=== PATIENT | female | born 1975 ===

== ENCOUNTER 2020-09-27 09:51 | Outpatient (REF) | payer OTHER, SELFPAY ==
--- NOTE | 2020-09-27 10:30 | XR_ITS ---
EXAMINATION: XR HAND WRIST, RIGHT CLINICAL INFORMATION: Pain in right hand COMPARISON: None TECHNIQUE: The patient's pain is indicated to be at the level of the wrist. 4 radiographs focused on the wrist and proximal hand are provided. FINDINGS: Alignment is normal. Small osteophytes are present at the distal radioulnar joint. Otherwise, bones, joints and soft tissues are unremarkable. No evidence of carpal bone fracture, subluxation or focal soft tissue swelling. No chondrocalcinosis. 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
[2020-09-27 11:04] LABS: MANUAL DIFF FLAG NO
[2020-09-27 11:13] LABS: Basophils Absolute Auto 0.1 X10*3/uL (0.0-0.2); Basophils Percent Auto 0.9 % (0-2); Eosinophils Absolute Auto 0.1 X10*3/uL (0.0-0.4); Eosinophils Percent Auto 1.1 % (0-4); Hematocrit 42.5 % (37-47); Hemoglobin 13.2 g/dl (12.0-16.0); Imm Gran Abs Auto 0.02 X10*3/uL (0.00-0.03); Imm Gran Pct Auto 0.3 % (0.0-0.4); Lymphocytes Percent Auto 26.1 % (20-40); Mean Corpuscular HGB Conc 31.1 g/dl (31.0-35.0); Mean Corpuscular Hemoglobin 27.5 pg (27.0-33.0); Mean Corpuscular Volume 88.5 fL (80-98); Mean Platelet Volume 9.9 fL (9.4-12.3); Monocytes Absolute Auto 0.5 X10*3/uL (0.1-1.2); Monocytes Percent Auto 6.7 % (2-11); Neutrophils Absolute Auto 4.9 X10*3/uL (2.0-8.3); Neutrophils Percent Auto 64.9 % (45-73); Platelet Count 403 X10*3/uL (160-400); Red Cell Distribution Width 13.1 % (11.0-16.0); White Blood Count 7.5 X10*3/uL (4.8-10.8)
[2020-09-27 12:09] LABS: TSH reflex Free T4 1.19 mIU/mL (0.32-4.0)
[2020-09-27 12:11] LABS: Alanine Aminotransferase 30 U/L (0-31); Albumin Level 4.3 g/dL (3.5-5.0); Alkaline Phosphatase 96 U/L (39-117); Anion Gap 15 (12-20); Aspartate Amino Transferase 18 U/L (5-31); Bilirubin Total 0.4 mg/dL (0.0-1.0); Blood Urea Nitrogen 14 mg/dL (9-16); Calcium 9.1 mg/dL (8.4-10.2); Carbon Dioxide 26 mmol/L (22-29); Chloride 102 mmol/L (96-108); Cholesterol 199 mg/dL; Estimated Glomerular Filt Rate > 60; Glucose Fasting 96 mg/dL (60-99); HDL Cholesterol 60 mg/dL; LDL Cholesterol Calculated 114 mg/dl; Potassium 4.4 mmol/l (3.3-5.1); Sodium 139 mmol/L (135-145); Total Protein 7.2 g/dL (6.5-8.0); Triglycerides 128 mg/dL
[2020-10-01 13:27] LABS: Vitamin D 25-OH, D2 <4 ng/mL; Vitamin D 25-OH, D3 15 ng/mL; Vitamin D 25-OH, Total 15 ng/mL (30-100)
== END 2020-09-27 09:52 | disposition home or self-care (01) ==
LOC: HO.LAB 09:51
PROVIDERS: PCP Nurse Practitioner Family; Visit Provider Nurse Practitioner Family
DX: M79.641 Pain in right hand (principal); E04.1 Nontoxic single thyroid nodule; M79.7 Fibromyalgia; F32.9 Major depressive disorder, single episode, unspecified; E55.9 Vitamin D deficiency, unspecified
CPT/HCPCS: 36415; 73110; 73130; 80053; 80061; 82306; 84443; 85025

== ENCOUNTER 2020-10-12 09:54 | Outpatient (REF) | payer OTHER, SELFPAY ==
--- NOTE | 2020-10-12 09:57 | US_ITS ---
EXAMINATION: US THYROID CLINICAL INFORMATION: Nontoxic single thyroid nodule. COMPARISON: Ultrasound soft tissue head/neck thyroid dated 01/20/2018 and 12/03/2017. TECHNIQUE: Linear transducer sesay-scale and color Doppler examination with attention to the region of the thyroid. FINDINGS: SIZE: Measurements of the thyroid lobes and nodules are given in sagittal, anteroposterior and transverse dimensions respectively. Right Thyroid Lobe: 5.2 x 1.4 x 1.1 cm, volume 4.2 mL. Previously 5.6 x 1.8 x 1.4 cm, volume 7.5 mL. Parenchyma: The gland echotexture is heterogeneous. Thyroid vascularity is normal. Left Thyroid Lobe: 4.9 x 1.4 x 1.8 cm, volume 6.4 mL. Previously 4.8 x 1.2 x 1.5 cm, volume 4.5 mL. Parenchyma: The gland echotexture is homogeneous. Thyroid vascularity is normal. Isthmus: 0.3 cm in maximum AP dimension. Previously 0.3 cm. RIGHT THYROID LOBE: No nodules. Previously seen 0.3 cm nodule not identified on the current examination. ISTHMUS: No nodules. LEFT THYROID LOBE: No nodules. NODES: No lymphadenopathy is seen in the tissue surrounding the thyroid gland. US/US thyroid IMPRESSION: 1. Homogeneous thyroid parenchyma with normal vascularity. 2. No thyromegaly or discrete thyroid nodule. 3. Previously seen right-sided 0.3 cm nodule not identified on the current examination.
== END 2020-10-12 09:55 | disposition home or self-care (01) ==
LOC: HO.HMGCX 09:54
PROVIDERS: PCP Nurse Practitioner Family; Visit Provider Nurse Practitioner Family
DX: E04.1 Nontoxic single thyroid nodule (principal)
CPT/HCPCS: 76536

== ENCOUNTER 2020-12-08 07:44 | Outpatient (REF) | payer OTHER, SELFPAY ==
--- NOTE | 2020-12-08 08:01 | ECG_ITS ---
Test Reason : CP Blood Pressure : / mmHG Vent. Rate : 055 BPM Atrial Rate : 055 BPM P-R Int : 132 ms QRS Dur : 086 ms QT Int : 442 ms P-R-T Axes : 035 025 019 degrees QTc Int : 422 ms Sinus bradycardia Otherwise normal ECG No previous ECGs available Referred By: Jana Bloom Electronically Signed By:HARVEY MOSQUERA MD
[2020-12-08 08:16] LABS: MANUAL DIFF FLAG NO
[2020-12-08 08:45] LABS: Basophils Absolute Auto 0.1 X10*3/uL (0.0-0.2); Eosinophils Absolute Auto 0.1 X10*3/uL (0.0-0.4); Eosinophils Percent Auto 1.6 % (0-4); Hematocrit 43.1 % (37-47); Hemoglobin 13.5 g/dl (12.0-16.0); Imm Gran Abs Auto 0.02 X10*3/uL (0.00-0.03); Imm Gran Pct Auto 0.3 % (0.0-0.4); Lymphocytes Absolute Auto 1.6 X10*3/uL (1.2-4.9); Lymphocytes Percent Auto 25.7 % (20-40); Mean Corpuscular HGB Conc 31.3 g/dl (31.0-35.0); Mean Corpuscular Hemoglobin 27.7 pg (27.0-33.0); Mean Corpuscular Volume 88.5 fL (80-98); Mean Platelet Volume 9.7 fL (9.4-12.3); Monocytes Absolute Auto 0.4 X10*3/uL (0.1-1.2); Monocytes Percent Auto 5.8 % (2-11); Neutrophils Percent Auto 65.6 % (45-73); Platelet Count 362 X10*3/uL (160-400); Red Blood Count 4.87 X10*6/uL (4.20-5.50); Red Cell Distribution Width 13.5 % (11.0-16.0); White Blood Count 6.1 X10*3/uL (4.8-10.8)
[2020-12-08 09:13] LABS: Alanine Aminotransferase 33 U/L (0-31); Alkaline Phosphatase 95 U/L (39-117); Anion Gap 13 (12-20); Aspartate Amino Transferase 22 U/L (5-31); Bilirubin Total 0.5 mg/dL (0.0-1.0); Blood Urea Nitrogen 12 mg/dL (9-16); Calcium 8.5 mg/dL (8.4-10.2); Carbon Dioxide 24 mmol/L (22-29); Chloride 106 mmol/L (96-108); Cholesterol 185 mg/dL; Estimated Glomerular Filt Rate > 60; Glucose Fasting 110 mg/dL (60-99); HDL Cholesterol 54 mg/dL; LDL Cholesterol Calculated 116 mg/dl; Potassium 4.4 mmol/L (3.3-5.1); Sodium 139 mmol/L (135-145); Total Protein 6.9 g/dL (6.5-8.0); Triglycerides 75 mg/dL; Troponin-I High Sensitivity < 3.5 ng/L (<3.5-17.0)
== END 2020-12-08 07:45 | disposition home or self-care (01) ==
LOC: HO.LAB 07:44
PROVIDERS: PCP Nurse Practitioner Family; Visit Provider Nurse Practitioner Family
DX: R07.9 Chest pain, unspecified (principal)
CPT/HCPCS: 36415; 80053; 80061; 84484; 85025; 93005

== ENCOUNTER 2020-12-26 09:56 | Outpatient (REF) | payer OTHER, SELFPAY ==
[2020-12-28 22:17] LABS: HPV mRNA E6/E7 rflx Not Detected (Not Detected)
== END 2020-12-26 09:57 | disposition home or self-care (01) ==
LOC: HO.LAB 09:56
PROVIDERS: Visit Provider Advanced Practice Midwife
DX: Z01.419 Encounter for gynecological examination (general) (routine) without abnormal findings (principal); N92.6 Irregular menstruation, unspecified; N92.0 Excessive and frequent menstruation with regular cycle; E28.2 Polycystic ovarian syndrome; M79.7 Fibromyalgia; E55.9 Vitamin D deficiency, unspecified; Z85.41 Personal history of malignant neoplasm of cervix uteri; Z80.3 Family history of malignant neoplasm of breast; Z80.41 Family history of malignant neoplasm of ovary
CPT/HCPCS: 87624; 88142

== ENCOUNTER → 2020-12-28 10:02 | Outpatient (BNVA) | payer OTHER, SELFPAY | PROVIDERS: PCP Nurse Practitioner Family; Visit Provider Internal Medicine | DX: R07.2 Precordial pain (principal) | CPT/HCPCS: 99202 ==

== ENCOUNTER 2021-02-26 08:42 | Outpatient (REF) | payer OTHER, SELFPAY ==
--- NOTE | ~2021-02-26 | MM_ITS ---
EXAMINATION: MM SCREENING DIGITAL BREAST TOMOSYNTHESIS, BILATERAL CLINICAL INFORMATION: Screening. Asymptomatic. The lifetime risk of breast cancer based on the Tyrer-Cuzick Model is 20.4%. Additional annual screening with breast MRI may be of benefit in women with a Score of 20% or greater. COMPARISON: Mammography: April 29, 2017 and April 23, 2016 TECHNIQUE: Digital breast tomosynthesis is performed in both the craniocaudal and mediolateral oblique views along with computer-aided detection (CAD). Synthesized 2D images are generated from the tomosynthesis. FINDINGS: The breasts are extremely dense, which lowers the sensitivity of mammography (ACR BI-RADS breast composition Category d). There are no significant masses, abnormal calcifications, or other abnormalities. MM/MM tomosynthesis screening BI IMPRESSION: There are no significant changes from prior study. ASSESSMENT: BI-RADS 1: Negative RECOMMENDATION: Routine annual mammography screening. Consideration of possible screening MRI. This patient's information was entered into a reminder system with a target due date for their next mammogram.
== END 2021-02-26 08:43 | disposition home or self-care (01) ==
LOC: HO.MAMMO 08:42
PROVIDERS: Visit Provider Internal Medicine
DX: Z12.31 Encounter for screening mammogram for malignant neoplasm of breast (principal)
CPT/HCPCS: 77063; 77067

== ENCOUNTER 2021-05-02 09:07 | Outpatient (REF) | payer OTHER, SELFPAY ==
--- NOTE | ~2021-05-02 | XR_ITS ---
EXAMINATION: XR KNEE, RIGHT CLINICAL INFORMATION: Spleen of the unspecified site of the right knee. COMPARISON: None TECHNIQUE: Four views of the right knee. FINDINGS: Osseous mineralization is normal. There is no evidence of fracture or dislocation. Joint spaces are well preserved. No evidence of subarticular sclerosis or cystic changes. Patellar enthesopathic changes are noted at the insertion of from quadriceps tendon. No evidence of suprapatellar joint effusion. No dystrophic soft tissue calcifications. XR/XR knee RT 4V IMPRESSION: Mild changes of patellar enthesopathy at the insertion of quadriceps tendon. No acute osseous abnormality in the right knee.
== END 2021-05-02 09:08 | disposition home or self-care (01) ==
LOC: HO.XRAY 09:07
PROVIDERS: PCP Internal Medicine; Visit Provider Internal Medicine
DX: S83.91XA Sprain of unspecified site of right knee, initial encounter (principal); X58.XXXA Exposure to other specified factors, initial encounter; Y93.9 Activity, unspecified; Y92.9 Unspecified place or not applicable; Y99.9 Unspecified external cause status
CPT/HCPCS: 73564

== ENCOUNTER 2021-06-14 08:33 | Outpatient (REF) | payer OTHER, SELFPAY ==
--- NOTE | ~2021-06-14 | XR_ITS ---
EXAMINATION: XR SHOULDER, LEFT CLINICAL INFORMATION: Pain in left shoulder COMPARISON: None TECHNIQUE: AP external rotation, Grashey, scapular Y, and axillary views of the left shoulder. FINDINGS: The bones and soft tissues are normal. No fracture. Glenohumeral and acromioclavicular alignment is anatomic with normal joint space. No abnormal soft tissue calcifications. XR/XR shoulder LT min 2V IMPRESSION: Normal left shoulder.
[2021-06-14 10:32] LABS: Hematocrit 42.7 % (37-47); Hemoglobin 13.4 g/dl (12.0-16.0); Mean Corpuscular HGB Conc 31.4 g/dl (31.0-35.0); Mean Corpuscular Hemoglobin 28.2 pg (27.0-33.0); Mean Corpuscular Volume 89.9 fL (80-98); Mean Platelet Volume 10.2 fL (9.4-12.3); Platelet Count 611 X10*3/uL (160-400); Red Blood Count 4.75 X10*6/uL (4.20-5.50); Red Cell Distribution Width 13.3 % (11.0-16.0); White Blood Count 9.5 X10*3/uL (4.8-10.8)
[2021-06-14 10:34] LABS: Estimated Average Glucose 100 mg/dL; Hemoglobin A1c % 5.1 %
[2021-06-14 10:43] LABS: Alanine Aminotransferase 22 U/L (0-31); Albumin Level 4.1 g/dL (3.5-5.0); Alkaline Phosphatase 102 U/L (39-117); Anion Gap 13 (12-20); Aspartate Amino Transferase 16 U/L (5-31); Bilirubin Total 0.5 mg/dL (0.0-1.0); Blood Urea Nitrogen 9 mg/dL (9-16); C Reactive Protein 0.61 mg/dL (< or = 0.50); Calcium 9.9 mg/dL (8.4-10.2); Carbon Dioxide 28 mmol/L (22-29); Chloride 102 mmol/L (96-108); Estimated Glomerular Filt Rate > 60; Glucose Fasting 96 mg/dL (60-99); Iron 139 mcg/dL (30-160); Percent Iron Saturation 39 % (15-50); Potassium 4.6 mmol/L (3.3-5.1); Sodium 138 mmol/L (135-145); Total Iron Binding Capacity 352 mcg/dL (228-428); Total Protein 7.1 g/dL (6.5-8.0); Unsaturated Iron Binding 213 ug/dL
[2021-06-14 10:51] LABS: Rheumatoid Factor < 15.0 IU/mL (<15.0)
[2021-06-14 11:03] LABS: TSH reflex Free T4 1.22 uIU/mL (0.32-4.0); Vitamin D 25-OH Total 27.7 ng/mL (>30)
[2021-06-14 11:08] LABS: Folate 16.1 ng/mL (> or = 4.0); Vitamin B12 684 pg/mL (200-900)
[2021-06-14 12:12] LABS: Erythrocyte Sedimentation Rate 8 MM/HR (0-20)
[2021-06-16 11:51] LABS: Anti Nuclear Antibody Screen NEGATIVE (NEGATIVE)
[2021-06-18 17:46] LABS: Cyclic Citrullinated Peptide <16 UNITS
== END 2021-06-14 08:34 | disposition home or self-care (01) ==
LOC: HO.XRAY 08:33
PROVIDERS: PCP Internal Medicine; Visit Provider Physician Assistant
DX: Z13.29 Encounter for screening for other suspected endocrine disorder (principal); R07.89 Other chest pain; D50.9 Iron deficiency anemia, unspecified; M79.7 Fibromyalgia; E55.9 Vitamin D deficiency, unspecified; M25.512 Pain in left shoulder
CPT/HCPCS: 36415; 73030; 80053; 82306; 82607; 82746; 83036; 83540; 84443; 85027; 85652; 86038; 86039; 86140; 86200; 86431

== ENCOUNTER → 2021-07-06 07:47 | Outpatient (REF) | payer OTHER, SELFPAY ==
--- NOTE | 2021-07-06 07:50 | CA_ITS ---
Acquisition Time: 2021-07-06 07:53:03 Total Exercise Time: 00:06:15 Test Indications: Chest Pain Medications: SEE CHART Protocol: CONCEPCION Max HR: 137 BPM 78% of Pred: 175 BPM Max BP: 134/080 mmHG Max Work Load: 7.3 METS Exercise stress test with exercise 6 min 15 sec of Concepcion protocol, achieving 79% MPHR and request to stop due to difficulty keeping up with speed of treadmill in stage 3 and moderate sob, with 5/10 mid chest burning at baseline which did not change during exercise or recovery, without arrythmia, with normotensive response to exercise, with nondiagnostic EKG for ischemia due to suboptimal heart rate. In recovery her breathing improved to normal. Test reviewed with Dr Engle. Message sent to PCP regarding the above results. Recommend exercise nuclear stress test if further eval for ischemia is warranted. Referred By: Lebron Dooley Overread By: RICHARD FLOWER
== END ==
LOC: HO.CARD 07:47
PROVIDERS: PCP Internal Medicine; Visit Provider Physician Assistant
DX: R07.89 Other chest pain (principal)
CPT/HCPCS: 93017

== ENCOUNTER → 2021-07-12 10:56 | Outpatient (BNVA) | payer OTHER, SELFPAY | PROVIDERS: PCP Internal Medicine; Visit Provider Physician Assistant | DX: M75.52 Bursitis of left shoulder (principal); M79.7 Fibromyalgia; E04.1 Nontoxic single thyroid nodule; E55.9 Vitamin D deficiency, unspecified; F41.8 Other specified anxiety disorders | CPT/HCPCS: 99202 ==

== ENCOUNTER 2021-07-13 08:48 | Outpatient (RCR) | payer OTHER, SELFPAY ==
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
== END 2021-07-18 11:33 | disposition home or self-care (01) ==
LOC: HO.PTCHIC 08:48
PROVIDERS: PCP Internal Medicine; Visit Provider Physician Assistant
DX: M51.9 Unspecified thoracic, thoracolumbar and lumbosacral intervertebral disc disorder (principal); M25.512 Pain in left shoulder
CPT/HCPCS: 97110; 97162

== ENCOUNTER 2021-07-16 14:05 | Outpatient (REF) | payer OTHER, SELFPAY ==
[2021-07-17 02:35] LABS: CT PCR NOT DETECTED (Not Detect.); NG PCR NOT DETECTED (Not Detect.)
[2021-07-17 09:25] LABS: BV Int Neg Control Negative (Negative); BV Int Pos Control Positive (Positive)
== END 2021-07-16 14:06 | disposition home or self-care (01) ==
LOC: HO.LAB 14:05
PROVIDERS: PCP Internal Medicine; Visit Provider Advanced Practice Midwife
DX: R10.2 Pelvic and perineal pain (principal); N93.9 Abnormal uterine and vaginal bleeding, unspecified; Z32.02 Encounter for pregnancy test, result negative
CPT/HCPCS: 81003; 81025; 87480; 87491; 87510; 87591; 87660; 99212

== ENCOUNTER → 2021-08-30 14:31 | Outpatient (BNVA) | payer OTHER, SELFPAY | PROVIDERS: PCP Internal Medicine; Visit Provider Orthopaedic Surgery | DX: M25.562 Pain in left knee (principal); M25.561 Pain in right knee; M79.7 Fibromyalgia | CPT/HCPCS: 99202 ==

== ENCOUNTER 2021-10-31 10:28 | Outpatient (REF) | payer OTHER, SELFPAY ==
--- NOTE | ~2021-10-31 | US_ITS ---
EXAMINATION: US THYROID CLINICAL INFORMATION: Nontoxic single thyroid nodule. COMPARISON: Ultrasound soft tissue head/neck thyroid dated 10/12/2020. Ultrasound soft tissue head and neck 01/20/2018. TECHNIQUE: Linear transducer grayscale and color Doppler examination with attention to the region of the thyroid. FINDINGS: SIZE: Measurements of the thyroid lobes and nodules are given in sagittal, anteroposterior and transverse dimensions respectively. Right Thyroid Lobe: 5.1 x 1.4 x 1.5 cm, volume 5.6 mL. Previously 5.2 x 1.4 x 1.1 cm, volume 4.2 mL. Parenchyma: The gland echotexture is homogeneous. Thyroid vascularity is normal. Left Thyroid Lobe: 5.1 x 1.0 x 1.7 cm, volume 4.5 mL. Previously 4.9 x 1.4 x 1.8 cm, volume 6.4 mL. Parenchyma: The gland echotexture is homogeneous. Thyroid vascularity is normal. Isthmus: 0.3 cm in maximum AP dimension. Previously 0.3 cm. No focal thyroid nodule is seen. NODES: No lymphadenopathy is seen in the tissue surrounding the thyroid gland. US/US thyroid IMPRESSION: Normal thyroid ultrasound.
== END 2021-10-31 10:29 | disposition home or self-care (01) ==
LOC: HO.HMGCX 10:28
PROVIDERS: Visit Provider Internal Medicine
DX: E04.1 Nontoxic single thyroid nodule (principal)
CPT/HCPCS: 76536

== ENCOUNTER 2021-11-10 08:28 | Outpatient (REF) | payer OTHER, SELFPAY ==
--- NOTE | ~2021-11-10 | XR_ITS ---
EXAMINATION: CHEST. BILATERAL FOOT. CLINICAL INFORMATION: Cough. COMPARISON: None TECHNIQUE: Chest 2 views. 3. Views each foot. FINDINGS: Chest 2 views: The lungs are well-expanded and clear acute process. Heart size and pulmonary vascularity is normal. No gross bony abnormality seen. Left foot: Visualized intertarsal, metatarsophalangeal and interphalangeal joints are normal. No bony erosive changes or loose body seen. No acute fracture or dislocation. The ankle mortise and subtalar joint is normal. T here is moderate dorsal tarsal metatarsal spurring. There is a moderate size retrocalcaneal and small calcaneal heel enthesophytes. Right foot: The intertarsal, tarsometatarsal, metatarsophalangeal and interphalangeal joint spaces are maintained normal. No beta bony erosive changes. There are no loose bodies or soft tissue swelling. There is a small calcaneal and a moderate-sized retrocalcaneal enthesophyte. Ankle mortise and subtalar joints are normal. XR/XR chest 2V IMPRESSION: Unremarkable chest exam. Bilateral calcaneal and calcaneal enthesophytes. No visible acute fracture, dislocation or subluxation seen. There is a dorsal tarsometatarsal spurring right foot.
--- NOTE | ~2021-11-10 | XR_ITS ---
EXAMINATION: CHEST. BILATERAL FOOT. CLINICAL INFORMATION: Cough. COMPARISON: None TECHNIQUE: Chest 2 views. 3. Views each foot. FINDINGS: Chest 2 views: The lungs are well-expanded and clear acute process. Heart size and pulmonary vascularity is normal. No gross bony abnormality seen. Left foot: Visualized intertarsal, metatarsophalangeal and interphalangeal joints are normal. No bony erosive changes or loose body seen. No acute fracture or dislocation. The ankle mortise and subtalar joint is normal. T here is moderate dorsal tarsal metatarsal spurring. There is a moderate size retrocalcaneal and small calcaneal heel enthesophytes. Right foot: The intertarsal, tarsometatarsal, metatarsophalangeal and interphalangeal joint spaces are maintained normal. No beta bony erosive changes. There are no loose bodies or soft tissue swelling. There is a small calcaneal and a moderate-sized retrocalcaneal enthesophyte. Ankle mortise and subtalar joints are normal. XR/XR foot LT min 3V IMPRESSION: Unremarkable chest exam. Bilateral calcaneal and calcaneal enthesophytes. No visible acute fracture, dislocation or subluxation seen. There is a dorsal tarsometatarsal spurring right foot.
--- NOTE | ~2021-11-10 | XR_ITS ---
EXAMINATION: CHEST. BILATERAL FOOT. CLINICAL INFORMATION: Cough. COMPARISON: None TECHNIQUE: Chest 2 views. 3. Views each foot. FINDINGS: Chest 2 views: The lungs are well-expanded and clear acute process. Heart size and pulmonary vascularity is normal. No gross bony abnormality seen. Left foot: Visualized intertarsal, metatarsophalangeal and interphalangeal joints are normal. No bony erosive changes or loose body seen. No acute fracture or dislocation. The ankle mortise and subtalar joint is normal. T here is moderate dorsal tarsal metatarsal spurring. There is a moderate size retrocalcaneal and small calcaneal heel enthesophytes. Right foot: The intertarsal, tarsometatarsal, metatarsophalangeal and interphalangeal joint spaces are maintained normal. No beta bony erosive changes. There are no loose bodies or soft tissue swelling. There is a small calcaneal and a moderate-sized retrocalcaneal enthesophyte. Ankle mortise and subtalar joints are normal. XR/XR foot RT min 3V IMPRESSION: Unremarkable chest exam. Bilateral calcaneal and calcaneal enthesophytes. No visible acute fracture, dislocation or subluxation seen. There is a dorsal tarsometatarsal spurring right foot.
[2021-11-10 09:17] LABS: MANUAL DIFF FLAG NO
[2021-11-10 09:31] LABS: Basophils Absolute Auto 0.1 X10*3/uL (0.0-0.2); Basophils Percent Auto 0.7 % (0-2); Eosinophils Absolute Auto 0.2 X10*3/uL (0.0-0.4); Eosinophils Percent Auto 1.7 % (0-4); Hematocrit 43.7 % (37.0-47.0); Hemoglobin 13.9 g/dl (12.0-16.0); Imm Gran Abs Auto 0.03 X10*3/uL (0.00-0.03); Imm Gran Pct Auto 0.3 % (0.0-0.4); Lymphocytes Absolute Auto 2.1 X10*3/uL (1.2-4.9); Lymphocytes Percent Auto 23.5 % (20-40); Mean Corpuscular HGB Conc 31.8 g/dl (31.0-35.0); Mean Corpuscular Hemoglobin 28.4 pg (27.0-33.0); Mean Corpuscular Volume 89.2 fL (80.0-98.0); Mean Platelet Volume 9.4 fL (9.4-12.3); Monocytes Absolute Auto 0.5 X10*3/uL (0.1-1.2); Monocytes Percent Auto 5.4 % (2-11); Neutrophils Percent Auto 68.4 % (45-73); Platelet Count 404 X10*3/uL (160-400); Red Cell Distribution Width 13.2 % (11.0-16.0); White Blood Count 8.8 X10*3/uL (4.8-10.8)
[2021-11-15 11:51] LABS: Vitamin D 25-OH, D2 <4 ng/mL; Vitamin D 25-OH, D3 26 ng/mL; Vitamin D 25-OH, Total 26 ng/mL (30-100)
== END 2021-11-10 08:29 | disposition home or self-care (01) ==
LOC: HO.XRAY 08:28
PROVIDERS: PCP Internal Medicine; Visit Provider Internal Medicine
DX: M79.671 Pain in right foot (principal); M79.672 Pain in left foot; R05.9 Cough, unspecified; E55.9 Vitamin D deficiency, unspecified; R79.89 Other specified abnormal findings of blood chemistry
CPT/HCPCS: 36415; 71046; 73630; 82306; 85025

== ENCOUNTER 2021-11-26 13:43 | Outpatient (REF) | payer OTHER, SELFPAY ==
[2021-11-28 13:46] LABS: Transglutaminase Ab IgG <1.0 U/mL; Transglutaminase IgA <1.0 U/mL
== END 2021-11-26 13:44 | disposition home or self-care (01) ==
LOC: HO.LAB 13:43
PROVIDERS: PCP Internal Medicine; Referring Provider Internal Medicine; Visit Provider Nurse Practitioner Family
DX: R10.11 Right upper quadrant pain (principal); R13.10 Dysphagia, unspecified; K59.04 Chronic idiopathic constipation; K21.9 Gastro-esophageal reflux disease without esophagitis; R14.0 Abdominal distension (gaseous)
CPT/HCPCS: 36415; 86364; 99202

== ENCOUNTER 2021-12-17 08:01 | Outpatient (REF) | payer OTHER, SELFPAY ==
--- NOTE | ~2021-12-17 | XR_ITS ---
EXAMINATION: BILATERAL HAND X-RAY AND RIGHT KNEE X-RAY CLINICAL INFORMATION: Pain COMPARISON: Previous right hand x-ray September 2020 TECHNIQUE: 3 views of each hand and 3 views of the right knee FINDINGS: Bilateral hand: Bone alignment is normal. No fracture or dislocation is seen. Joint spaces are normal. Soft tissues are normal. Right knee: Bone alignment is normal. No fracture or dislocation is seen. Joint spaces are normal. There is a small osteophyte at the quadriceps tendon insertion to the patella. There is no joint effusion. XR/XR knee RT 3V IMPRESSION: Bilateral hands: Unremarkable exam Right knee: Small osteophyte at the quadriceps tendon insertion to the patella.
--- NOTE | ~2021-12-17 | XR_ITS ---
EXAMINATION: BILATERAL HAND X-RAY AND RIGHT KNEE X-RAY CLINICAL INFORMATION: Pain COMPARISON: Previous right hand x-ray September 2020 TECHNIQUE: 3 views of each hand and 3 views of the right knee FINDINGS: Bilateral hand: Bone alignment is normal. No fracture or dislocation is seen. Joint spaces are normal. Soft tissues are normal. Right knee: Bone alignment is normal. No fracture or dislocation is seen. Joint spaces are normal. There is a small osteophyte at the quadriceps tendon insertion to the patella. There is no joint effusion. XR/XR hand RT min 3V IMPRESSION: Bilateral hands: Unremarkable exam Right knee: Small osteophyte at the quadriceps tendon insertion to the patella.
--- NOTE | ~2021-12-17 | XR_ITS ---
EXAMINATION: BILATERAL HAND X-RAY AND RIGHT KNEE X-RAY CLINICAL INFORMATION: Pain COMPARISON: Previous right hand x-ray September 2020 TECHNIQUE: 3 views of each hand and 3 views of the right knee FINDINGS: Bilateral hand: Bone alignment is normal. No fracture or dislocation is seen. Joint spaces are normal. Soft tissues are normal. Right knee: Bone alignment is normal. No fracture or dislocation is seen. Joint spaces are normal. There is a small osteophyte at the quadriceps tendon insertion to the patella. There is no joint effusion. XR/XR hand LT min 3V IMPRESSION: Bilateral hands: Unremarkable exam Right knee: Small osteophyte at the quadriceps tendon insertion to the patella.
[2021-12-17 10:02] LABS: Blood Urea Nitrogen 10 mg/dL (9-16)
== END 2021-12-17 08:02 | disposition home or self-care (01) ==
LOC: HO.XRAY 08:01
PROVIDERS: Absent Provider Nurse Practitioner Family; PCP Internal Medicine; Referring Provider Physician Assistant; Visit Provider Internal Medicine
DX: M25.561 Pain in right knee (principal); M79.642 Pain in left hand; M79.641 Pain in right hand; R07.2 Precordial pain; R07.9 Chest pain, unspecified
CPT/HCPCS: 36415; 73130; 73562; 82550; 84520

== ENCOUNTER → 2021-12-27 08:04 | Outpatient (BNVA) | payer OTHER, SELFPAY | PROVIDERS: PCP Internal Medicine; Visit Provider Advanced Practice Midwife | DX: Z13.89 Encounter for screening for other disorder (principal) ==

== ENCOUNTER → 2021-12-31 14:24 | Outpatient (BNVA) | payer OTHER, SELFPAY | PROVIDERS: PCP Internal Medicine; Referring Provider Internal Medicine; Visit Provider Nurse Practitioner Family | DX: Z12.11 Encounter for screening for malignant neoplasm of colon (principal); K21.9 Gastro-esophageal reflux disease without esophagitis; K59.01 Slow transit constipation | CPT/HCPCS: 99212 ==

== ENCOUNTER → 2022-01-24 13:34 | Outpatient (BNVA) | payer OTHER, SELFPAY | PROVIDERS: PCP Internal Medicine; Visit Provider Surgery Vascular Surgery | DX: I83.12 Varicose veins of left lower extremity with inflammation (principal) | CPT/HCPCS: 99202 ==

== ENCOUNTER 2022-01-25 03:46 | Inpatient (IN) | payer OTHER, SELFPAY ==
[2022-01-25] VITALS (11 sets, daily range): BP systolic 116–151; BP diastolic 65–88; PULSE 59–92; RESP 12–66; TEMP 36.6–37.3; O2SAT 95–100; BMI 30.2
--- NOTE | ~2022-01-25 | CT_ITS ---
EXAMINATION: CT ABDOMEN AND PELVIS WITHOUT CONTRAST CLINICAL INFORMATION: Pain, question CBD stone COMPARISON: None TECHNIQUE: Multidetector volumetric imaging was performed from the superior aspect of the liver through the pubic symphysis. Sagittal and coronal reformatted images were obtained on the technologist's workstation. This CT examination was performed using dose optimization techniques as appropriate, variously including the following: *Automated exposure control *Adjustment of mA and/or kV according to patient size (this includes techniques or standardized protocols for targeted exams where dose is matched to indication/reason for exam; i.e. extremities or head) *Use of iterative reconstruction technique DLP: 744 mGy-cm FINDINGS: LUNG BASES: The visualized lung bases are unremarkable. LIVER, GALLBLADDER, AND BILIARY TREE: There is hypoattenuation of the liver suspicious for steatosis. No intrahepatic biliary ductal dilatation. No densely calcified gallstones are seen. Gallbladder is physiologically distended without surrounding inflammation. There is suggestion of wall thickening of the gallbladder fundus which can be seen with adenomyomatosis. Common bile duct appears grossly unremarkable, with no choledocholithiasis is seen. PANCREAS: Unremarkable. SPLEEN: Unremarkable. ADRENAL GLANDS: Unremarkable. KIDNEYS AND URETERS: No hydronephrosis or obstructing calculus bilaterally. There are several scattered bilateral calculi measuring up to a few millimeters in size. BLADDER: Unremarkable. GASTROINTESTINAL TRACT: No evidence of bowel obstruction. Mild sigmoid colon diverticulosis without diverticulitis. No significant bowel wall thickening is seen. The appendix is unremarkable. No free fluid or free air is seen. ABDOMINAL WALL: No significant hernia is appreciated. LYMPH NODES: Normal. VASCULAR: Unremarkable. PELVIC VISCERA: An anterior uterine fibroid is suspected, not well assessed on this noncontrast exam. OSSEOUS STRUCTURES: Scattered endplate osteophytes are present in the spine. CT/CT abdomen pelvis wo IV con IMPRESSION: 1. No appreciable choledocholithiasis, though assessment for this is suboptimal on CT. If clinically warranted, this would be better assessed with MRI/MRCP. 2. Suggestion of wall thickening of the gallbladder fundus, which can be seen with adenomyomatosis. 3. Scattered bilateral renal calculi without hydronephrosis. 4. Hepatic steatosis.
--- NOTE | ~2022-01-25 | FL_ITS ---
EXAMINATION: XR FLUOROSCOPY WITH IMAGES CLINICAL INFORMATION: Cholelithiasis. ERCP performed the patient with elevated liver function tests. COMPARISON: MRCP from 01/25/2022 TECHNIQUE: Fluoroscopy performed by Dr. Hoffmann. Fluoroscopy time: 7.8 minutes DAP: 48.6 Gycm2 Images: 1 FL/FL guidance in OR FINDINGS AND IMPRESSION: This report is provided to document use of fluoroscopic imaging equipment during performance of ERCP. Please refer to the gastroenterology report.
--- NOTE | ~2022-01-25 | MR_ITS ---
EXAMINATION: MR ABDOMEN WITHOUT CONTRAST CLINICAL INFORMATION: Gallstones and elevated liver function tests. Rule out common bile duct stone. COMPARISON: Previous CT of the abdomen and pelvis from earlier the same day TECHNIQUE: MR abdomen is performed without gadolinium contrast. MRCP sequences were also performed. FINDINGS: LUNG BASES: The visualized lung bases are unremarkable. LIVER, GALLBLADDER, AND BILIARY TREE: The liver is normal in size and shape. The liver loses signal on out of phase sequences suggestive of fatty infiltration no focal liver lesion. The gallbladder is filled with gallstones. Gallbladder wall is normal-appearing. The gallbladder is normal in size. There is no pericholecystic fluid. There is a small 2 to 3 mm filling defect in the distal common bile duct suggestive of a common bile duct stone. There is mild left-sided intrahepatic biliary duct dilatation. The extrahepatic bile ducts are upper normal in size measuring up to 8 mm. The distal common bile duct distal to the stone appears smaller measuring 2 to 3 mm. PANCREAS: Pancreas is normal-appearing. The main pancreatic duct is normal. SPLEEN: Unremarkable. ADRENAL GLANDS: Unremarkable. KIDNEYS AND URETERS: The kidneys are normal in size and shape. There is a small cysts in the lower pole of the left kidney. No hydronephrosis. No perinephric stranding. GASTROINTESTINAL TRACT: No bowel obstruction. No ascites or fluid collection. ABDOMINAL WALL: There is a small umbilical hernia containing fat. LYMPH NODES: No lymphadenopathy. VASCULAR: Unremarkable. OSSEOUS STRUCTURES: Marrow signal normal. MR/MR MRCP IMPRESSION: The gallbladder is filled with small gallstones. Mild left-sided intrahepatic biliary duct dilatation. Upper normal-size extrahepatic bile ducts. Small 3 mm filling defect in the distal common bile duct suggestive of a stone.
--- NOTE | 2022-01-25 04:15 | ED_ITS ---
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 [facility] patient comes here as pain is not going away and still has the pain mostly localized in epigastric area with nausea no vomiting no cough no shortness of breath no diarrhea no fever no urinary complaints Related Data Home Medications Medication Instructions Recorded Confirmed ibuprofen 400 mg tablet 800 mg PO Q8H tab 01/03/22 01/03/22 Previous Rx's Medication Instructions Recorded esomeprazole magnesium 40 mg 40 mg PO DAILY #30 cap 11/26/21 capsule,delayed release (Nexium) famotidine 40 mg tablet 40 mg PO BEDTIME #30 tab 11/26/21 sennosides 8.6 mg tablet (Natural 17.2 mg PO BEDTIME #60 tab 11/26/21 Senna Laxative) cholecalciferol (vitamin D3) 50 50 mcg PO DAILY 90 Days #90 cap 12/21/21 mcg (2,000 unit) capsule diclofenac sodium 1 % topical gel 2 g TOPICAL QID PRN #100 g 01/03/22 (Arthritis Pain (diclofenac)) bisacodyl 5 mg tablet,delayed 10 mg PO ONCE 1 Days #2 tab 01/07/22 release (Dulcolax (bisacodyl)) polyethylene glycol 3350 17 238 g PO ONCE #238 g 01/07/22 gram/dose oral powder (Miralax) Allergies Allergy/AdvReac Type Severity Reaction Status Date / Time No Known Allergies Allergy Verified 01/24/22 13:52 Review of Systems Review of Systems Yes all other systems are reviewed and are negative PMFSH Past Medical History Medical History Anxiety and depression Cervical cancer Chest pain Chronic GERD Cough Depression Elevated platelet count FH: breast cancer in first degree relative Fibromyalgia CATHY (generalized anxiety disorder) GERD (gastroesophageal reflux disease) Hand pain, right Left foot pain Moderate recurrent major depression Obesity (BMI 30.0-34.9) PCOS (polycystic ovarian syndrome) Right foot pain Thyroid nodule Vitamin D deficiency Surgical History H/O cone biopsy of cervix H/O tubal ligation Previous back surgery Family History Family History Mother Diabetes Lung cancer Father Pancreatitis Sister History of breast cancer Ovarian cancer Sister Breast cancer, Onset Age: 50 Sister Breast cancer, Onset Age: 50 Sister Thyroid cancer Social History Social History Housing: House Alcohol intake: never Patient Tobacco Use Status: Never used Tobacco e-Cigarette/Vaping Use: Never Used Second Hand Smoke Exposure: No Advance Directives: No Patient : No service: No Current occupational status: employed Current occupation: [employer] Current occupational exposures/hazards: No Cognitive needs: No Hearing needs: No Vision needs: No Physical Exam ED Vital Signs: Vital Signs - 24 hr 01/25/22 03:57 Temperature 98.6 F Pulse Rate 72 Respiratory Rate 18 Blood Pressure 121/73 Pulse Oximetry 95 BMI result Body Mass Index 30.2 Appearance: Alert. Oriented X3. Tearful ,l crying in moderate distress Eyes: No pallor , icterus?? ENT: Pharynx normal. Oral Mucosa moist Neck: Normal inspection. Neck supple. CVS: Normal heart rate and rhythm. Pulses normal. Respiratory: No respiratory distress. Equal air entry bilateral, no wheezing/rales/rhonchi Abdomen: Soft , epigastric tenderness ++,. Mitchell sign negative, Bowel sounds are present, no mass palpable, no CVA tenderness Skin: Skin warm and dry. Normal skin color. Normal skin turgor. Extremities: No lower extremity edema. No calf tenderness Neuro: Oriented X 3. MDM - Abdominal Pain MDM Narrative Medical decision making narrative: 645am:: Patient with gallstones old records reviewed from [facility] on 12/25/2021 her total bilirubin was 0.4 ALT 25 AST 19 on 01/24/2022 patient labs were drawn but not seen by MD at that time her AST was 382 ALT 505 bilirubin 1.9 patient left the ER without seeing any physician. Today patient lab showed 3.9 AST 457 bilirubin of 3.9 AST 457 ALT 739 and alkaline phosphatase 203 CT scan of the abdomen showed distended gallbladder without surrounding in flammation clear-cut stones were not seen no choledocholithiasis seen. Will admit patient for MRCP for further evaluation and GI/surgery consultation. Case discussed with hospitalist Medical Records Attestation: I reviewed the patient's medical records. Medical records narrative: esult type: US RUQ Result date: January 24, 2022 21:02 EDT Result status: Auth (Verified) Result title: US RUQ Performed by: Suzan Casanova MD on January 24, 2022 21:15 EDT Verified by: Sai Joshua MD on January 24, 2022 21:20 EDT Encounter info: [id number], [facility], Disch ES, 01/24/2022 - 01/25/2022 * Final Report * Reason For Exam Abdominal Pain;Other: RESULT: US RUQ US RUQ Hx of Present Illness: epigastric pain since yest; Reason: Other:; Abdominal Pain; Clinical Question(s): Cholecystitis COMPARISON: Correlated with CT abdomen dated today. Prior ultrasound dated 12/25/2021 FINDINGS: Liver: Diffusely echogenic parenchyma. No suspicious lesion. Smooth hepatic contour. Gallbladder: Redemonstration of cholelithiasis without acute inflammation. Normal wall thickness. No pericholecystic fluid. Negative Mitchell sign. Biliary Tree: No intrahepatic or extrahepatic bile duct dilation is identified. Common duct measures: 0.6 cm. Pancreas: Obscured by overlying bowel gas. Right kidney: 10.8 cm in length. Normal parenchymal echotexture and thickness. No hydronephrosis, stone or mass. IMPRESSION: Echogenic liver likely representing hepatic steatosis. Cholelithiasis without evidence of acute cholecystitis. I have personally reviewed the images and I agree with this report. WSN: [id number] Ordering Physician: Bharat Ann Signature Line Dictated By: Suzan Casanova MD Dictated Date/Time: 01/24/22 9:15 pm Reviewed By: Sai Joshua MD Signed By: Sai Joshua MD Signed Date/Time: 01/24/22 9:20 pm Transcribed By: MARKUS Transcribed Date/Time: 01/24/22 9:12 pm esult type: CT Abd/Pelvis W/ IV Contrast Only Result date: December 26, 2021 5:44 EDT Result status: Auth (Verified) Result title: CT Abd/Pelvis W/ IV Contrast Only Performed by: Connor[Radiology] Jeanne KOCH on December 26, 2021 7:37 EDT Verified by: Waqar Franklin MD on December 26, 2021 7:42 EDT Encounter info: [id number], [facility], Disch Obv, 12/26/2021 - 12/26/2021 * Final Report * Reason For Exam RUQ/flank pain;Other: RESULT: CT Abd/Pelvis W/ IV Contrast Only CT Abd/Pelvis W/ IV Contrast Only INDICATION: Right upper quadrant pain. TECHNIQUE: Spiral CT through the abdomen and pelvis with IV contrast formatted in 3 planes. 100 cc of Omnipaque 300 was administered intravenously. This study was performed without oral contrast. Weight-based protocol using automatic tube modulation was used to optimize exposure parameters. CTDIvol Body: 19.60 mGy, DLP Body: 1061 mGy*cm. COMPARISON: 04/29/2020. FINDINGS: Director Risk View Findings, Lines and Tubes: None. Visualized Chest: Lung bases are clear. No pleural effusion. The heart is normal in size. No pericardial effusion. Diaphragm: Normal. Liver: Diffuse low-attenuation throughout the liver parenchyma consistent with hepatic steatosis. No evidence of mass. Gallbladder: The gallbladder is underdistended. Minimal pericholecystic fluid. No surrounding inflammatory changes. The gallbladder wall thickness is at the upper limits of normal. No radiopaque stones. Bile ducts: No biliary ductal dilation. Spleen: Normal. Pancreas: Normal. Adrenal glands: Normal. Kidneys and ureters: Nonobstructive 0.3 cm stone in the right kidney and 0.2 cm stone in the left kidney. No hydronephrosis, no suspicious mass. Simple appearing renal cysts and hypodensities that are too small to characterize are noted, requiring no dedicated follow up. Bladder: Normal. Stomach, small bowel, and large bowel: Small type I hiatal hernia. Minimal nonspecific hyperenhancement of the D2 segment of the duodenum without stranding stranding. Moderate stool burden in the large bowel. Appendix: Normal. Peritoneum, omentum, and mesentery: Diffuse hazy opacity of the fat along the superior mesenteric artery is unchanged since prior study. No pneumoperitoneum, no ascites. No omental or mesenteric lesions. Lymph nodes: No enlarged lymph nodes. Blood vessels: Normal. No aneurysm. No evidence of venous thrombosis. Abdominal and pelvic wall: Small fat-containing umbilical hernia. Reproductive organs: Multiple fibroids, one of which has a subserosal component. Bones: No acute abnormality. IMPRESSION: 1. Minimal pericholecystic fluid present, otherwise the gallbladder is unremarkable in appearance and is nondistended. 2. Mild hyperenhancement of the D2 segment of the duodenum without surrounding stranding is equivocal for mild duodenitis. 3. Nonobstructive bilateral nephrolithiasis, the largest stone measuring 0.3 cm and the right kidney. I have personally reviewed the images and I agree with this report. WSN: [id number] Ordering Physician: Fidelina Kamara Signature Line Dictated By: Connor[Radiology] Jeanne KOCH Dictated Date/Time: 12/26/21 7:37 am Reviewed By: Waqar Franklin MD Signed By: Waqar Franklin MD Signed Date/Time: 12/26/21 7:42 am Transcribed By: MARKUS Transcribed Date/Time: 12/26/21 6:[address] Abd/Pelvis W/ IV Contrast Only This document has an image Lab Data Attestation: I reviewed the patient's lab results. Result diagrams: 01/25/22 04:49 01/25/22 04:49 Labs: Lab Results 01/25/22 01/25/22 Range/Units 04:49 04:49 WBC 8.5 (4.8-10.8) X10*3/uL RBC 4.89 (4.20-5.50) X10*6/uL Hgb 13.5 (12.0-16.0) g/dl Hct 42.5 (37.0-47.0) % MCV 86.9 (80.0-98.0) fL MCH 27.6 (27.0-33.0) pg MCHC 31.8 (31.0-35.0) g/dl RDW 13.8 (11.0-16.0) % Plt Count 409 H (160-400) X10*3/uL MPV 9.2 L (9.4-12.3) fL Immature Gran % (Auto) 0.4 (0.0-0.4) % Neut % (Auto) 74.2 H (45-73) % Lymph % (Auto) 16.4 L (20-40) % [place] % (Auto) 7.3 (2-11) % Eos % (Auto) 0.9 (0-4) % Baso % (Auto) 0.8 (0-2) % Lymph # (Auto) 1.4 (1.2-4.9) X10*3/uL [place] # (Auto) 0.6 (0.1-1.2) X10*3/uL Eos # (Auto) 0.1 (0.0-0.4) X10*3/uL Baso # (Auto) 0.1 (0.0-0.2) X10*3/uL Abs Immat Gran (auto) 0.03 (0.00-0.03) X10*3/uL Absolute Neuts (auto) 6.3 (2.0-8.3) x10*3/uL Absolute Nucleated RBC 0.000 (0.0-0.012) X10*3/uL Nucleated RBC % (auto) 0.0 (0.0-0.2) /100WBC Sodium 138 (135-145) mmol/L Potassium 4.2 (3.3-5.1) mmol/L Chloride 103 (96-108) mmol/L Carbon Dioxide 24 (22-29) mmol/L Anion Gap 15 (12-20) BUN 10 (9-16) mg/dL Creatinine 0.80 (0.5-1.4) mg/dL Estim Creat Clear Calc 87.6 Estimated GFR > 60 Random Glucose 126 H (60-115) mg/dL Calcium 9.7 (8.4-10.2) mg/dL Total Bilirubin 3.9 H (0.0-1.0) mg/dL AST 457 H (5-31) U/L ALT 739 H (0-31) U/L Alkaline Phosphatase 203 H D (39-117) U/L Total Protein 7.0 (6.5-8.0) g/dL Albumin 4.2 (3.5-5.0) g/dL Lipase 21 (8-78) U/L Discharge Plan Discharge Clinical Impression: Biliary colic, Elevated liver function tests Patient Disposition: Admitted As Inpatient
[2022-01-25] MEDS: Magnesium Hydrox/Alum Hydrox 30 ML ORAL.SUSP PO (04:40)
[2022-01-25] MEDS: Lidocaine HCl Viscous 2 % 15 ML SOLUTION MUCOUS MEM (04:40)
[2022-01-25] MEDS: PHENobarb/Hyoscy/Atropine/Scop 10 ML ELIXIR PO (04:40)
[2022-01-25 04:53] LABS: MANUAL DIFF FLAG NO
[2022-01-25 04:54] LABS: Basophils Absolute Auto 0.1 X10*3/uL (0.0-0.2); Basophils Percent Auto 0.8 % (0-2); Eosinophils Absolute Auto 0.1 X10*3/uL (0.0-0.4); Eosinophils Percent Auto 0.9 % (0-4); Hematocrit 42.5 % (37.0-47.0); Hemoglobin 13.5 g/dl (12.0-16.0); Imm Gran Abs Auto 0.03 X10*3/uL (0.00-0.03); Imm Gran Pct Auto 0.4 % (0.0-0.4); Lymphocytes Absolute Auto 1.4 X10*3/uL (1.2-4.9); Lymphocytes Percent Auto 16.4 % (20-40); Mean Corpuscular HGB Conc 31.8 g/dl (31.0-35.0); Mean Corpuscular Hemoglobin 27.6 pg (27.0-33.0); Mean Corpuscular Volume 86.9 fL (80.0-98.0); Mean Platelet Volume 9.2 fL (9.4-12.3); Monocytes Absolute Auto 0.6 X10*3/uL (0.1-1.2); Monocytes Percent Auto 7.3 % (2-11); Neutrophils Absolute Auto 6.3 x10*3/uL (2.0-8.3); Neutrophils Percent Auto 74.2 % (45-73); Platelet Count 409 X10*3/uL (160-400); Red Blood Count 4.89 X10*6/uL (4.20-5.50); Red Cell Distribution Width 13.8 % (11.0-16.0); White Blood Count 8.5 X10*3/uL (4.8-10.8)
[2022-01-25 05:16] LABS: Alanine Aminotransferase 739 U/L (0-31); Albumin Level 4.2 g/dL (3.5-5.0); Alkaline Phosphatase 203 U/L (39-117); Anion Gap 15 (12-20); Aspartate Amino Transferase 457 U/L (5-31); Bilirubin Total 3.9 mg/dL (0.0-1.0); Blood Urea Nitrogen 10 mg/dL (9-16); Calcium 9.7 mg/dL (8.4-10.2); Carbon Dioxide 24 mmol/L (22-29); Chloride 103 mmol/L (96-108); Creatinine Clr Calc Pharmacy 87.6; Estimated Glomerular Filt Rate > 60; Glucose Random 126 mg/dL (60-115); Lipase 21 U/L (8-78); Potassium 4.2 mmol/L (3.3-5.1); Sodium 138 mmol/L (135-145)
[2022-01-25] MEDS: Morphine Sulfate 4 MG/ML CARTRIDGE IVPUSH (05:39)
[2022-01-25] MEDS: 0.9 % Sodium Chloride 1,000 ML 999 ML IV (05:40)
[2022-01-25] MEDS: ondansetron HCL 4 MG/2 ML VIAL IVPUSH ×2 (05:40→11:03)
[2022-01-25 06:54] LABS: COVID-19 Test Negative (Negative)
--- NOTE | 2022-01-25 07:54 | P.CNGI_ITS ---
History of Present Illness Data of Consult Service Date: 01/25/22 Requesting physician: Karen Couch Primary Care Provider: Mary Dupree MD HPI Reason for consult: abdominal pain, elevated LFTs 46 YF with GERD, anxiety and depression presented to [facility] [facility] ED today with abdominal pain: HPI narrative: Patient with chronic right upper quadrant and epigastric pain for more than 1 year, GERD, gallstones, anxiety, depression, fibromyalgia was seen at [facility] yesterday ultrasound was done which was negative for cholecystitis. 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 Today patient lab showed 3.9 AST 457 bilirubin of 3.9 AST 457 ALT 739 and alkaline phosphatase 203 [address] scan of the abdomen showed distended gallbladder without surrounding inflammation clear-cut stones were not seen no choledocholithiasis seen.? Patient was admitted for MRCP for further evaluation and GI/surgery con sultation.? LABS IN [facility] : Reviewed IMAGING STUDIES: 01/25/[address] SCAN SHOWED: 1.? No appreciable choledocholithiasis, though assessment for this is suboptimal on CT. If clinically warranted, this would be better assessed with MRI/MRCP. 2.? Suggestion of wall thickening of the gallbladder fundus, which can be seen with adenomyomatosis. 3.? Scattered bilateral renal calculi without hydronephrosis. 4.? Hepatic steatosis.? PAST GI HISTORY BY REVIEW OF MEDICAL RECORDS: 12/2021 pt was seen by Naomy De León NP in the GI clinic: Patient reports that she has been hospitalized last week for suspicion of cholelithiasis.? Patient was seen at [facility] transferred to [facility] for suspicion of early cholecystitis.? CT scan showed no stones, no wall thickness.? Patient was discharged home.? Patient since last time I saw her has been taking her Nexium and famotidine.? Reports that she has been doing well except for when she does not take the medication she continues to have severe epigastric pain without acid reflux.? Patient was given by providers at [facility] ibuprofen and has been taking it.? Patient reports that she has no relief from that.? I asked patient to stop the ibuprofen at this time due to her severe epigastric discomfort.? Patient states that she was taking Senokot for constipation and was given her diarrhea.? Patient reports since then she has been moving her bowels and stopped taking Sen okot. ? Patient has never had colonoscopy in the past.? Patient will go and get her H pylori testing done so we can treat her if we need to.? Denies? any personal or family history of gastrointestinal disease, colon polyps, or cancer.? Denies history of difficulty with sedation or anesthesia in the past.? Negative for history of sleep apnea.? Denies any history of cardiac, renal, pulmonary, or hepatic disease.?? No history of infectious? diseases like hepatitis A, B, C, HIV or tuberculosis.? Patient is not on any anticoagulation therapy. Review of Systems Review of Systems: Yes all other systems are reviewed and are negative PMFSH Past Medical History Medical History Anxiety and depression Cervical cancer Chest pain Chronic GERD Cough Depression Elevated platelet count FH: breast cancer in first degree relative Fibromyalgia CATHY (generalized anxiety disorder) GERD (gastroesophageal reflux disease) Hand pain, right Left foot pain Moderate recurrent major depression Obesity (BMI 30.0-34.9) PCOS (polycystic ovarian syndrome) Right foot pain Thyroid nodule Vitamin D deficiency Family History Family History Mother Diabetes Lung cancer Father Pancreatitis Sister History of breast cancer Ovarian cancer Sister Breast cancer, Onset Age: 50 Sister Breast cancer, Onset Age: 50 Sister Thyroid cancer Surgical History Surgical History H/O cone biopsy of cervix H/O tubal ligation Previous back surgery Social History Social History Housing: House Alcohol intake: never Patient Tobacco Use Status: Never used Tobacco e-Cigarette/Vaping Use: Never Used Second Hand Smoke Exposure: No service: No Current occupational status: employed Current occupation: [employer] Current occupational exposures/hazards: No Cognitive needs: No Hearing needs: No Vision needs: No Meds Allergies Allergy/AdvReac Type Severity Reaction Status Date / Time No Known Allergies Allergy Verified 01/24/22 13:52 Active Medications: Current Medications Pharmacy Consult (Consult Rx Perform Med Rec) 1 each MISCELLANE ONCE PRN PRN Reason: Consult order Home Medications Medication Instructions Recorded Confirmed Last Taken Type esomeprazole magnesium 40 mg 40 mg PO DAILY@0630 01/25/22 01/25/22 01/24/22 History capsule,delayed release (Nexium) Physical Exam Vital Signs: Vital Signs: Last Vital Signs Temp 98.6 F 01/25/22 07:02 Pulse 63 01/25/22 07:02 Resp 14 01/25/22 07:02 BP 130/69 01/25/22 07:02 Pulse Ox 98 01/25/22 07:02 BMI result Body Mass Index 30.2 Const: General: no acute distress, anxious and ill appearing Nutritional Appearance: obese Orientation/consciousness: patient oriented x3 Limitations: no limitations HEENT: Head: Yes normal to inspection Ears: hearing grossly normal isis aterally Eyes: Sclerae: sclerae normal Pupils: Equal, round and reactive pupils present Neck: Neck: Yes normal visual inspection Chest: Chest palpation & inspection: normal inspection of the chest Resp: Effort & Inspection: normal respiratory effort Auscultation: clear to auscultation bilaterally Cardio: Palpation: normal PMI Rate: regular rate Rhythm: regular rhythm Heart sounds: S1 normal heart sound present, S2 normal heart sound present and no murmurs GI: Palpation (GI): Soft to palpation, Tenderness to palpation present (GI) (mild diffuse upper abdominal tenderness) and No hepatosplenomegaly present Auscultation: normal bowel sounds Rectal Exam - Female: deferred Skin: General skin exam: no rashes or lesions noted Neuro: General: patient oriented x3, gait normal and moves all extremities Cranial nerves: Yes Equal, round and reactive pupils present Psych: Appearance: grossly normal Mental Status: mental status grossly normal Results Labs CBC & Chem 7: 01/25/22 04:49 01/25/22 04:49 Labs: Short CBC 05/06/22 Range/Units 04:49 WBC 8.5 (4.8-10.8) X10*3/uL Hgb 13.5 (12.0-16.0) g/dl Hct 42.5 (37.0-47.0) % Plt Count 409 H (160-400) X10*3/uL BMP 01/25/22 04:49 Sodium 138 Potassium 4.2 Chloride 103 Carbon Dioxide 24 BUN 10 Creatinine 0.80 Calcium 9.7 Liver Function 01/25/22 Range/Units 04:49 Total Bilirubin 3.9 H (0.0-1.0) mg/dL AST 457 H (5-31) U/L ALT 739 H (0-31) U/L Alkaline Phosphatase 203 H D (39-117) U/L Albumin 4.2 (3.5-5.0) g/dL Assessment and Plan (1) Biliary colic: Status: Acute (2) Elevated liver function tests: Status: Acute (3) GERD (gastroesophageal reflux disease): Qualifiers: Esophagitis presence: esophagitis presence not specified Qualified Code(s): K21.9 - Gastro-esophageal reflux disease without esophagitis Plan 46 YF with GERD, anxiety and depression presented to [facility] ED today with abdominal pain for the past 2 days. Pt has a history of recurrent RUQ pain radiating to the back for the past several weeks. Labs showed elevated LFTs RECOMMENDATIONS: 1. Agree with proceeding with an MRCP. If MRCP shows CBD stone, pt will need an ERCP. 2. Repeat LFTs 3. Surgery consult for Lap Alejandra ADDENDUM: MRCP SHOWED: The gallbladder is filled with small gallstones. Mild left-sided intrahepatic biliary duct dilatation. Upper normal-size extrahepatic bile ducts. Small 3 mm filling defect in the distal common bile duct suggestive of a stone. Pt scheduled for an ERCP with Dr Hoffmann. Procedures Date of Service Date of Service: 01/25/22
--- NOTE | 2022-01-25 08:56 | PHA.MEDREC ---
Pharmacy Consult ? Medication Reconciliation Pharmacy has completed the medication reconciliation. Spoke with patient in the ED.
[2022-01-25] MEDS: Morphine Sulfate 4 MG/ML CARTRIDGE 2 MG IVPUSH ×2 (11:03→19:53)
[2022-01-25 11:22] LABS: Appearance Urine CLEAR; Color Urine YELLOW; Glucose Urine UA NEG (NEG); Leukocyte Esterase Urine NEG (NEG); Nitrite Urine NEG (NEG); PH 6.5 (5.0-8.0); Specific Gravity - Urine 1.025 (1.005-1.025); Urine Blood NEG (NEG); Urine Ketones 5 MG/DL (NEG); Urine Protein NEG (NEG-TRACE)
--- NOTE | 2022-01-25 11:39 | PM.IMHP ---
History of Present Illness Date of Service: 01/25/22 Attending physician on admission: Jude Hunt Chief Complaint: abdominal pain This is a 46 year old female who presents to the ED with complaints of abdominal pain. She was seen for abdominal pain in December and at that time she was diagnosed to have gallstones but did not undergo cholecystectomy. She was told to follow up if she had abdominal pain after eating. Friday she began having upper to mid abdominal pain which was worse with eating and radiated around to her back. This was associated with nausea but no vomiting, diarrhea, fever, chills. She went to [facility] Emergency Department last night but due to extensive weight she left without being seen. She came to [facility] Emergency Department this morning. Her LFTs were noted to be elevated. CT scan of the abdomen showed no appreciable choledocholithiasis. However given the elevation in her LFTs the decision was made to admit her to the hospital for further management and evaluation. Review of Systems Review of Systems: Yes all other systems are reviewed and are negative Constitutional: Constitutional: Denies chills and Denies fever(s) Cardiovascular: Cardiovascular: Denies chest pain, Denies palpitations and Denies dyspnea Respiratory: Respiratory: Denies cough and Denies dyspnea Gastrointestinal: Gastrointestinal: Reports abdominal pain, Denies diarrhea, Reports nausea and Denies vomiting Endocrine: Endocrine: Denies palpitations [facility] Medical History Anxiety and depression Cervical cancer Chest pain Chronic GERD Cough Depression Elevated platelet count FH: breast cancer in first degree relative Fibromyalgia CATHY (generalized anxiety disorder) GERD (gastroesophageal reflux disease) Hand pain, right Left foot pain Moderate recurrent major depression Obesity (BMI 30.0-34.9) PCOS (polycystic ovarian syndrome) Right foot pain Thyroid nodule Vitamin D deficiency Functional capacity: independent ambulation Family History Mother Diabetes Lung cancer Father Pancreatitis Sister History of breast cancer Ovarian cancer Sister Breast cancer, Onset Age: 50 Sister Breast cancer, Onset Age: 50 Sister Thyroid cancer Surgical History H/O cone biopsy of cervix H/O tubal ligation Previous back surgery Social History Housing: House Alcohol intake: never Patient Tobacco Use Status: Never used Tobacco e-Cigarette/Vaping Use: Never Used Second Hand Smoke Exposure: No Advance Directives: No Patient : No service: No Current occupational status: employed Current occupation: [employer] Current occupational exposures/hazards: No Cognitive needs: No Hearing needs: No Vision needs: No Meds Allergies Allergy/AdvReac Type Severity Reaction Status Date / Time No Known Allergies Allergy Verified 01/24/22 13:52 Active Medications: Current Medications Acetaminophen (Acetaminophen 325 Mg Tablet) 650 mg PO Q6H PRN PRN Reason: Pain, Mild (Pain Scale 1-3) Docusate Sodium (Docusate Sodium 100 Mg Capsule) 100 mg PO DAILY PRN PRN Reason: Constipation Morphine Sulfate (Morphine Sulfate 4 Mg/Ml Cartridge) 2 mg IVPUSH Q4H PRN; Protocol PRN Reason: Pain, Severe (Pain Scale 7-10) Last Admin: 01/25/22 11:03 Dose: 2 mg Documented by: Ondansetron HCl (Ondansetron Hcl 4 Mg/2 Ml Vial) 4 mg IVPUSH Q8H PRN PRN Reason: Nausea and Vomiting Last Admin: 01/25/22 11:03 Dose: 4 mg Documented by: Pharmacy Consult (Consult Rx Perform Med Rec) 1 each MISCELLANE ONCE PRN PRN Reason: Consult order Sodium Chloride (0.9 % Sodium Chloride Flush 3 Ml Syringe) 3 ml IVFLUSH [facility] Medications Medication Instructions Recorded Confirmed Last Taken Type esomeprazole magnesium 40 mg 40 mg PO DAILY@0630 01/25/22 01/25/22 01/24/22 History capsule,delayed release (Nexium) Physical Exam Vital Signs and Narrative: Vital Signs: Last Vital Signs Temp 99.2 F 01/25/22 10:44 Pulse 71 01/25/22 10:44 Resp 12 01/25/22 10:44 BP 135/65 01/25/22 10:44 Pulse Ox 98 01/25/22 10:44 BMI result Body Mass Index 30.2 Const: General: cooperative, no acute distress, alert and awake Nutritional Appearance: overweight Orientation/consciousness: patient oriented x3 Eyes: Pupils: Equal, round and reactive pupils present EOM: EOMs intact bilaterally Resp: Effort & Inspection: normal respiratory effort and able to speak in complete sentences Auscultation: clear to auscultation bilaterally Cardio: Jugular venous distension: no JVD Rate: regular rate Heart sounds: S1 normal heart sound present and S2 normal heart sound present GI: Other: tender upper abdomen, +BS Palpation (GI): Soft to palpation Neuro: General: patient oriented x3 Cranial nerves: Yes Equal, round and reactive pupils present Extrem: General: Yes no pedal edema Results Labs CBC and Chem 7: 01/25/22 04:49 01/25/22 04:49 Labs: Laboratory Results - last 24 hr 01/25/22 01/25/22 01/25/22 04:49 04:49 06:35 MCV 86.9 MCH 27.6 MCHC 31.8 RDW 13.8 Plt Count 409 H MPV 9.2 L Immature Gran % (Auto) 0.4 Neut % (Auto) 74.2 H Lymph % (Auto) 16.4 L Jenkins % (Auto) 7.3 Eos % (Auto) 0.9 Baso % (Auto) 0.8 Lymph # (Auto) 1.4 Jenkins # (Auto) 0.6 Eos # (Auto) 0.1 Baso # (Auto) 0.1 Abs Immat Gran (auto) 0.03 Absolute Neuts (auto) 6.3 Absolute Nucleated RBC 0.000 Nucleated RBC % (auto) 0.0 Anion Gap 15 Estim Creat Clear Calc 87.6 Estimated GFR > 60 Random Glucose 126 H Calcium 9.7 Total Bilirubin 3.9 H AST 457 H ALT 739 H Alkaline Phosphatase 203 H D Total Protein 7.0 Albumin 4.2 Lipase 21 Urine Color Urine Appearance Urine pH Ur Specific [place] Urine Protein Urine Glucose (UA) Urine Ketones Urine Blood Urine Nitrite Ur Leukocyte Esterase COVID-19 (TRISH) Negative COVID-19 Clin Com See Note 01/25/22 11:05 MCV MCH MCHC RDW Plt Count MPV Immature Gran % (Auto) Neut % (Auto) Lymph % (Auto) Jenkins % (Auto) Eos % (Auto) Baso % (Auto) Lymph # (Auto) Jenkins # (Auto) Eos # (Auto) Baso # (Auto) Abs Immat Gran (auto) Absolute Neuts (auto) Absolute Nucleated RBC Nucleated RBC % (auto) Anion Gap Estim Creat Clear Calc Estimated GFR Random Glucose Calcium Total Bilirubin AST ALT Alkaline Phosphatase Total Protein Albumin Lipase Urine Color YELLOW Urine Appearance CLEAR Urine pH 6.5 Ur Specific [place] 1.025 Urine Protein NEG Urine Glucose (UA) NEG Urine Ketones 5 Urine Blood NEG Urine Nitrite NEG Ur Leukocyte Esterase NEG COVID-19 (TRISH) COVID-19 Clin Com Imaging Radiologist's Impressions: Impressions Abdomen/Pelvis CT 01/25/22 06:00 IMPRESSION: 1. No appreciable choledocholithiasis, though assessment for this is suboptimal on CT. If clinically warranted, this would be better assessed with MRI/MRCP. 2. Suggestion of wall thickening of the gallbladder fundus, which can be seen with adenomyomatosis. 3. Scattered bilateral renal calculi without hydronephrosis. 4. Hepatic steatosis. Cholangiopancreatography MRI 01/25/22 09:53 IMPRESSION: The gallbladder is filled with small gallstones. Mild left-sided intrahepatic biliary duct dilatation. Upper normal-size extrahepatic bile ducts. Small 3 mm filling defect in the distal common bile duct suggestive of a stone. Assessment and Plan (1) Biliary colic: Status: Acute (2) Elevated liver function tests: Status: Acute Plan This is a 46-year-old female with history of arthritis, fibromyalgia, cholelithiasis who presents to the emergency department with abdominal pain found to have elevated LFTs Abdominal pain LFTs elevated nonobstructive pattern MRCP pending to evaluate for choledocholithiasis GI consult NPO until MRCP completed Trend LFTs gerd continue PPI dvt ppx - mechanical devices/early ambulation attending - dr. hunt will likely need two midnight stay for workup and treatment of elevated LFTs and likely choledocholithiasis Quality Stroke Does the patient have a stroke diagnosis?: No VTE Prior VTE?: No VTE Risk Level:: Medical - moderate - high VTE Device Contraindication: N/A - Device Ordered VTE Drug Contraindication: Treatment Not Indicated
[2022-01-25 12:50] LABS: Alanine Aminotransferase 659 U/L (0-31); Albumin Level 3.6 g/dL (3.5-5.0); Alkaline Phosphatase 184 U/L (39-117); Aspartate Amino Transferase 327 U/L (5-31); Bilirubin Direct 2.9 mg/dL (0.0-0.5); Total Protein 6.4 g/dL (6.5-8.0)
--- NOTE | 2022-01-25 13:59 | MHC.SHP ---
Pre-Procedural Eval Section A Date of Service: 01/25/22 The patient is an INPATIENT: Yes Changes since office visit: No Cold of Flu in the past 2 weeks, No New Medical Problems, No Changes in Medication and No Patient answered all questions The History & Physical has been completed within 30 days and I have reviewed it.: Yes Section B Chief Complaint: Abdominal pain Allergies: Allergies Allergy/AdvReac Type Severity Reaction Status Date / Time No Known Allergies Allergy Verified 01/24/22 13:52 Plan I have reviewed the history and physical and performed a pertinent physical examination on my patient. No changes have occurred unless specified.
--- NOTE | 2022-01-25 14:48 | P.CONAN_ITS ---
HPI - Anesthesia Eval Consult details Narrative: 46 yo female patient for ERCP PMFSH Active Problems Active Problems: All Active Problems (Updated 01/25/22 @ 06:47 by Madhav Moore MD) Biliary colic (Acute) Elevated liver function tests (Acute) Varicose veins of left lower extremity with inflammation (Acute) Rib pain on right side (Acute) GERD (gastroesophageal reflux disease) (Acute) Bilateral hand pain (Acute) Cough (Acute) Right foot pain (Acute) Left foot pain (Acute) Elevated platelet count (Acute) CATHY (generalized anxiety disorder) (Acute) Moderate recurrent major depression (Acute) Bilateral knee pain (Acute) Fibromyalgia (Acute) Left rotator cuff tear (Acute) Subacromial bursitis of left shoulder joint (Acute) Pain in left shoulder (Acute) Peripheral vascular disease (Acute) Obesity (BMI 30.0-34.9) (Acute) Right knee sprain (Acute) Bunion, right (Acute) Precordial chest pain (Acute) Heavy menstrual bleeding (Acute) Irregular menses (Acute) Hx of cervical cancer (Acute) Vitamin D deficiency (Acute) Thyroid nodule (Acute) H/o irregular heartbeat Past Medical History Medical History Anxiety and depression Cervical cancer Chest pain Chronic GERD Cough Depression Elevated platelet count FH: breast cancer in first degree relative Fibromyalgia CATHY (generalized anxiety disorder) GERD (gastroesophageal reflux disease) Hand pain, right Left foot pain Moderate recurrent major depression Obesity (BMI 30.0-34.9) PCOS (polycystic ovarian syndrome) Right foot pain Thyroid nodule Vitamin D deficiency Functional capacity: independent ambulation Family History Family History Mother Diabetes Lung cancer Father Pancreatitis Sister History of breast cancer Ovarian cancer Sister Breast cancer, Onset Age: 50 Sister Breast cancer, Onset Age: 50 Sister Thyroid cancer Family history of problems with anesthesia: No Surgical History Surgical History H/O cone biopsy of cervix H/O tubal ligation Previous back surgery History of Problems with Anesthesia: Yes (Slow awakening ) Social History Social History Housing: House Alcohol intake: never Patient Tobacco Use Status: Never used Tobacco e-Cigarette/Vaping Use: Never Used Second Hand Smoke Exposure: No service: No Current occupational status: employed Current occupation: [employer] Current occupational exposures/hazards: No Cognitive needs: No Hearing needs: No Vision needs: No Meds Allergies Allergy/AdvReac Type Severity Reaction Status Date / Time No Known Allergies Allergy Verified 01/24/22 13:52 Active Medications: Current Medications Acetaminophen (Acetaminophen 325 Mg Tablet) 650 mg PO Q6H PRN PRN Reason: Pain, Mild (Pain Scale 1-3) Docusate Sodium (Docusate Sodium 100 Mg Capsule) 100 mg PO DAILY PRN PRN Reason: Constipation Levofloxacin (Levaquin) 500 mg in 100 mls @ 100 mls/hr IV PREOP ONE Stop: 01/25/22 14:56 Morphine Sulfate (Morphine Sulfate 4 Mg/Ml Cartridge) 2 mg IVPUSH Q4H PRN; Protocol PRN Reason: Pain, Severe (Pain Scale 7-10) Last Admin: 01/25/22 11:03 Dose: 2 mg Documented by: Omeprazole (Omeprazole 20 Mg Capsule.Dr) 20 mg PO DAILY@06 [facility] Ondansetron HCl (Ondansetron Hcl 4 Mg/2 Ml Vial) 4 mg IVPUSH Q8H PRN PRN Reason: Nausea and Vomiting Last Admin: 01/25/22 11:03 Dose: 4 mg Documented by: Pharmacy Consult (Consult Rx Perform Med Rec) 1 each MISCELLANE ONCE PRN PRN Reason: Consult order Sodium Chloride (0.9 % Sodium Chloride Flush 3 Ml Syringe) 3 ml IVFLUSH [facility] Home Medications Medication Instructions Recorded Confirmed Last Taken Type esomeprazole magnesium 40 mg 40 mg PO DAILY@0630 01/25/22 01/25/22 01/24/22 History capsule,delayed release (Nexium) Exam Exam Date and Time: January 25, 2022 1448 Height,Weight and Vital Signs: Height 5 ft 3 in Weight 77.564 kg Last Vital Signs Temp 98.4 F 01/25/22 13:36 Pulse 59 01/25/22 13:36 Resp 16 01/25/22 13:36 BP 116/71 01/25/22 13:36 Pulse Ox 98 01/25/22 13:36 Pertinent Lab Results Pertinent Lab Results: Laboratory Tests 01/25/22 01/25/2222 04:49 04:49 06:35 WBC 8.5 RBC 4.89 Hgb 13.5 Hct 42.5 MCV 86.9 MCH 27.6 MCHC 31.8 RDW 13.8 Plt Count 409 H MPV 9.2 L Immature Gran % (Auto) 0.4 Neut % (Auto) 74.2 H Lymph % (Auto) 16.4 L [place] % (Auto) 7.3 Eos % (Auto) 0.9 Baso % (Auto) 0.8 Lymph # (Auto) 1.4 [place] # (Auto) 0.6 Eos # (Auto) 0.1 Baso # (Auto) 0.1 Abs Immat Gran (auto) 0.03 Absolute Neuts (auto) 6.3 Absolute Nucleated RBC 0.000 Nucleated RBC % (auto) 0.0 Sodium 138 Potassium 4.2 Chloride 103 Carbon Dioxide 24 Anion Gap 15 BUN 10 Creatinine 0.80 Estim Creat Clear Calc 87.6 Estimated GFR > 60 Random Glucose 126 H Calcium 9.7 Total Bilirubin 3.9 H Direct Bilirubin AST 457 H ALT 739 H Alkaline Phosphatase 203 H D Total Protein 7.0 Albumin 4.2 Lipase 21 Urine Color Urine Appearance Urine pH Ur Specific [place] Urine Protein Urine Glucose (UA) Urine Ketones Urine Blood Urine Nitrite Ur Leukocyte Esterase COVID-19 (TRISH) Negative COVID-19 Clin Com See Note 01/25/22 01/25/22 11:05 12:15 WBC RBC Hgb Hct MCV MCH MCHC RDW Plt Count MPV Immature Gran % (Auto) Neut % (Auto) Lymph % (Auto) [place] % (Auto) Eos % (Auto) Baso % (Auto) Lymph # (Auto) [place] # (Auto) Eos # (Auto) Baso # (Auto) Abs Immat Gran (auto) Absolute Neuts (auto) Absolute Nucleated RBC Nucleated RBC % (auto) Sodium Potassium Chloride Carbon Dioxide Anion Gap BUN Creatinine Estim Creat Clear Calc Estimated GFR Random Glucose Calcium Total Bilirubin 4.0 H Direct Bilirubin 2.9 H AST 327 H ALT 659 H Alkaline Phosphatase 184 H Total Protein 6.4 L Albumin 3.6 Lipase Urine Color YELLOW Urine Appearance CLEAR Urine pH 6.5 Ur Specific [place] 1.025 Urine Protein NEG Urine Glucose (UA) NEG Urine Ketones 5 Urine Blood NEG Urine Nitrite NEG Ur Leukocyte Esterase NEG COVID-19 (TRISH) COVID-19 Clin Com Airway Mallampati Class: III (Small mouth opening) TM Dist: >3cm Neck ROM: Full Loose/Missing/Broken Teeth: No Heart: RRR Lungs: CTAB Assessment and Plan Assessment Anesthesia Assessment: Anesthesia Plan Discussed and Chart Reviewed Final Anesthetic Review Family History of Problems with Anesthesia: No History of Problems with Anesthesia: Yes (Slow awakening ) NPO: Yes ASA Class: II and Emergency Final Preanesthetic Review: No Changes in Pt Med Stat, Meds/Allgs Chart Reviewed, Consent Obtained/Reviewed and Anes Risks/Benef Reviewed Patient Risk: Intermediate Procedure Risk: Low Assessment/Block/Sedation in SS: Assess/Block/Sedation-SS Anesthetic Plan Anesthetic Plan: GA Disposition: Standard PACU
--- NOTE | 2022-01-25 16:42 | PM.OP ---
Brief Operative Note Date of Service: 01/25/22 Pre-op diagnosis: cbd stone Post-op diagnosis: same Procedure: attempted ERCP Surgeon: Agustín Hoffmann Anesthesia: GETA Was an Associate [employer] used for this Procedure?: No Estimated blood loss (mL): 0 Pathology: none sent Condition: stable Disposition: PACU
--- NOTE | 2022-01-25 16:51 | PM.EVENT ---
Event Note Date of Service: 01/25/22 Event Note: GI ERCP attempted but cbd cannulation was not successful. I am making arrangements for transfer to a tertiary care center for repeat ERCP. NPO for now iv abx
--- NOTE | 2022-01-25 17:09 | P.DS_ITS ---
DS: Providers Provider Date of Service: 01/25/22 Date of admission: 01/25/22 09:14 Date of discharge: 01/25/22 Primary care physician: Mary Dupree MD Consults: 01/25/22 07:40 Consult to Gastroenterology Routine Consulting Provider: Wilver Diaz Reason for consultation: abdominal pain, elevated LFTs Has provider been notified: No 01/25/22 14:12 Consult to General Surgery Routine Consulting Provider: [facility] General Surgeons Reason for consultation: gallstones Attending physician on discharge: Jude Becerril Discharging clinician: Karen Cocuh DS: Diagnosis Discharge Diagnosis (1) Biliary colic: Status: Acute (2) Elevated liver function tests: Status: Acute (3) Choledocholithiasis: Status: Acute DS: Summary Hospital Course Hospital Course: From H&P This is a 46 year old female who presents to the ED with complaints of abdominal pain.? She was seen for abdominal pain in December and at that time she was diagnosed to have gallstones but did not undergo cholecystectomy.? She was told to follow up if she had abdominal pain after eating.? Friday afternoon she began having upper to mid abdominal pain which was worse with eating and radiated around to her back.? This was associated with nausea but no vomiting, diarrhea, fever, chills.? She went to [facility] Emergency Department last night but due to extensive weight she left without being seen.? She came to [facility] Emergency Department this morning.? Her LFTs were noted to be elevated.? CT scan of the abdomen showed no appreciable choledocholithiasis.? However given the elevation in her LFTs the decision was made to admit her to the hospital for further management and evaluation.: Abdominal Pain LFTs elevated in obstructive pattern. MRCP was obtained which showed gallbladder filled with gallstones and intrahepatic biliary duct dilation and filling defect in the distal common bile duct suggestive of a stone. She was seen in consultation by GI who recommended to proceed with ERCP. ERCP was attempted but unfortunately was unsuccessful. GI recommended to transfer to tertiary care facility for repeat attempt, he reached out to Dr. Smith at [facility] who was open to receiving the patient in transfer. The case was discussed with the hospitalist service and she was accepted. She has remained afebrile and has no leukocytosis. She was started on Levquin as prophylaxis prior to procedure and will be continued given instrumentation during attempted ERCP. She will remain NPO in preparation for procedure. Status at Discharge Functional status at discharge: independent ambulation Time Spent with Patient Time attestation: Total time spent providing and/or coordinating discharge services: Discharge coordination time: Greater than 30 minutes Quality: Safe Use of Opioids Does Pt have an Active Cancer Diagnosis on the Problem List?: No Quality: Stroke Does the patient have a stroke diagnosis?: No Physical Exam Vital Signs: Vital Signs: Last Vital Signs Temp 98.2 F 01/25/22 16:55 Pulse 90 01/25/22 17:05 Resp 16 01/25/22 17:05 BP 145/67 H 01/25/22 17:05 Pulse Ox 98 01/25/22 17:05 BMI result Body Mass Index 30.2 Const: General: cooperative, no acute distress, alert and awake Nutritional Appearance: overweight Orientation/consciousness: patient oriented x3 Eyes: Pupils: Equal, round and reactive pupils present EOM: EOMs intact bilaterally Resp: Effort & Inspection: normal respiratory effort and able to speak in complete sentences Auscultation: clear to auscultation bilaterally Cardio: Jugular venous distension: no JVD Rate: regular rate Heart sounds: S1 normal heart sound present and S2 normal heart sound present GI: Other: tender upper abdomen, +BS Palpation (GI): Soft to palpation Neuro: General: patient oriented x3 Cranial nerves: Yes Equal, round and reactive pupils present Extrem: General: Yes no pedal edema DS: Data Data Completed and Pending Labs on day of discharge: Laboratory Results - last 24 hr 01/25/22 01/25/22 01/25/22 04:49 04:49 06:35 WBC 8.5 RBC 4.89 Hgb 13.5 Hct 42.5 MCV 86.9 MCH 27.6 MCHC 31.8 RDW 13.8 Plt Count 409 H MPV 9.2 L Immature Gran % (Auto) 0.4 Neut % (Auto) 74.2 H Lymph % (Auto) 16.4 L [place] % (Auto) 7.3 Eos % (Auto) 0.9 Baso % (Auto) 0.8 Lymph # (Auto) 1.4 [place] # (Auto) 0.6 Eos # (Auto) 0.1 Baso # (Auto) 0.1 Abs Immat Gran (auto) 0.03 Absolute Neuts (auto) 6.3 Absolute Nucleated RBC 0.000 Nucleated RBC % (auto) 0.0 Sodium 138 Potassium 4.2 Chloride 103 Carbon Dioxide 24 Anion Gap 15 BUN 10 Creatinine 0.80 Estim Creat Clear Calc 87.6 Estimated GFR > 60 Random Glucose 126 H Calcium 9.7 Total Bilirubin 3.9 H Direct Bilirubin AST 457 H ALT 739 H Alkaline Phosphatase 203 H D Total Protein 7.0 Albumin 4.2 Lipase 21 Urine Color Urine Appearance Urine pH Ur Specific [place] Urine Protein Urine Glucose (UA) Urine Ketones Urine Blood Urine Nitrite Ur Leukocyte Esterase COVID-19 (TRISH) Negative COVID-19 Clin Com See Note 01/25/22 01/25/22 11:05 12:15 WBC RBC Hgb Hct MCV MCH MCHC RDW Plt Count MPV Immature Gran % (Auto) Neut % (Auto) Lymph % (Auto) [place] % (Auto) Eos % (Auto) Baso % (Auto) Lymph # (Auto) [place] # (Auto) Eos # (Auto) Baso # (Auto) Abs Immat Gran (auto) Absolute Neuts (auto) Absolute Nucleated RBC Nucleated RBC % (auto) Sodium Potassium Chloride Carbon Dioxide Anion Gap BUN Creatinine Estim Creat Clear Calc Estimated GFR Random Glucose Calcium Total Bilirubin 4.0 H Direct Bilirubin 2.9 H AST 327 H ALT 659 H Alkaline Phosphatase 184 H Total Protein 6.4 L Albumin 3.6 Lipase Urine Color YELLOW Urine Appearance CLEAR Urine pH 6.5 Ur Specific [place] 1.025 Urine Protein NEG Urine Glucose (UA) NEG Urine Ketones 5 Urine Blood NEG Urine Nitrite NEG Ur Leukocyte Esterase NEG COVID-19 (TRISH) COVID-[address] scan - abdomen: Radiologist's impression: ITS Impressions Abdomen/Pelvis CT 01/25/22 06:00 IMPRESSION: 1. No appreciable choledocholithiasis, though assessment for this is suboptimal on CT. If clinically warranted, this would be better assessed with MRI/MRCP. 2. Suggestion of wall thickening of the gallbladder fundus, which can be seen with adenomyomatosis. 3. Scattered bilateral renal calculi without hydronephrosis. 4. Hepatic steatosis. Cholangiopancreatography MRI 01/25/22 09:53 IMPRESSION: The gallbladder is filled with small gallstones. Mild left-sided intrahepatic biliary duct dilatation. Upper normal-size extrahepatic bile ducts. Small 3 mm filling defect in the distal common bile duct suggestive of a stone. Discharge Plan Discharge Patient Disposition: Xfer Acute Care Hospital Discharge Diagnosis: choledocolithiasis Referrals: Mary Phillips MD [Primary Care Provider] - 1 Week Discharge Medications: New levofloxacin in D5W 500 mg/100 mL Piggyback 500 mg IV Q24H Qty: 100 0RF Continued cholecalciferol (vitamin D3) 50 mcg (2,000 unit) capsule 50 mcg PO DAILY 90 Days Qty: 90 1RF esomeprazole magnesium [Nexium] 40 mg capsule,delayed release(DR/EC) 40 mg PO DAILY@0630 0RF famotidine 40 mg tablet 40 mg PO BEDTIME Qty: 30 3RF Discharge Orders: Discharge Order (Routine); Ordered 01/25/22 Ordered By: Karen Couch Activity on Discharge: As tolerated Stand Alone Forms: Patient Portal Discharge page Care Plan Goals: see below Health Concerns: choledocolithiasis Plan of Treatment: Attempted ERCP unsuccessful, plan to transfer to [facility] [place] Assessment: see discharge summary Discharge Date/Time: 01/25/22 20:46
--- NOTE | 2022-01-25 18:14 | PC.NURSE ---
pt brought up to floor from PACU at 1800. Pt to be transferred to [facility]. Room made available at 1810. Called to give report RN to RN at 1818. Currently waiting on a time from EMS.
[2022-01-25] MEDS: Lactated Ringers 1,000 ML 100 ML IVCONT (18:40)
[2022-01-25] MEDS: 0.9 % Sodium Chloride Flush 3 ML SYRINGE IVFLUSH (18:40)
--- NOTE | 2022-01-26 03:41 | OP_ITS ---
SURGEON: Agustín Hoffmann MD INDICATIONS: Common bile duct stone seen on MRI imaging. PREOPERATIVE DIAGNOSIS: POSTOPERATIVE DIAGNOSIS: PROCEDURE PERFORMED: ESTIMATED BLOOD LOSS: COMPLICATIONS: ANESTHESIA: ASSISTANTS: SPECIMENS: PROCEDURE: Attempted endoscopic retrograde cholangiopancreatography. MEDICATIONS: General anesthesia. DESCRIPTION OF PROCEDURE: History and physical performed, the risks and benefits of the procedure were explained to the patient. Informed consent was obtained. The patient was placed in a prone position with a wedge under the right shoulder. The Olympus therapeutic duodenoscope was introduced into the esophagus, stomach, and duodenum. Examination was performed and the scope was removed. She tolerated the procedure well and was taken to recovery area in stable condition. FINDINGS: There was blood in the oropharynx, possibly related to traumatic intubation. Limited examination of the esophagus, stomach, and duodenum was otherwise normal. The major papilla was identified. Multiple attempts at common duct cannulation with a guidewire and sphincterotome were unsuccessful. The guidewire did enter the pancreatic duct on several occasions based on fluoroscopic imaging. No contrast injection was obtained and after multiple attempts at cannulation, it was elected to terminate the procedure. IMPRESSION: Common bile duct stone. RECOMMENDATIONS: I will arrange for a repeat attempted ERCP at a tertiary care center. MD HANNAH Osborne/NINFAL / [phone]
== END 2022-01-25 20:46 | disposition short-term general hospital (02) ==
LOC: HO.ED 06:47 → HO.EDOVER 09:30 → HO.S3 14:37
PROVIDERS: Internal Medicine Gastroenterology; Admitting Provider Physician Assistant Medical; Emergency Provider Internal Medicine; PCP Internal Medicine; Visit Provider Physician Assistant Medical
PROC: 0FJB8ZZ Inspection of Hepatobiliary Duct, Via Natural or Artificial Opening Endoscopic (ICD-10-PCS; CPT 43260; principal; 2022-01-25 15:30)
DX: K80.70 Calculus of gallbladder and bile duct without cholecystitis without obstruction (principal); F33.9 Major depressive disorder, recurrent, unspecified; M79.7 Fibromyalgia; K21.9 Gastro-esophageal reflux disease without esophagitis; F41.9 Anxiety disorder, unspecified; F32.A Depression, unspecified; Z20.822 Contact with and (suspected) exposure to COVID-19; Z98.51 Tubal ligation status; Z79.899 Other long term (current) drug therapy
CPT/HCPCS: 36415; 74176; 74181; 80053; 80076; 81003; 83690; 85025; 87635; 96361; 96374; 96375; 99285; J0330; J1100; J1610; J1956; J2250; J2270; J2405; J2765; J3010; Q9967

== ENCOUNTER 2022-04-17 11:55 | Outpatient (REF) | payer OTHER, SELFPAY ==
--- NOTE | ~2022-04-17 | US_ITS ---
EXAMINATION: US VENOUS WITH DOPPLER UPPER EXTREMITY, LEFT CLINICAL INFORMATION: Left upper extremity pain. COMPARISON: None TECHNIQUE: Ultrasound of the upper extremity is performed using compression sonography and color and pulse Doppler flow with assessment of augmentation of flow. There is also imaging and Doppler assessment of the jugular and subclavian veins. Spectral analysis with color-flow imaging is performed. FINDINGS: Respiratory variation, normal compression, and augmented flow are noted throughout the upper extremity including the axillary, brachial, cubital, and radial and ulnar veins. There is normal flow in the internal jugular and subclavian veins. There is no visible deep or superficial thrombophlebitis. A tiny hypoechoic focus is seen in the deep soft tissues in the antecubital fossa measuring approximately 0.8 x 0.7 x 0.3 cm. Color Doppler showed no associated vascular flow. If the patient's symptoms progress, a followup ultrasound in 5 -7 days might be of value to exclude proximal propagation from a nonvisualized distal arm vein. US/US venous duplex UE LT IMPRESSION: 1. No evidence for deep venous thrombosis in the visualized veins of the left upper extremity. 2. Tiny hypoechoic focus in the in the soft tissues of the antecubital fossa. Given the location, this could represent a small left elbow joint effusion. Correlate with physical exam.
== END 2022-04-17 11:56 | disposition home or self-care (01) ==
LOC: HO.US 11:55
PROVIDERS: PCP Internal Medicine; Visit Provider Internal Medicine
DX: M79.602 Pain in left arm (principal)
CPT/HCPCS: 93971

== ENCOUNTER 2022-04-22 10:06 | Outpatient (REF) | payer OTHER, SELFPAY ==
--- NOTE | ~2022-04-22 | US_ITS ---
EXAMINATION: US LOWER EXTREMITY VENOUS (REFLUX EXAM), BILATERAL CLINICAL INDICATION: This is a 47-year-old female with venous insufficiency and varicose veins. Reflux. COMPARISON: None. TECHNIQUE: Color flow triplex imaging and compression Doppler was performed to evaluate both the deep and the superficial systems bilaterally. To evaluate the superficial system, the examination was performed in the upright position. Color-flow Doppler ultrasound and compression ultrasound were utilized. In addition, maneuvers were utilized to demonstrate reflux. FINDINGS: 1. DEEP VENOUS ULTRASOUND OF THE RIGHT LOWER EXTREMITY: Common Femoral Vein: Compressible, normal respiratory variation and augmented flow. Femoral vein: Compressible, normal color flow and augmentation. Popliteal Vein: Compressible, normal augmentation. Deep Reflux: There is no evidence of reflux in the deep system in either the common femoral vein or the popliteal vein. There is no evidence of a Dunn's cyst. 2. SUPERFICIAL ULTRASOUND WITH DOPPLER OF RIGHT LOWER EXTREMITY: GREAT SAPHENOUS VEIN: Saphenofemoral Junction: 0.5 cm. There is no reflux. Proximal thigh: 0.5 cm. The reflux time is 1696 ms. Mid Thigh: 0.4 cm. The reflux time is 2356 ms . Above Knee: 0.4 cm. The reflux time is 1648 ms. Below Knee: 0.4 cm. The reflux time is 3264 ms. Mid Calf: 0.3 cm. There is no reflux. Ankle: 0.2 cm. There is no reflux. GSV REFLUX: There is reflux in the proximal right great saphenous vein extending down below the knee. DUPLICATED GREAT SAPHENOUS VEIN: None SMALL SAPHENOUS VEIN: Proximal: 0.2 cm. The reflux time is 3308 ms. Distal: 0.2 cm. The reflux time is 2520 ms. SSV REFLUX: There is reflux beginning in the proximal small saphenous vein extending from the junction. VEIN OF GIACOMINI: None Imaged. PERFORATORS: None Imaged VARICOSITIES: There is a 0.4 cm proximal calf varicose vein with greater than 3 seconds of reflux. 3. DEEP VENOUS ULTRASOUND OF THE LEFT LOWER EXTREMITY: Common Femoral Vein: Compressible, normal respiratory variation and augmented flow. Femoral Vein: Compressible, normal color flow and augmentation. Popliteal Vein: Compressible, normal augmentation. Deep Reflux: There is no evidence of reflux in the deep system in either the common femoral vein or the popliteal vein. There is no evidence of a Dunn's cyst. 4. SUPERFICIAL ULTRASOUND WITH DOPPLER OF LEFT LOWER EXTREMITY: GREAT SAPHENOUS VEIN: Saphenofemoral Junction: 0.8 cm. There is no reflux. Proximal thigh: 0.5 cm. There is no reflux. Mid Thigh: 0.4 cm. The reflux time is 3256 ms. Above Knee: 0.4 cm. The reflux time is 3544 ms. Below Knee: 0.4 cm. The reflux time is 3540 ms. Mid Calf: 0.3 cm. There is no reflux. Ankle: 0.2 cm. There is no reflux. GSV REFLUX: There is reflux beginning in the mid thigh and extending down to the knee. DUPLICATED GREAT SAPHENOUS VEIN: None SMALL SAPHENOUS VEIN: Proximal: 0.2 cm Distal: 0.1 cm SSV REFLUX: No evidence of reflux. VEIN OF GIACOMINI: None Imaged. PERFORATORS: None Imaged VARICOSITIES: There are 0.4 cm proximal thigh varicose veins with 1604 ms of reflux. There are 0.4 cm proximal calf varicose veins with 3560 ms of reflux. US/US venous duplex LE BI IMPRESSION: 1. There is a patent right great saphenous vein with reflux beginning in the proximal thigh. 2. There is a patent right small saphenous vein with reflux beginning at the junction and the proximal calf. 3. There are right calf varicose veins with greater than 3 seconds of reflux. 4. There is a patent left great saphenous vein without reflux at the junction or proximal thigh. However, reflux begins in the mid thigh and extends down to the knee. 5. There is a patent left small saphenous vein without evidence of reflux. 6. There are varicose veins in the proximal thigh and proximal calf, respectively, with reflux present greater than 3 seconds.
== END 2022-04-22 10:07 | disposition home or self-care (01) ==
LOC: HO.US 10:06
PROVIDERS: PCP Internal Medicine; Visit Provider Surgery Vascular Surgery
DX: I83.12 Varicose veins of left lower extremity with inflammation (principal)
CPT/HCPCS: 93970

== ENCOUNTER 2022-04-25 07:40 | Outpatient (REF) | payer OTHER, SELFPAY ==
--- NOTE | ~2022-04-25 | US_ITS ---
EXAMINATION: US ABDOMEN COMPLETE CLINICAL INFORMATION: Unspecified abdominal pain. COMPARISON: CT and MR imaging of abdomen from 01/25/2022 TECHNIQUE: Real-time imaging of the abdominal viscera. FINDINGS: PANCREAS: Normal. ABDOMINAL AORTA: The proximal, mid, and distal segments are normal in caliber. INFERIOR VENA CAVA: Visualized portions are normal. LIVER: Liver has normal size and contour. Liver parenchyma is diffusely hyperechoic from steatosis. No focal lesions. No intrahepatic bile duct dilatation. GALLBLADDER: The patient has reportedly undergone cholecystectomy. Small amount of fluid is present in the gallbladder fossa; this occupies an area measuring approximately 1.4 x 4.9 cm (image 89/97). This appears to be too small for percutaneous drainage. It is uncertain whether a 0.5 cm echogenic focus in the region of the gallbladder fossa represents a dropped gallstone (image 93/97). COMMON BILE DUCT: Normal in caliber measuring 0.3 cm in diameter. KIDNEYS: The kidneys have normal cortical thickness and cortical echotexture. The right kidney is 10.3 cm and left kidney 10.4 cm in length. No nephrolithiasis or hydronephrosis. 0.8 cm simple cortical cyst of the lower pole the left kidney. No renal imaging follow-up recommended. SPLEEN: Normal. The spleen measures 11.1 cm in maximum dimension. FREE FLUID: No other areas of fluid are identified in the abdomen. US/US abdomen complete IMPRESSION: * Diffuse hepatic steatosis. * Small amount of fluid is present in the gallbladder fossa in this patient who has reportedly undergone cholecystectomy. Note that a small amount of fluid can normally be seen in the gallbladder fossa for several days after cholecystectomy. Recommend correlation with the date of surgery. Follow-up right upper quadrant ultrasound might be needed to ensure lack of any enlarging collection. * There might be a dropped gallstone in the gallbladder fossa (image 93/97).
== END 2022-04-25 07:41 | disposition home or self-care (01) ==
LOC: HO.US 07:40
PROVIDERS: Visit Provider Internal Medicine
DX: R10.9 Unspecified abdominal pain (principal); I83.12 Varicose veins of left lower extremity with inflammation
CPT/HCPCS: 76700; 99212

== ENCOUNTER 2022-04-30 09:34 | Outpatient (REF) | payer OTHER, SELFPAY ==
[2022-04-30 10:02] LABS: Hematocrit 45.2 % (37.0-47.0); Hemoglobin 14.2 g/dl (12.0-16.0); Mean Corpuscular HGB Conc 31.4 g/dl (31.0-35.0); Mean Corpuscular Hemoglobin 27.1 pg (27.0-33.0); Mean Corpuscular Volume 86.3 fL (80.0-98.0); Mean Platelet Volume 9.3 fL (9.4-12.3); Platelet Count 385 X10*3/uL (160-400); Red Blood Count 5.24 X10*6/uL (4.20-5.50); Red Cell Distribution Width 14.7 % (11.0-16.0); White Blood Count 9.8 X10*3/uL (4.8-10.8)
[2022-04-30 10:31] LABS: Alanine Aminotransferase 31 U/L (0-31); Albumin Level 4.5 g/dL (3.5-5.0); Alkaline Phosphatase 126 U/L (39-117); Amylase 116 U/L (28-100); Anion Gap 17 (12-20); Aspartate Amino Transferase 19 U/L (5-31); Bilirubin Direct 0.2 mg/dL (0.0-0.5); Bilirubin Total 0.6 mg/dL (0.0-1.0); Blood Urea Nitrogen 12 mg/dL (9-16); Calcium 9.4 mg/dL (8.4-10.2); Carbon Dioxide 21 mmol/L (22-29); Chloride 103 mmol/L (96-108); Estimated Glomerular Filt Rate > 60; Glucose Random 101 mg/dL (60-115); Lipase 20 U/L (8-78); Potassium 4.1 mmol/L (3.3-5.1); Sodium 137 mmol/L (135-145); Total Protein 8.2 g/dL (6.5-8.0)
[2022-04-30 10:33] LABS: Rheumatoid Factor < 15.0 IU/mL (<15.0)
[2022-04-30 10:51] LABS: HBS Num1 0.64 mIU/mL (0-7.99); HBc Num1 0.08 S/CO (0.00-0.79); HBsAGNum1 0.21 S/CO (0.00-0.99); Hepatitis B Core Antibody Nonreactive (Nonreactive); Hepatitis B Surface Antigen Negative (Negative); ~HepC Num1 0.06 S/CO (0.00-0.79); ~Hepatitis B Surface Antibody NONREACTIVE (Nonreactive); ~Hepatitis C Antibody Nonreactive (Nonreactive)
[2022-04-30 10:54] LABS: Ferritin 97 ng/mL (10-250); Thyroid Stimulating Hormone 1.42 uIU/mL (0.32-4.0)
[2022-04-30 10:55] LABS: Vitamin D 25-OH Total 51.4 ng/mL (>30)
[2022-05-01 08:18] LABS: ~Hepatitis A Antibody IgM Nonreactive (Nonreactive)
[2022-05-02 16:01] LABS: Anti Nuclear Antibody Screen NEGATIVE (NEGATIVE)
== END 2022-04-30 09:35 | disposition home or self-care (01) ==
LOC: HO.LAB 09:34
PROVIDERS: Nurse Practitioner Family; PCP Internal Medicine; Visit Provider Nurse Practitioner Family
DX: R10.9 Unspecified abdominal pain (principal); K21.9 Gastro-esophageal reflux disease without esophagitis; R79.89 Other specified abnormal findings of blood chemistry; R74.8 Abnormal levels of other serum enzymes; K80.50 Calculus of bile duct without cholangitis or cholecystitis without obstruction; K85.90 Acute pancreatitis without necrosis or infection, unspecified; L65.9 Nonscarring hair loss, unspecified; E55.9 Vitamin D deficiency, unspecified; R07.81 Pleurodynia
CPT/HCPCS: 36415; 80053; 80076; 82150; 82248; 82306; 82728; 83690; 84443; 85027; 86038; 86039; 86431; 86704; 86706; 86709; 86803; 87340

== ENCOUNTER 2022-04-30 14:52 | Outpatient (REF) | payer OTHER, SELFPAY ==
[2022-05-01 15:10] LABS: H Pylori Breath Test Negative (Negative)
== END 2022-04-30 14:53 | disposition home or self-care (01) ==
LOC: HO.LNP 14:52
PROVIDERS: Visit Provider Nurse Practitioner Family
DX: K80.50 Calculus of bile duct without cholangitis or cholecystitis without obstruction (principal); R10.11 Right upper quadrant pain; K21.9 Gastro-esophageal reflux disease without esophagitis; K58.2 Mixed irritable bowel syndrome
CPT/HCPCS: 83013; 99212

== ENCOUNTER 2022-05-16 13:21 | Outpatient (REF) | payer OTHER, SELFPAY ==
[2022-05-24 17:52] LABS: Pancreatic Elastase-1 >500 mcg/g
== END 2022-05-16 13:22 | disposition home or self-care (01) ==
LOC: HO.HMGCLDS 13:21
PROVIDERS: PCP Internal Medicine; Visit Provider Nurse Practitioner Family
DX: R10.9 Unspecified abdominal pain (principal)
CPT/HCPCS: 82656

== ENCOUNTER → 2022-05-21 09:46 | Outpatient (BNVA) | payer OTHER, SELFPAY | PROVIDERS: PCP Internal Medicine; Visit Provider Nurse Practitioner Family | DX: R10.11 Right upper quadrant pain (principal); R10.12 Left upper quadrant pain; R07.81 Pleurodynia; G58.8 Other specified mononeuropathies; K85.90 Acute pancreatitis without necrosis or infection, unspecified; K91.5 Postcholecystectomy syndrome | CPT/HCPCS: 99202 ==

== ENCOUNTER 2022-05-22 08:29 | Outpatient (REF) | payer OTHER, SELFPAY ==
--- NOTE | ~2022-05-22 | US_ITS ---
EXAMINATION: US ABDOMEN LIMITED CLINICAL INFORMATION: Follow-up gallbladder area. COMPARISON: Previous abdominal ultrasound 04/25/[address] and MRCP 01/25/2022 TECHNIQUE: Real-time imaging of the right upper quadrant abdominal viscera. FINDINGS: PANCREAS: Not well visualized due to bowel gas LIVER: Liver echotexture is increased. The liver is normal in size and contour. No focal liver lesion. No intrahepatic biliary duct dilatation. GALLBLADDER: The gallbladder has been removed. There is a small amount of fluid seen in the gallbladder fossa measuring 1 x 5 cm. There is a small echogenic focus measuring 0.5 cm. Appearance is similar to 04/25/2022 exam. COMMON BILE DUCT: Normal in caliber measuring 0.4 cm in diameter. RIGHT KIDNEY: Normal. No hydronephrosis. No renal calculi or focal parenchymal lesions. The kidney measures 10 cm in maximum dimension. FREE FLUID: None. US/US abdomen limited IMPRESSION: Small amount of fluid in the gallbladder fossa similar to 04/25/2022 ultrasound exam.
[2022-05-22 11:22] LABS: Hematocrit 44.3 % (37.0-47.0); Mean Corpuscular HGB Conc 31.6 g/dl (31.0-35.0); Mean Corpuscular Hemoglobin 27.1 pg (27.0-33.0); Mean Corpuscular Volume 85.7 fL (80.0-98.0); Mean Platelet Volume 10.2 fL (9.4-12.3); Platelet Count 409 X10*3/uL (160-400); Red Blood Count 5.17 X10*6/uL (4.20-5.50); Red Cell Distribution Width 14.3 % (11.0-16.0)
[2022-05-22 11:37] LABS: Amylase 113 U/L (28-100); Lipase 14 U/L (8-78)
== END 2022-05-22 08:30 | disposition home or self-care (01) ==
LOC: HO.HMGCX 08:29
PROVIDERS: PCP Internal Medicine; Visit Provider Nurse Practitioner Family
DX: R10.9 Unspecified abdominal pain (principal); K80.50 Calculus of bile duct without cholangitis or cholecystitis without obstruction; K85.90 Acute pancreatitis without necrosis or infection, unspecified; R79.89 Other specified abnormal findings of blood chemistry
CPT/HCPCS: 36415; 76705; 82150; 83690; 85027

== ENCOUNTER → 2022-05-24 12:31 | Outpatient (BNVA) | payer OTHER, SELFPAY | PROVIDERS: PCP Internal Medicine; Visit Provider Surgery Vascular Surgery | DX: I83.12 Varicose veins of left lower extremity with inflammation (principal) | CPT/HCPCS: 36482 ==

== ENCOUNTER 2022-05-28 11:26 | Outpatient (REF) | payer OTHER, SELFPAY ==
--- NOTE | ~2022-05-28 | US_ITS ---
EXAMINATION: US VENOUS ULTRASOUND WITH DOPPLER LOWER EXTREMITY, LEFT CLINICAL INFORMATION: Left leg pain status post left GSV VenaSeal. COMPARISON: 04/22/2022 TECHNIQUE: Ultrasound of the deep veins is performed from the hip to the calf with compression sonography and color and pulse Doppler assessment. Spectral analysis with color-flow imaging is performed. FINDINGS: There is normal venous compression and respiratory variation and augmented flow. The visualized common femoral vein, superficial femoral vein, profunda femoral vein, popliteal vein, and the trifurcation region shows no evidence of deep venous thrombosis. There is no significant popliteal fossa cyst. The left GSV is thrombosed with the exception of the distal 1.4 cm. If the patient's symptoms persist, followup ultrasound in 5 days 7 days might be of value to exclude proximal propagation from a non-visualized calf vein. US/US venous duplex LE LT IMPRESSION: No DVT demonstrated in the left lower extremity. Normal appearance of the left GSV status post VenaSeal ablation.
== END 2022-05-28 11:27 | disposition home or self-care (01) ==
LOC: HO.HMGCX 11:26
PROVIDERS: Visit Provider Surgery Vascular Surgery
DX: M79.605 Pain in left leg (principal)
CPT/HCPCS: 93971

== ENCOUNTER → 2022-05-29 08:47 | Outpatient (BNVA) | payer OTHER, SELFPAY | PROVIDERS: PCP Internal Medicine; Visit Provider Nurse Practitioner Family | DX: R10.12 Left upper quadrant pain (principal); K21.9 Gastro-esophageal reflux disease without esophagitis; K58.2 Mixed irritable bowel syndrome | CPT/HCPCS: 99212 ==

== ENCOUNTER → 2022-06-06 09:30 | Outpatient (BNVA) | payer OTHER, SELFPAY | PROVIDERS: PCP Internal Medicine; Visit Provider Surgery Vascular Surgery | DX: I83.11 Varicose veins of right lower extremity with inflammation (principal) | CPT/HCPCS: 99212 ==

== ENCOUNTER → 2022-06-26 12:15 | Outpatient (BNVA) | payer OTHER, SELFPAY | PROVIDERS: PCP Internal Medicine; Visit Provider Nurse Practitioner Family | DX: R10.12 Left upper quadrant pain (principal); K21.9 Gastro-esophageal reflux disease without esophagitis | CPT/HCPCS: 99212 ==

== ENCOUNTER → 2022-06-28 09:55 | Outpatient (BNVA) | payer OTHER, SELFPAY | PROVIDERS: PCP Internal Medicine; Visit Provider Surgery Vascular Surgery | DX: I83.11 Varicose veins of right lower extremity with inflammation (principal) | CPT/HCPCS: 36482 ==

== ENCOUNTER 2022-07-02 08:16 | Outpatient (REF) | payer OTHER, SELFPAY ==
--- NOTE | ~2022-07-02 | US_ITS ---
EXAMINATION: TRIPLEX SCANNING OF RIGHT LOWER EXTREMITY; SUPERFICIAL ULTRASOUND WITH DOPPLER OF RIGHT LOWER EXTREMITY CLINICAL INFORMATION: Status post Venaseal of the right great saphenous vein COMPARISON: 04/22/2022. TECHNIQUE: Color flow triplex imaging and compression Doppler were performed as well as superficial ultrasound with Doppler. FINDINGS: RIGHT LOWER EXTREMITY DEEP VENOUS SYSTEM: Respiratory variation, normal compression and augmented flow are noted throughout the lower extremity. The visualized common femoral vein, femoral vein, profunda femoral vein, popliteal vein and the calf veins show no evidence of deep venous thrombosis. There is no evidence of Dunn's cyst. SUPERFICIAL VENOUS SYSTEM: The great saphenous vein is occluded from the access site to 2.6 cm before the saphenofemoral junction. There is no extension of thrombus into the deep system. US/US venous duplex LE RT IMPRESSION: 1. No evidence of DVT. 2. Excellent appearance status post ablation of the right great saphenous vein.
== END 2022-07-02 08:17 | disposition home or self-care (01) ==
LOC: HO.US 08:16
PROVIDERS: Visit Provider Surgery Vascular Surgery
DX: M79.604 Pain in right leg (principal)
CPT/HCPCS: 93971

== ENCOUNTER 2022-07-04 12:50 | Day surgery (SDC) | payer OTHER, SELFPAY ==
--- NOTE | 2022-07-03 08:57 | HO.ANESPROP2 ---
Documented by User: Tara Travis NP 07/03/22 09:02 HPI - Anesthesia Eval Consult details Narrative: 47yo F for Upper Endoscopy and Colonoscopy s/p ERCP 01/2022 with GA-ETT 7 PMFSH Active Problems Active Problems: All Active Problems (Updated 06/08/22 @ 16:59 by Soraida De León [facility]) Varicose veins of right lower extremity with inflammation (Acute) Post-cholecystectomy syndrome (Acute) Intercostal neuritis (Acute) Hair loss (Acute) Abdominal pain (Acute) Left arm pain (Acute) Chest pain (Acute) Acute pancreatitis (Acute) Choledocholithiasis (Acute) Biliary colic (Acute) Elevated liver function tests (Acute) Varicose veins of left lower extremity with inflammation (Acute) Rib pain on right side (Acute) Bilateral hand pain (Acute) Right knee pain (Acute) Anxiety and depression (Acute) Cough (Acute) Right foot pain (Acute) Left foot pain (Acute) Elevated platelet count (Acute) CATHY (generalized anxiety disorder) (Acute) Moderate recurrent major depression (Acute) Chronic GERD (Acute) Bilateral knee pain (Acute) Fibromyalgia (Acute) Left rotator cuff tear (Acute) Subacromial bursitis of left shoulder joint (Acute) Screening for hypothyroidism (Acute) Screening for diabetes mellitus (DM) (Acute) Pain in left shoulder (Acute) Peripheral vascular disease (Acute) Chest discomfort (Acute) Obesity (BMI 30.0-34.9) (Acute) Right knee sprain (Acute) Bunion, right (Acute) Precordial chest pain (Acute) Heavy menstrual bleeding (Acute) Irregular menses (Acute) Encounter for annual routine gynecological examination (Acute) Screening for cervical cancer (Acute) Chest pain (Acute) Hx of cervical cancer (Acute) Vitamin D deficiency (Acute) Hand pain, right (Acute) Fibromyalgia (Acute) Thyroid nodule (Acute) Past Medical History Medical History Anxiety and depression Cervical cancer Chest pain Chronic GERD Cough Depression Elevated platelet count FH: breast cancer in first degree relative Fibromyalgia CATHY (generalized anxiety disorder) GERD (gastroesophageal reflux disease) Hand pain, right Left foot pain Moderate recurrent major depression Obesity (BMI 30.0-34.9) PCOS (polycystic ovarian syndrome) Right foot pain Thyroid nodule Vitamin D deficiency Family History Family History Mother Diabetes Lung cancer Father Pancreatitis Sister History of breast cancer Ovarian cancer Sister Breast cancer, Onset Age: 50 Sister Breast cancer, Onset Age: 50 Sister Thyroid cancer Family history of problems with anesthesia: No Surgical History Surgical History H/O cone biopsy of cervix H/O tubal ligation Hx of cholecystectomy Previous back surgery History of Problems with Anesthesia: Yes (Slow awakening ) Social History Social History Housing: House Alcohol intake: never Patient Tobacco Use Status: Never used Tobacco e-Cigarette/Vaping Use: Never Used Second Hand Smoke Exposure: No Use of substances other than those prescribed or required for medical reasons: No Are you DNR?: No Advance Directives: No Advance Directives Information Provided: Yes service: No Current occupational status: employed Current occupation: [employer] Current occupational exposures/hazards: No Cognitive needs: No Hearing needs: No Vision needs: No Meds Allergies Allergy/AdvReac Type Severity Reaction Status Date / Time No Known Allergies Allergy Verified 06/28/22 09:58 Exam Exam Date and Time: July 03, 2022 0857 Pertinent Lab Results Pertinent Lab Results: Laboratory Tests 04/30/22 05/22/22 09:52 09:10 WBC 8.0 Hgb 14.0 Hct 44.3 Plt Count 409 H Sodium 137 Potassium 4.1 Chloride 103 Carbon Dioxide 21 L BUN 12 Creatinine 0.83 Assessment and Plan Assessment Anesthesia Assessment: Chart Reviewed Final Anesthetic Review Family History of Problems with Anesthesia: No History of Problems with Anesthesia: Yes (Slow awakening ) Documented by User: Sherry Duran MD 07/04/22 14:50 PMFSH Past Medical History Medical History Anxiety and depression Cervical cancer Chest pain Chronic GERD Cough Depression Elevated platelet count FH: breast cancer in first degree relative Fibromyalgia CATHY (generalized anxiety disorder) GERD (gastroesophageal reflux disease) Hand pain, right Left foot pain Moderate recurrent major depression Obesity (BMI 30.0-34.9) PCOS (polycystic ovarian syndrome) Right foot pain Thyroid nodule Vitamin D deficiency Functional capacity: independent ambulation Patient : No Family History Family History Mother Diabetes Lung cancer Father Pancreatitis Sister History of breast cancer Ovarian cancer Sister Breast cancer, Onset Age: 50 Sister Breast cancer, Onset Age: 50 Sister Thyroid cancer Surgical History Surgical History H/O cone biopsy of cervix H/O tubal ligation Hx of cholecystectomy Previous back surgery History of Problems with Anesthesia: No (Slow awakening ) Social History Social History Housing: House Alcohol intake: never Patient Tobacco Use Status: Never used Tobacco e-Cigarette/Vaping Use: Never Used Second Hand Smoke Exposure: No Use of substances other than those prescribed or required for medical reasons: No Are you DNR?: No Advance Directives: No Advance Directives Information Provided: Yes service: No Current occupational status: employed Current occupation: [employer] Current occupational exposures/hazards: No Cognitive needs: No Hearing needs: No Vision needs: No Meds Allergies Allergy/AdvReac Type Severity Reaction Status Date / Time No Known Allergies Allergy Verified 06/28/22 09:58 Exam Airway Mallampati Class: III TM Dist: >3cm Neck ROM: Full Heart: RRR Lungs: CTA Assessment and Plan Final Anesthetic Review History of Problems with Anesthesia: No (Slow awakening ) NPO: Yes ASA Class: II Final Preanesthetic Review: No Changes in Pt Med Stat, Meds/Allgs Chart Reviewed, Consent Obtained/Reviewed and Anes Risks/Benef Reviewed Patient Risk: Low Procedure Risk: Low Anesthetic Plan Anesthetic Plan: MAC: Disposition: Standard PACU
[2022-07-04 13:12] VITALS: BMI 26.2
[2022-07-04] MEDS: Lactated Ringers 1,000 ML 100 ML IVCONT (13:40)
--- NOTE | 2022-07-04 14:23 | MHC.SHP ---
Pre-Procedural Eval Section A Date of Service: 07/04/22 The patient is an INPATIENT: No Changes since office visit: Yes Patient answered all questions The History & Physical has been completed within 30 days and I have reviewed it.: Yes Section B Chief Complaint: screening, reflux Allergies: Allergies Allergy/AdvReac Type Severity Reaction Status Date / Time No Known Allergies Allergy Verified 06/28/22 09:58 Plan I have reviewed the history and physical and performed a pertinent physical examination on my patient. No changes have occurred unless specified.
--- NOTE | 2022-07-04 14:24 | P.OP_ITS ---
Operative Note Operative Note Date of Service: 07/04/22 Narrative: Procedure: Esophagogastroduodenoscopy and colonoscopy Endoscopist: Glenis Nava MD Indication: Persistent GERD, CRC screening Equipment: GIF-H190 and PCF-190L Anesthesia Provider: Dr Sherry Lane Anesthesia Type: MAC EGD Procedure:?? The procedure, indications, preparation and potential complications were reviewed with the patient, who indicated understanding and gave written informed consent to proceed. A physical exam was performed. []The patient was electively intubated for airway protection the anesthesiologist. The endoscope was introduced through the mouth, and advanced to the second part of duodenum. The mucosa was carefully examined on slow withdrawal of the endoscope. The patient tolerated the procedure well. There were no immediate complications.? ? EGD Findings:? * Esophagus:? Slight trachealization was noted. Grade C esophagitis was noted in the lower 1/3rd of esophagus. The Z line was at 35 cm. Middle and proximal esophagus forceps biopsies were obtained to rule out eosinophilic esophagitis. * Stomach:? Normal mucosa was noted in the stomach. Random gastric biopsies were taken to rule out H Pylori infection. A small sized hiatal hernia was noted on retroflexion. * Duodenum:? Normal mucosa was noted in the whole of the examined duodenum. Biopsies were taken from duodenal bulb and second portion of the duodenum to rule out celiac sprue. ? Colonoscopy procedure: The patient was then turned for colonoscopy. A digital rectal exam was performed which was normal. The colonoscope was then inserted through the anus and advanced through the colon to the cecum at 80 cm. Mucosa was carefully examined under high definition white light as the instrument was slowly withdrawn in a retrograde panoramic fashion. Retroflexion was performed in rectum. The procedure was not difficult. There were no immediate obvious complications. The quality of the prep was BBPS: 2+2+3 = adequate. Withdrawal time 16 minutes. Limitations: No limitations. Colonoscopy findings: Mucosa: Adherent liquid stool was noted throughout the R side of the colon and transverse colon which could not be completely washed despite extensive water irrigation. Mucosa otherwise appeared normal to cecum to the extent visualised. Protruding lesions: * Small internal hemorrhoids without stigmata of recent bleeding. EGD Impression:? * Grade C esophagitis * Esophageal rings noted (biopsy) * Hiatal hernia * Normal stomach (biopsy) * Normal duodenum (biopsy Colonoscopy Impression: * Fair prep. * Internal hemorrhoids Recommendations:?? * Follow biopsy results. Our office will call or send a letter with results within 7-10 days. * Increase PPI to 40mg BID for at least 8 weeks * A repeat EGD will be set up in 8-10 weeks to assess for esophagitis healing and underlying mucosa. * If H pylori +, patient will be prescribed eradication therapy followed by test of cure. * Avoid NSAIDs. * Repeat colonoscopy in 5 years due to fair prep. Above has been reviewed with the patient. Relevant educational hand outs were provided at discharge.
[2022-07-04 15:18] VITALS: BP 107/75; PULSE 60; RESP 16; TEMP 36.4; O2SAT 100
--- NOTE | 2022-07-04 15:32 | HO.POSTANES ---
Post Anesthesia Evaluation Post Anesthesia Evaluation Vital Signs: Vital Signs Temp Pulse Resp BP Pulse Ox O2 Del Method 07/04/22 15:18 97.6 F 60 16 107/75 100 Room Air Anesthesia: Monitored Mental Status: Awake Pain Control: Satisfactory Nausea/Vomiting: None Hydration: Adequate Anesthesia-Related Issues: No Anes. Related Issues
[2022-07-04 15:33] VITALS: BP 116/77; PULSE 53; RESP 16; TEMP 36.4; O2SAT 98
[2022-07-04 15:48] VITALS: BP 118/69; PULSE 52; RESP 16; TEMP 36.4; O2SAT 100
== END 2022-07-04 16:04 | disposition home or self-care (01) ==
PROVIDERS: PCP Internal Medicine; Visit Provider Internal Medicine
PROC: (CPT 45378; principal; 2022-07-04 14:20)
DX: Z12.11 Encounter for screening for malignant neoplasm of colon (principal); K64.8 Other hemorrhoids; K22.2 Esophageal obstruction; K21.9 Gastro-esophageal reflux disease without esophagitis; K20.80 Other esophagitis without bleeding; K22.89 Other specified disease of esophagus; K44.9 Diaphragmatic hernia without obstruction or gangrene; M79.7 Fibromyalgia; F33.1 Major depressive disorder, recurrent, moderate; E28.2 Polycystic ovarian syndrome; Z79.899 Other long term (current) drug therapy; Z85.41 Personal history of malignant neoplasm of cervix uteri; Z90.49 Acquired absence of other specified parts of digestive tract; Z98.51 Tubal ligation status
CPT/HCPCS: 45378; 43239; 88305; 88342

== ENCOUNTER → 2022-07-11 09:45 | Outpatient (BNVA) | payer OTHER, SELFPAY | PROVIDERS: PCP Internal Medicine; Visit Provider Surgery Vascular Surgery | DX: I83.11 Varicose veins of right lower extremity with inflammation (principal); I83.12 Varicose veins of left lower extremity with inflammation | CPT/HCPCS: 99212 ==

== ENCOUNTER 2022-07-25 19:45 | Emergency (ER) | payer OTHER, SELFPAY ==
[2022-07-25 20:08] VITALS: BP 129/86; PULSE 75; RESP 16; TEMP 36.8; O2SAT 99; BMI 26.2
[2022-07-25 20:34] LABS: MANUAL DIFF FLAG NO
[2022-07-25 20:38] LABS: Basophils Absolute Auto 0.1 X10*3/uL (0.0-0.2); Basophils Percent Auto 0.5 % (0-2); Eosinophils Absolute Auto 0.1 X10*3/uL (0.0-0.4); Eosinophils Percent Auto 1.1 % (0-4); Hematocrit 40.7 % (37.0-47.0); Hemoglobin 12.9 g/dl (12.0-16.0); Imm Gran Abs Auto 0.04 X10*3/uL (0.00-0.03); Imm Gran Pct Auto 0.4 % (0.0-0.4); Lymphocytes Absolute Auto 2.4 X10*3/uL (1.2-4.9); Lymphocytes Percent Auto 21.8 % (20-40); Mean Corpuscular HGB Conc 31.7 g/dl (31.0-35.0); Mean Corpuscular Hemoglobin 27.4 pg (27.0-33.0); Mean Corpuscular Volume 86.4 fL (80.0-98.0); Mean Platelet Volume 9.3 fL (9.4-12.3); Monocytes Absolute Auto 0.6 X10*3/uL (0.1-1.2); Monocytes Percent Auto 5.2 % (2-11); Neutrophils Absolute Auto 7.8 x10*3/uL (2.0-8.3); Platelet Count 386 X10*3/uL (160-400); Red Blood Count 4.71 X10*6/uL (4.20-5.50); Red Cell Distribution Width 13.6 % (11.0-16.0); White Blood Count 10.9 X10*3/uL (4.8-10.8)
[2022-07-25 20:51] LABS: Alanine Aminotransferase 43 U/L (0-31); Albumin Level 4.3 g/dL (3.5-5.0); Alkaline Phosphatase 126 U/L (39-117); Anion Gap 18 (12-20); Aspartate Amino Transferase 44 U/L (5-31); Bilirubin Total 0.3 mg/dL (0.0-1.0); Blood Urea Nitrogen 12 mg/dL (9-16); Calcium 9.3 mg/dL (8.4-10.2); Carbon Dioxide 23 mmol/L (22-29); Chloride 103 mmol/L (96-108); Creatinine Clr Calc Pharmacy 62.1; Estimated Glomerular Filt Rate 60; Glucose Random 135 mg/dL (60-115); Lipase 22 U/L (8-78); Potassium 3.8 mmol/L (3.3-5.1); Sodium 140 mmol/L (135-145); Total Protein 7.5 g/dL (6.5-8.0)
== END 2022-07-25 22:21 | disposition left against medical advice (07) ==
LOC: HO.ED 22:14
PROVIDERS: Emergency Provider Emergency Medicine; PCP Internal Medicine
DX: R10.9 Unspecified abdominal pain (principal); R11.0 Nausea; K91.5 Postcholecystectomy syndrome; Z90.49 Acquired absence of other specified parts of digestive tract
CPT/HCPCS: 36415; 80053; 83690; 85025; 99281; 99283

== ENCOUNTER 2022-08-06 07:20 | Outpatient (REF) | payer OTHER, SELFPAY ==
--- NOTE | ~2022-08-06 | MR_ITS ---
EXAMINATION: MR ABDOMEN WITHOUT CONTRAST CLINICAL INFORMATION: Abdominal pain. COMPARISON: Previous ultrasound of the abdomen most recent April [address] and MR of the abdomen January 2022 TECHNIQUE: MR abdomen is performed without gadolinium contrast. MRCP sequences were also performed. FINDINGS: LUNG BASES: The visualized lung bases are unremarkable. LIVER, GALLBLADDER, AND BILIARY TREE: The liver is normal in size and shape. There is mild fatty infiltration. No focal liver lesion. The gallbladder has been removed. No intra or extrahepatic biliary duct dilatation. The common bile duct measures 5 mm. No common bile duct stone. No fluid collection in the gallbladder fossa. PANCREAS: Unremarkable. SPLEEN: Unremarkable. ADRENAL GLANDS: Unremarkable. KIDNEYS AND URETERS: There are 2 small bright T2 lesions in the left kidney that are stable and probably represent small cysts. The kidneys are otherwise unremarkable. GASTROINTESTINAL TRACT: No bowel obstruction. No ascites or fluid collection. ABDOMINAL WALL: Small umbilical hernia containing fat. LYMPH NODES: No lymphadenopathy. VASCULAR: Unremarkable. OSSEOUS STRUCTURES: Marrow signal normal. MR/MR MRCP IMPRESSION: Post cholecystectomy. No biliary duct dilatation or common bile duct stone seen.
== END 2022-08-06 07:21 | disposition home or self-care (01) ==
LOC: HO.MRI 07:20
PROVIDERS: Visit Provider Nurse Practitioner Family
DX: R10.9 Unspecified abdominal pain (principal); R74.01 Elevation of levels of liver transaminase levels; K80.50 Calculus of bile duct without cholangitis or cholecystitis without obstruction; K85.90 Acute pancreatitis without necrosis or infection, unspecified
CPT/HCPCS: 74181

== ENCOUNTER 2022-08-08 12:27 | Day surgery (SDC) | payer OTHER, SELFPAY ==
--- NOTE | 2022-08-07 13:11 | HO.ANESPROP2 ---
Documented by User: Tara Travis NP 08/07/22 13:13 HPI - Anesthesia Eval Consult details Narrative: 47yo F for Upper Endoscopy s/p EGD and [place] 06/2022 with MAC [facility] Active Problems Active Problems: All Active Problems (Updated 07/11/22 @ 16:10 by Garland Russell MD) Varicose veins of right lower extremity with inflammation (Acute) Post-cholecystectomy syndrome (Acute) Intercostal neuritis (Acute) Hair loss (Acute) Abdominal pain (Acute) Left arm pain (Acute) Chest pain (Acute) Acute pancreatitis (Acute) Choledocholithiasis (Acute) Biliary colic (Acute) Elevated liver function tests (Acute) Varicose veins of left lower extremity with inflammation (Acute) Rib pain on right side (Acute) Bilateral hand pain (Acute) Right knee pain (Acute) Anxiety and depression (Acute) Cough (Acute) Right foot pain (Acute) Left foot pain (Acute) Elevated platelet count (Acute) CATHY (generalized anxiety disorder) (Acute) Moderate recurrent major depression (Acute) Chronic GERD (Acute) Bilateral knee pain (Acute) Fibromyalgia (Acute) Left rotator cuff tear (Acute) Subacromial bursitis of left shoulder joint (Acute) Screening for hypothyroidism (Acute) Screening for diabetes mellitus (DM) (Acute) Pain in left shoulder (Acute) Peripheral vascular disease (Acute) Chest discomfort (Acute) Obesity (BMI 30.0-34.9) (Acute) Right knee sprain (Acute) Bunion, right (Acute) Precordial chest pain (Acute) Heavy menstrual bleeding (Acute) Irregular menses (Acute) Encounter for annual routine gynecological examination (Acute) Screening for cervical cancer (Acute) Chest pain (Acute) Hx of cervical cancer (Acute) Vitamin D deficiency (Acute) Hand pain, right (Acute) Fibromyalgia (Acute) Thyroid nodule (Acute) Past Medical History Medical History Anxiety and depression Cervical cancer Chest pain Chronic GERD Cough Depression Elevated platelet count FH: breast cancer in first degree relative Fibromyalgia CATHY (generalized anxiety disorder) GERD (gastroesophageal reflux disease) Hand pain, right Left foot pain Moderate recurrent major depression Obesity (BMI 30.0-34.9) PCOS (polycystic ovarian syndrome) Right foot pain Thyroid nodule Vitamin D deficiency Family History Family History Mother Diabetes Lung cancer Father Pancreatitis Sister History of breast cancer Ovarian cancer Sister Breast cancer, Onset Age: 50 Sister Breast cancer, Onset Age: 50 Sister Thyroid cancer Family history of problems with anesthesia: No Surgical History Surgical History H/O cone biopsy of cervix H/O tubal ligation History of esophagogastroduodenoscopy (EGD) Hx of cholecystectomy Hx of colonoscopy Previous back surgery Status post ablation of incompetent vein using laser History of Problems with Anesthesia: No (Slow awakening ) Social History Social History Housing: House Alcohol intake: never Patient Tobacco Use Status: Never used Tobacco e-Cigarette/Vaping Use: Never Used Second Hand Smoke Exposure: No Use of substances other than those prescribed or required for medical reasons: No Are you DNR?: No Advance Directives: No Advance Directives Information Provided: Yes Advance Directives on File: No service: No Current occupational status: employed Current occupation: [employer] Current occupational exposures/hazards: No Cognitive needs: No Hearing needs: No Vision needs: No Meds Allergies Allergy/AdvReac Type Severity Reaction Status Date / Time No Known Allergies Allergy Verified 08/06/22 15:27 Home Medications Medication Instructions Recorded Confirmed Last Taken Type ujkxat-jmnqajug-bkxhxax 2 cap PO BID 07/11/22 08/06/22 08/08/22 History 12,000-38,000-60,000 unit capsule,delayed rel (Creon) Exam Exam Date and Time: August 07, 2022 1311 Pertinent Lab Results Pertinent Lab Results: Laboratory Tests 07/25/22 07/25/22 20:30 20:30 WBC 10.9 H Hgb 12.9 Hct 40.7 Plt Count 386 Sodium 140 Potassium 3.8 Chloride 103 Carbon Dioxide 23 BUN 12 Creatinine 1.00 Assessment and Plan Assessment Anesthesia Assessment: Chart Reviewed Final Anesthetic Review Family History of Problems with Anesthesia: No History of Problems with Anesthesia: No (Slow awakening ) Documented by User: Nata Steve MD 08/08/22 15:22 [facility] Active Problems Active Problems: All Active Problems (Updated 07/11/22 @ 16:10 by Garland Russell MD) Varicose veins of right lower extremity with inflammation (Acute) Post-cholecystectomy syndrome (Acute) Intercostal neuritis (Acute) Hair loss (Acute) Abdominal pain (Acute) Left arm pain (Acute) Chest pain (Acute) Acute pancreatitis (Acute) Choledocholithiasis (Acute) Biliary colic (Acute) Elevated liver function tests (Acute) Varicose veins of left lower extremity with inflammation (Acute) Rib pain on right side (Acute) Bilateral hand pain (Acute) Right knee pain (Acute) Anxiety and depression (Acute) Cough (Acute) Right foot pain (Acute) Left foot pain (Acute) Elevated platelet count (Acute) CATHY (generalized anxiety disorder) (Acute) Moderate recurrent major depression (Acute) Chronic GERD (Acute) Bilateral knee pain (Acute) Fibromyalgia (Acute) Left rotator cuff tear (Acute) Subacromial bursitis of left shoulder joint (Acute) Screening for hypothyroidism (Acute) Screening for diabetes mellitus (DM) (Acute) Pain in left shoulder (Acute) Peripheral vascular disease (Acute) Chest discomfort (Acute) Obesity (BMI 30.0-34.9) (Acute) Right knee sprain (Acute)i Bunion, right (Acute) Precordial chest pain (Acute) Heavy menstrual bleeding (Acute) Irregular menses (Acute) Encounter for annual routine gynecological examination (Acute) Screening for cervical cancer (Acute) Chest pain (Acute) Hx of cervical cancer (Acute) Vitamin D deficiency (Acute) Hand pain, right (Acute) Fibromyalgia (Acute) Thyroid nodule (Acute) Past Medical History Medical History Anxiety and depression Cervical cancer Chest pain Chronic GERD Cough Depression Elevated platelet count FH: breast cancer in first degree relative Fibromyalgia CATHY (generalized anxiety disorder) GERD (gastroesophageal reflux disease) Hand pain, right Left foot pain Moderate recurrent major depression Obesity (BMI 30.0-34.9) PCOS (polycystic ovarian syndrome) Right foot pain Thyroid nodule Vitamin D deficiency Family History Family History Mother Diabetes Lung cancer Father Pancreatitis Sister History of breast cancer Ovarian cancer Sister Breast cancer, Onset Age: 50 Sister Breast cancer, Onset Age: 50 Sister Thyroid cancer Surgical History Surgical History H/O cone biopsy of cervix H/O tubal ligation History of esophagogastroduodenoscopy (EGD) Hx of cholecystectomy Hx of colonoscopy Previous back surgery Status post ablation of incompetent vein using laser Social History Social History Housing: House Alcohol intake: never Patient Tobacco Use Status: Never used Tobacco e-Cigarette/Vaping Use: Never Used Second Hand Smoke Exposure: No Use of substances other than those prescribed or required for medical reasons: No Are you DNR?: No Advance Directives: No Advance Directives Information Provided: Yes Advance Directives on File: No service: No Current occupational status: employed Current occupation: [employer] Current occupational exposures/hazards: No Cognitive needs: No Hearing needs: No Vision needs: No Meds Allergies Allergy/AdvReac Type Severity Reaction Status Date / Time No Known Allergies Allergy Verified 08/06/22 15:27 Home Medications Medication Instructions Recorded Confirmed Last Taken Type zewmmz-bfjeswxr-geopjsk 2 cap PO BID 07/11/22 08/06/22 08/08/22 History 12,000-38,000-60,000 unit capsule,delayed rel (Creon) Exam Airway Mallampati Class: II TM Dist: >3cm Neck ROM: Full Loose/Missing/Broken Teeth: No Heart: RRR Lungs: CTA Assessment and Plan Assessment Anesthesia Assessment: Anesthesia Plan Discussed Final Anesthetic Review NPO: Yes ASA Class: II Final Preanesthetic Review: Meds/Allgs Chart Reviewed, Consent Obtained/Reviewed and Anes Risks/Benef Reviewed Patient Risk: Low Procedure Risk: Intermediate Anesthetic Plan Anesthetic Plan: MAC: Disposition: Standard PACU
[2022-08-08 13:28] VITALS: BMI 24.3
[2022-08-08 13:35] VITALS: BP 131/80; PULSE 86; RESP 16; TEMP 36.1; O2SAT 98
[2022-08-08] MEDS: Lactated Ringers 1,000 ML 100 ML IVCONT (13:47)
[2022-08-08 15:58] LABS: Alanine Aminotransferase 156 U/L (0-31); Albumin Level 3.7 g/dL (3.5-5.0); Alkaline Phosphatase 154 U/L (39-117); Aspartate Amino Transferase 31 U/L (5-31); Bilirubin Direct 0.2 mg/dL (0.0-0.5); Bilirubin Total 0.6 mg/dL (0.0-1.0); Total Protein 6.6 g/dL (6.5-8.0)
--- NOTE | 2022-08-08 16:53 | MHC.SHP ---
Pre-Procedural Eval Section A Date of Service: 08/08/22 Section B Chief Complaint: Esophagitis, unspecified without bleeding Details of Present Illness: 47 y.o F with hx of severe esophagitis who is here for follow up EGD to assess for healing. Present Medications: see Short Stay Collaborative assessment Medical History: No relevant PMH ( Anxiety and depression Cervical cancer Chest pain Chronic GERD Cough Depression FH: breast cancer in first degree relative Fibromyalgia CATHY (generalized anxiety disorder) GERD (gastroesophageal reflux disease) Hand pain, right Left foot pain major depressi) Allergies: Allergies Allergy/AdvReac Type Severity Reaction Status Date / Time No Known Allergies Allergy Verified 08/06/22 15:27 Review of Systems Review of Systems Comment: 10 point ROS negative Exam Exam Comment: Gen appear: No acute distress, well nourished HEENT: no icterus, no cervical lymphadenopathy Chest: No overt resp distress Abd: soft, nontender, nondistended Psych: Stable affect, answering questions appropriately Neuro: A/Ox3 noted to move all extremities spontaneously Ext: no peripheral edema Plan I have reviewed the history and physical and performed a pertinent physical examination on my patient. No changes have occurred unless specified.
[2022-08-08 16:56] VITALS: BP 107/67; PULSE 85; RESP 14; TEMP 37.2; O2SAT 97
--- NOTE | 2022-08-08 16:56 | P.OP_ITS ---
Operative Note Operative Note Date of Service: 08/08/22 Narrative: Procedure: Esophagogastroduodenoscopy Endoscopist: Glenis Nava MD Indication: History of esophagitis Anesthesia Provider: Dr Scarlett Bustamante Anesthesia Type: MAC ?? EGD Procedure:?? The procedure, indications, preparation and potential complications were reviewed with the patient, who indicated understanding and gave written informed consent to proceed. A physical exam was performed. The endoscope was introduced through the mouth, and advanced to the second part of duodenum. The mucosa was carefully examined on slow withdrawal of the endoscope. The patient tolerated the procedure well. There were no immediate complications.? ? EGD Findings:? * Esophagus: Normal mucosa noted in the entire esophagus. The Z line was at 31cm. The diaphragmatic pinch was at 36cm. * Stomach:?Normal mucosa was noted in the stomach. * Duodenum:?Normal mucosa was noted in the whole of the examined duodenum. ? EGD Impressions:? * Normal esophagus * Normal stomach * Normal duodenum ?? Recommendations:?? * Healed esophagitis. No underlying mucosal abnormality noted on exam today. * Avoid NSAIDs. * Follow up in office as scheduled.
[2022-08-08 17:11] VITALS: BP 119/78; PULSE 73; RESP 15; O2SAT 100
[2022-08-08 17:26] VITALS: BP 124/78; PULSE 69; RESP 18; TEMP 37.4; O2SAT 99
== END 2022-08-08 18:30 | disposition home or self-care (01) ==
PROVIDERS: PCP Internal Medicine; Visit Provider Internal Medicine
PROC: 0DJ08ZZ Inspection of Upper Intestinal Tract, Via Natural or Artificial Opening Endoscopic (ICD-10-PCS; CPT 43235; principal; 2022-08-08 14:50)
DX: K20.90 Esophagitis, unspecified without bleeding (principal); K21.9 Gastro-esophageal reflux disease without esophagitis; M79.7 Fibromyalgia; F32.9 Major depressive disorder, single episode, unspecified; F41.1 Generalized anxiety disorder; Z79.899 Other long term (current) drug therapy; Z85.41 Personal history of malignant neoplasm of cervix uteri; Z90.49 Acquired absence of other specified parts of digestive tract
CPT/HCPCS: 43235; 36415; 80076

== ENCOUNTER 2022-08-21 09:33 | Outpatient (REF) | payer OTHER, SELFPAY ==
[2022-08-21 10:27] LABS: Estimated Average Glucose 97 mg/dL
[2022-08-21 10:31] LABS: INTERNATIONAL NORM RATIO 0.9 (0.9-1.1); Prothrombin Time 10.5 SEC (10.0-13.1)
[2022-08-21 11:11] LABS: Alanine Aminotransferase 39 U/L (0-31); Albumin Level 4.4 g/dL (3.5-5.0); Alkaline Phosphatase 151 U/L (39-117); Aspartate Amino Transferase 19 U/L (5-31); Bilirubin Direct 0.2 mg/dL (0.0-0.5); Bilirubin Total 0.4 mg/dL (0.0-1.0); Gamma Glutamyl Transpeptidase 143 U/L (7-33); Iron 111 mcg/dL (30-160); Percent Iron Saturation 31 % (15-50); Total Iron Binding Capacity 362 mcg/dL (228-428); Total Protein 7.5 g/dL (6.5-8.0); Unsaturated Iron Binding 251 ug/dL
[2022-08-21 11:16] LABS: Ferritin 67 ng/mL (10-250)
[2022-08-23 13:39] LABS: Alpha Fetoprotein 2.9 ng/mL
[2022-08-23 14:38] LABS: Ceruloplasmin 31 mg/dL (18-53)
[2022-08-26 18:00] LABS: FIB-ALT 34 U/L (6-29); FIB-Alpha-2-Macroglobulin 164 mg/dL (106-279); FIB-Apolipoprotein A1 166 mg/dL (101-198); FIB-GGT 116 U/L (3-55); FIB-Haptoglobin 215 mg/dL (43-212); FIB-Total Bilirubin 0.3 mg/dL (0.2-1.2); Liver Fibrosis Score 0.09; Liver Fibrosis Stage F0; Nec Inflam Act Grade A0; Nec Inflam Act Score 0.13
[2022-08-26 21:33] LABS: Alk.Phos Iso. Macrohepatic 0 % (<=0); Alk.Phos Isoenzymes Bone 39 % (28-66); Alk.Phos Isoenzymes Intest 3 % (1-24); Alk.Phos Isoenzymes Liver 59 % (25-69); Alk.Phos Isoenzymes Placental 0 % (<=0); Alk.Phos Isoenzymes Total 135 U/L (31-125)
[2022-08-27 13:54] LABS: Smooth Muscle Antibody <20 U (<20)
[2022-08-29 13:08] LABS: Mitochondrial Antibodies NEGATIVE (NEGATIVE)
== END 2022-08-21 09:34 | disposition home or self-care (01) ==
LOC: HO.LAB 09:33
PROVIDERS: PCP Internal Medicine; Visit Provider Nurse Practitioner Family
DX: R10.9 Unspecified abdominal pain (principal); K92.2 Gastrointestinal hemorrhage, unspecified; E11.9 Type 2 diabetes mellitus without complications; R74.8 Abnormal levels of other serum enzymes; R79.89 Other specified abnormal findings of blood chemistry
CPT/HCPCS: 36415; 80076; 81596; 82105; 82390; 82728; 82977; 83036; 83540; 84080; 85610; 86015; 86255; 86256; 99212

== ENCOUNTER → 2022-09-25 10:28 | Outpatient (BNVA) | payer OTHER, SELFPAY | PROVIDERS: PCP Internal Medicine; Visit Provider Nurse Practitioner Family | DX: R10.11 Right upper quadrant pain (principal); R79.89 Other specified abnormal findings of blood chemistry; K58.2 Mixed irritable bowel syndrome | CPT/HCPCS: 99212 ==

== ENCOUNTER → 2022-10-24 14:00 | Outpatient (BNVA) | payer OTHER, SELFPAY | PROVIDERS: PCP Internal Medicine; Visit Provider Surgery Vascular Surgery | DX: I73.9 Peripheral vascular disease, unspecified (principal); I73.00 Raynaud's syndrome without gangrene; I83.11 Varicose veins of right lower extremity with inflammation; I83.12 Varicose veins of left lower extremity with inflammation | CPT/HCPCS: 99212 ==

== ENCOUNTER → 2022-10-28 16:32 | Outpatient (BNVA) | payer OTHER, SELFPAY | PROVIDERS: PCP Internal Medicine; Visit Provider Nurse Practitioner Family | DX: R10.11 Right upper quadrant pain (principal); K21.9 Gastro-esophageal reflux disease without esophagitis; K59.00 Constipation, unspecified; K86.89 Other specified diseases of pancreas; E04.1 Nontoxic single thyroid nodule | CPT/HCPCS: 99212 ==

== ENCOUNTER 2022-11-13 13:26 | Outpatient (REF) | payer OTHER, SELFPAY ==
--- NOTE | ~2022-11-13 | US_ITS ---
EXAMINATION: ANKLE-BRACHIAL INDICES SINGLE LEVEL PULSE VOLUME RECORDING ARTERIAL DUPLEX BILATERAL LEGS CLINICAL INFORMATION: Peripheral vascular disease. COMPARISON: None TECHNIQUE: Ankle-brachial indices and PVR at the ankle were obtained. Duplex Doppler of the bilateral lower extremity arterial systems was performed. FINDINGS: RIGHT: Ankle-brachial index: 1.28 PVR: Normal Common femoral: PSV 150 cm/s. Mildly abnormal triphasic waveform. Deep femoral: PSV 104 cm/s. Mildly abnormal triphasic waveform. Proximal superficial femoral: PSV 134 cm/s. Mildly abnormal triphasic waveform. Mid superficial femoral: PSV 141 cm/s. Triphasic waveform. Distal superficial femoral: PSV 111 cm/s. Triphasic waveform. Popliteal: PSV 61 cm/s. Triphasic waveform. Posterior tibial: PSV 81 cm/s. Triphasic waveform. Peroneal: PSV 66 cm/s. Triphasic waveform. LEFT: Ankle-brachial index: 1.17 PVR: Normal Common femoral: PSV 143 cm/s. Mildly abnormal triphasic waveform. Deep femoral: PSV 90 cm/s. Mildly abnormal triphasic waveform. Proximal superficial femoral: PSV 108 cm/s. Triphasic waveform. Mid superficial femoral: PSV 105 cm/s. Triphasic waveform. Distal superficial femoral: PSV 79 cm/s. Triphasic waveform. Popliteal: PSV 62 cm/s. Triphasic waveform. Posterior tibial: PSV 73 cm/s. Triphasic waveform. Peroneal: PSV 43 cm/s. Triphasic waveform. US/US DC complete IMPRESSION: Normal ankle-brachial indices. Normal PVR waveforms. Mildly abnormal triphasic waveforms in the proximal lower extremities bilaterally which may be technical. Otherwise triphasic Doppler waveforms in the mid and distal lower extremities. No convincing evidence of hemodynamically significant peripheral vascular disease. Recent CT 01/25/2022 shows no aortoiliac or upper femoral calcification to suggest significant inflow disease.
--- NOTE | ~2022-11-13 | US_ITS ---
EXAMINATION: ANKLE-BRACHIAL INDICES SINGLE LEVEL PULSE VOLUME RECORDING ARTERIAL DUPLEX BILATERAL LEGS CLINICAL INFORMATION: Peripheral vascular disease. COMPARISON: None TECHNIQUE: Ankle-brachial indices and PVR at the ankle were obtained. Duplex Doppler of the bilateral lower extremity arterial systems was performed. FINDINGS: RIGHT: Ankle-brachial index: 1.28 PVR: Normal Common femoral: PSV 150 cm/s. Mildly abnormal triphasic waveform. Deep femoral: PSV 104 cm/s. Mildly abnormal triphasic waveform. Proximal superficial femoral: PSV 134 cm/s. Mildly abnormal triphasic waveform. Mid superficial femoral: PSV 141 cm/s. Triphasic waveform. Distal superficial femoral: PSV 111 cm/s. Triphasic waveform. Popliteal: PSV 61 cm/s. Triphasic waveform. Posterior tibial: PSV 81 cm/s. Triphasic waveform. Peroneal: PSV 66 cm/s. Triphasic waveform. LEFT: Ankle-brachial index: 1.17 PVR: Normal Common femoral: PSV 143 cm/s. Mildly abnormal triphasic waveform. Deep femoral: PSV 90 cm/s. Mildly abnormal triphasic waveform. Proximal superficial femoral: PSV 108 cm/s. Triphasic waveform. Mid superficial femoral: PSV 105 cm/s. Triphasic waveform. Distal superficial femoral: PSV 79 cm/s. Triphasic waveform. Popliteal: PSV 62 cm/s. Triphasic waveform. Posterior tibial: PSV 73 cm/s. Triphasic waveform. Peroneal: PSV 43 cm/s. Triphasic waveform. US/US arterial duplex LE BI IMPRESSION: Normal ankle-brachial indices. Normal PVR waveforms. Mildly abnormal triphasic waveforms in the proximal lower extremities bilaterally which may be technical. Otherwise triphasic Doppler waveforms in the mid and distal lower extremities. No convincing evidence of hemodynamically significant peripheral vascular disease. Recent CT 01/25/2022 shows no aortoiliac or upper femoral calcification to suggest significant inflow disease.
== END 2022-11-13 13:27 | disposition home or self-care (01) ==
LOC: HO.US 13:26
PROVIDERS: Visit Provider Surgery Vascular Surgery
DX: I70.213 Atherosclerosis of native arteries of extremities with intermittent claudication, bilateral legs (principal)
CPT/HCPCS: 93923; 93925

== ENCOUNTER → 2022-11-21 13:52 | Outpatient (BNVA) | payer OTHER, SELFPAY | PROVIDERS: PCP Internal Medicine; Visit Provider Surgery Vascular Surgery | DX: I73.00 Raynaud's syndrome without gangrene (principal); I73.9 Peripheral vascular disease, unspecified; I83.11 Varicose veins of right lower extremity with inflammation; I83.12 Varicose veins of left lower extremity with inflammation | CPT/HCPCS: 99212 ==

== ENCOUNTER → 2022-12-05 07:54 | Outpatient (BNVA) | payer OTHER, SELFPAY | PROVIDERS: PCP Internal Medicine; Visit Provider Internal Medicine Rheumatology | DX: M79.7 Fibromyalgia (principal); M19.071 Primary osteoarthritis, right ankle and foot; I73.00 Raynaud's syndrome without gangrene | CPT/HCPCS: 99202 ==

== ENCOUNTER 2022-12-23 09:44 | Outpatient (REF) | payer OTHER, SELFPAY ==
--- NOTE | ~2022-12-23 | MM_ITS ---
EXAMINATION: MM SCREENING DIGITAL BREAST TOMOSYNTHESIS, BILATERAL CLINICAL INFORMATION: Screening. Asymptomatic. Family history premenopausal breast cancer, sisters x3. The lifetime risk of breast cancer based on the Tyrer-Cuzick Model is 27%. COMPARISON: Mammography: 02/26/2021; outside mammography 04/29/2017, 04/23/2016 ([facility]) TECHNIQUE: Digital breast tomosynthesis is performed in both the craniocaudal and mediolateral oblique views along with computer-aided detection (CAD). Synthesized 2D images are generated from the tomosynthesis. FINDINGS: The breasts are heterogeneously dense, which may obscure small masses (ACR BI-RADS breast composition Category c). There are no significant masses, abnormal calcifications, or other abnormalities. Breast tissue composition borders on average fibroglandular. Parenchymal pattern is similar to prior studies. There is no developing density or architectural abnormality. The axilla and skin contours are unremarkable. No significant changes. MM/MM tomosynthesis screening BI IMPRESSION: No mammographic evidence of malignancy. ASSESSMENT: BI-RADS 1: Negative RECOMMENDATION: -Routine annual mammography screening. -The lifetime risk of breast cancer based on the Tyrer-Cuzick Model is 27%. Additional annual adjunct screening with breast MRI may be of benefit in women with a risk score of 20% or greater. This patient's information was entered into a reminder system with a target due date for their next mammogram.
== END 2022-12-23 09:45 | disposition home or self-care (01) ==
LOC: HO.MAMMO 09:44
PROVIDERS: PCP Internal Medicine; Visit Provider Internal Medicine
DX: Z12.31 Encounter for screening mammogram for malignant neoplasm of breast (principal)
CPT/HCPCS: 77063; 77067

== ENCOUNTER → 2022-12-31 07:53 | Outpatient (BNVA) | payer OTHER, SELFPAY | PROVIDERS: PCP Internal Medicine; Visit Provider Advanced Practice Midwife ==

== ENCOUNTER 2023-02-03 15:16 | Outpatient (REF) | payer OTHER, SELFPAY ==
[2023-02-03 17:27] LABS: Alanine Aminotransferase 37 U/L (0-31); Albumin Level 4.2 g/dL (3.5-5.0); Alkaline Phosphatase 120 U/L (39-117); Anion Gap 11 (12-20); Aspartate Amino Transferase 22 U/L (5-31); Bilirubin Direct 0.1 mg/dL (0.0-0.5); Bilirubin Total 0.4 mg/dL (0.0-1.0); Blood Urea Nitrogen 12 mg/dL (9-16); Calcium 9.5 mg/dL (8.4-10.2); Carbon Dioxide 28 mmol/L (22-29); Chloride 104 mmol/L (96-108); Cholesterol 175 mg/dL; Estimated Glomerular Filt Rate > 60; Glucose Fasting 98 mg/dL (60-99); HDL Cholesterol 48 mg/dL; LDL Cholesterol Calculated 98 mg/dl; Lipase 22 U/L (8-78); Magnesium 2.2 mg/dL (1.6-2.6); Potassium 4.2 mmol/L (3.3-5.1); Sodium 139 mmol/L (135-145); Total Protein 6.9 g/dL (6.5-8.0); Triglycerides 146 mg/dL
[2023-02-03 17:50] LABS: Erythrocyte Sedimentation Rate 10 MM/HR (0-20)
[2023-02-03 17:57] LABS: Vitamin B12 782 pg/mL (200-900)
[2023-02-03 18:04] LABS: Total Protein Urine Random < 7 mg/dL (<12)
[2023-02-04 17:05] LABS: Scleroderma 70 Antibody <1.0 NEG AI (<1.0 NEG)
[2023-02-05 15:37] LABS: Anti Nuclear Antibody Screen NEGATIVE (NEGATIVE)
[2023-02-07 14:33] LABS: Vitamin A 50 mcg/dL (38-98)
[2023-02-08 09:28] LABS: Transglutaminase IgA <1.0 U/mL
== END 2023-02-03 15:17 | disposition home or self-care (01) ==
LOC: HO.LAB 15:16
PROVIDERS: Internal Medicine Rheumatology; PCP Internal Medicine; Visit Provider Nurse Practitioner Family
DX: Z00.00 Encounter for general adult medical examination without abnormal findings (principal); K86.89 Other specified diseases of pancreas; K58.2 Mixed irritable bowel syndrome; K21.9 Gastro-esophageal reflux disease without esophagitis; I73.00 Raynaud's syndrome without gangrene; R10.9 Unspecified abdominal pain; R10.13 Epigastric pain; R17 Unspecified jaundice; R30.0 Dysuria
CPT/HCPCS: 36415; 80053; 80061; 80076; 82248; 82607; 82746; 83690; 83735; 84156; 84443; 84590; 85652; 86038; 86235; 86364; 99202

== ENCOUNTER 2023-03-11 07:43 | Outpatient (REF) | payer OTHER, SELFPAY ==
--- NOTE | ~2023-03-11 | CT_ITS ---
EXAMINATION: CT ENTEROGRAPHY ABDOMEN AND PELVIS WITHOUT CONTRAST CLINICAL INFORMATION: Abdominal pain. COMPARISON: Previous MRCP July 2022, abdominal ultrasound April 2022, CT of the abdomen and pelvis January 2022. TECHNIQUE: Study performed with oral VoLumen (1350 mL) and 480 mL of water to distend the abdomen. IV access could not be obtained. Coronal and sagittal reformatted images were obtained at the technologist's workstation. This CT examination was performed using dose optimization techniques as appropriate, variously including the following: *Automated exposure control *Adjustment of mA and/or kV according to patient size (this includes techniques or standardized protocols for targeted exams where dose is matched to indication/reason for exam; i.e. extremities or head) *Use of iterative reconstruction technique DLP: 556 mGy-cm FINDINGS: GASTROINTESTINAL FINDINGS: Stomach: Well-distended and normal in appearance. Small intestine: Satisfactorily distended and normal in appearance. Large intestine: Mild diverticulosis of the colon. Well-distended and otherwise normal in appearance. No perirectal changes demonstrated. The appendix is normal. Additional findings: No abnormal enhancement of the vasa recta or significant mesenteric or retroperitoneal lymphadenopathy is seen. No abdominal abscess or fistulous tract demonstrated. ABDOMINAL AND PELVIC CT FINDINGS: Liver, gallbladder, biliary tract: The liver is normal in size, shape and contour. There is pneumobilia. No biliary duct dilatation. The gallbladder has been removed. Pancreas: Normal. Spleen: Normal. Adrenal glands and kidneys: The adrenal glands are normal. There are small bilateral renal stones. There is fullness of both renal collecting systems, right greater than left. No definite hydronephrosis. No ureteral stone. Ureters and bladder: Normal. Lymphovascular structures: Normal. Bones: Mild degenerative changes of the thoracic spine. Lung bases: Normal. Small umbilical hernia containing fat. CT/CT enterography IMPRESSION: Mild diverticulosis of the colon. Otherwise unremarkable enterography exam. Pneumobilia. No biliary duct dilatation. Small bilateral renal stones. Mild fullness of both renal collecting systems.
[2023-03-11] MEDS: Sorbitol/Mannit/Xanth Imaging 500 ML LIQUID 1500 ML PO (10:28)
== END 2023-03-11 07:44 | disposition home or self-care (01) ==
LOC: HO.CT 07:43
PROVIDERS: Visit Provider Nurse Practitioner Family
DX: R10.13 Epigastric pain (principal); K21.9 Gastro-esophageal reflux disease without esophagitis
CPT/HCPCS: 74177

== ENCOUNTER 2023-03-20 08:41 | Outpatient (AMB) | payer OTHER, SELFPAY ==
[2023-03-20 08:47] VITALS: BP 121/61; PULSE 63; BMI 29.5
--- NOTE | 2023-03-20 08:47 | A.OFFVIS_ITS ---
Intake Vital Signs 03/20/23 08:47 Height 5 ft 2 in Weight 161 lb 6.054 oz BMI 29.5 BP 121/61 Blood Pressure Location Lt brachial Position Sitting Pulse 63 Intake Visit Reasons: CT follow up Intake Note: Courtney presents in office as a est.patient for a CT f/u PT CC:pt reports having abdominal pain, bloating pt denies any other GI Issues Packaging Technician Required: No Accompanied by: Daughter Allergies No Known Allergies Allergy (Verified 04/16/23 09:23) HPI CT follow up HPI Details LAST VISIT Chronic GERD Patient reports that she continues to have acid reflux after taking pantopra zole. We will change PPI to Nexium. Patient will call our office next week to see if she has improvement in her symptoms. However discussed with patient avoiding dietary triggers in late night snacking. Patient was instructed to actually eating more often and smaller meals. Her not eating at all could contribute to the epigastric discomfort and increase in gas production. Epigastric pain Patient reports epigastric discomfort. Also pain in the right and left upper quadrant just underneath her ribcage. Discussed with patient the importance of avoiding dietary triggers. Will continue her on sucralfate at night time, however discussed with patient the importance of going to do her blood work as was ordered last visit. I will also send her for CT enterography to rule out any inflammation to her small bowel. If patient will continue to have symptoms we might consider putting her on metronidazole for SIBO. IBS (irritable bowel syndrome) Stressed the importance of diet. I commended patient for trying to change her diet and eating healthy, however we did discuss that some of the things that are healthy are not necessary good for her to eat. I asked her to stop black seed we will unless she has something to eat. It should not be taking on empty stomach. The same thing for apple cider vinegar. Patient was encouraged to look again at her list to see if any of the things that she eating could be contributing to her symptoms. Patient was encouraged to try to stay away from [employer] and looking up her symptoms and concentrating more on diet. Discussed with her the moving her bowels is very important. I did mention that fermentation process can be going on in her bowel after eating high FODMAP food. Discussed with her that her pain that is moving and is not related to eating could be related to gas trapping causing distension and pain and her not eliminating her bowels better. I will start her on Linzess 72 mcg. Patient will start taking that on the weekend when she is not working to see how this will work for her. Patient will stop taking Creon, no change in her bloating and discomfort. I will see her in 5 weeks, sooner on as needed basis. Patient is agreeable to this plan and verbalizes understanding of instructions. She was given the opportunity to ask questions and all questions answered. ? Thank you for allowing me to participate in her care Plan Orders Orders CT enterography Today K21.9, R10.13 Medications New esomeprazole magnesium (Nexium) 40 mg PO DAILY 30 caps 5RF K21.9 linaclotide (Linzess) 72 mcg PO DAILY 30 caps 2RF Discontinued pantoprazole take one tablet half an hour before breakfast Discontinued Reason: Duplicate 40 mg PO DAILY 90 tabs 2RF K21.9 TODAY'S VISIT Patient is here today for follow-up and to discuss CT scan results. Patient con tinues to have occasional postprandial bloating and right upper quadrant pain. States that she is feeling little bit better, however she continues to have pain. Patient states that she will be good for a while and then she will have the bloating and pain again without really changing anything that she eats. Patient denies dyspepsia, dysphagia odynophagia. Denies any melena, hematochezia, unintentional weight loss or ribbon like stools. Patient is taking Nexium in the morning and sucralfate at bedtime. [facility] Medical History Anxiety and depression Cervical cancer Chest pain Chronic GERD Cough Depression Elevated platelet count FH: breast cancer in first degree relative Fibromyalgia CATHY (generalized anxiety disorder) GERD (gastroesophageal reflux disease) Hand pain, right Left foot pain Moderate recurrent major depression Obesity (BMI 30.0-34.9) PCOS (polycystic ovarian syndrome) Right foot pain Thyroid nodule Transaminitis Vitamin D deficiency Surgical History H/O cone biopsy of cervix H/O tubal ligation History of esophagogastroduodenoscopy (EGD) Hx of cholecystectomy Hx of colonoscopy Previous back surgery Status post ablation of incompetent vein using laser Family History Mother Diabetes Lung cancer Father Pancreatitis Sister History of breast cancer Ovarian cancer Sister Breast cancer, Onset Age: 50 Sister Breast cancer, Onset Age: 50 Sister Thyroid cancer Breast cancer Bone cancer Social History Housing: House Alcohol intake: never Patient Tobacco Use Status: Never used Tobacco e-Cigarette/Vaping Use: Never Used Second Hand Smoke Exposure: No service: No Current occupational status: employed Current occupation: [employer] Current occupational exposures/hazards: No Sexual orientation: Straight/Heterosexual Gender identity: Female Cognitive needs: No Hearing needs: No Vision needs: No Review of Systems Const Denies weight gain and Denies weight loss ENT Reports no additional complaints, Denies dysphagia and Denies odynophagia Card Reports no additional complaints Resp Reports no additional complaints GI Reports abdominal pain (epigastric), Denies belching, Denies melena, Denies bloating, Denies change in bowel habits, Denies dysphagia, Denies excessive flatus, Denies dyspepsia, Reports heartburn, Denies diarrhea, Denies loose stools, Denies nausea, Denies odynophagia and Denies vomiting Reports no additional complaints Musc Reports no additional complaints Neuro Reports no additional complaints Psych Reports no additional complaints Endo Reports no additional complaints Physical Exam Vital Signs: Last Vital Signs Pulse 63 03/20/23 08:47 BP 121/61 03/20/23 08:47 BMI result Body Mass Index 29.5 Results Reviewed Results Reviewed: CT ENTEROGRAPHY 03/11/2023 FINDINGS: GASTROINTESTINAL FINDINGS: Stomach: Well-distended and normal in appearance.? Small intestine: Satisfactorily distended and normal in appearance.? Large intestine: Mild diverticulosis of the colon. Well-distended and otherwise normal in appearance. No perirectal changes demonstrated. The appendix is normal.? Additional findings: No abnormal enhancement of the vasa recta or significant mesenteric or retroperitoneal lymphadenopathy is seen. No abdominal abscess or fistulous tract demonstrated. ABDOMINAL AND PELVIC CT FINDINGS: Liver, gallbladder, biliary tract: The liver is normal in size, shape and contour. There is pneumobilia. No biliary duct dilatation. The gallbladder has been removed. Pancreas: Normal.? Spleen: Normal.? Adrenal glands and kidneys: The adrenal glands are normal. There are small bilateral renal stones. There is fullness of both renal collecting systems, right greater than left. No definite hydronephrosis. No ureteral stone. Ureters and bladder: Normal.? Lymphovascular structures: Normal.? Bones: Mild degenerative changes of the thoracic spine. Lung bases: Normal.? Small umbilical hernia containing fat. CT/CT enterography IMPRESSION: Mild diverticulosis of the colon. Otherwise unremarkable enterography exam. ? Pneumobilia. No biliary duct dilatation. ? Small bilateral renal stones. Mild fullness of both renal collecting systems. Assessment & Plan Assessment & Plan (1) Chronic GERD: Code(s): K21.9 - Gastro-esophageal reflux disease without esophagitis Plan: Continue Nexium and sucralfate. Patient was encouraged to avoid dietary triggers in late night snacking. Staying upright for minimal 3 hours after meals discussed with patient. (2) Epigastric pain: Code(s): R10.13 - Epigastric pain Plan: Postprandial epigastric discomfort. Continue PPI therapy and sucralfate (3) IBS (irritable bowel syndrome): Code(s): K58.9 - Irritable bowel syndrome without diarrhea Qualifiers: Irritable bowel syndrome type: without diarrhea Qualified Code(s): K58.9 - Irritable bowel syndrome without diarrhea Plan: Postprandial abdominal bloating. Continue Linzess, I will see patient in 5 weeks, sooner on as needed basis. Patient is agreeable to this plan and verbalizes understanding of instructions. She was given the opportunity to ask questions and all questions answered. Thank you for allowing me to participate in her care Medications: Refilled sucralfate 1 g PO BEDTIME 90 tabs 2RF K21.9 - Gastro-esophageal reflux disease without esophagitis Coding Level of Care Code Est Pt Level 4 (58992) Diagnoses Chronic GERD K21.9 Epigastric pain R10.13 IBS (irritable bowel syndrome) K58.9 Irritable bowel syndrome type: without diarrhea Time Spent (min) 40 Comment 25 minutes spent with patient and additional 15 minutes spent reviewing her records
== END 2023-03-20 09:43 | disposition home or self-care (01) ==
PROVIDERS: PCP Internal Medicine; Visit Provider Nurse Practitioner Family
DX: K21.9 Gastro-esophageal reflux disease without esophagitis (principal); R10.13 Epigastric pain; K58.9 Irritable bowel syndrome, unspecified
CPT/HCPCS: 99213; 99214

== ENCOUNTER → 2023-03-20 08:41 | Outpatient (BNVA) | payer OTHER, SELFPAY | PROVIDERS: PCP Internal Medicine; Visit Provider Nurse Practitioner Family | DX: K58.9 Irritable bowel syndrome, unspecified (principal); K21.9 Gastro-esophageal reflux disease without esophagitis; R10.13 Epigastric pain | CPT/HCPCS: 99212 ==

== ENCOUNTER 2023-04-16 09:15 | Outpatient (AMB) | payer OTHER, SELFPAY ==
[2023-04-16 09:21] VITALS: BP 108/80; PULSE 52; BMI 30.1
--- NOTE | 2023-04-16 09:21 | MHC.OFFVIS ---
Intake Vital Signs 04/16/23 09:21 Height 5 ft 2 in Weight 164 lb 7.437 oz BMI 30.1 BP 108/80 Blood Pressure Location Lt brachial Position Sitting Pulse 52 Intake Visit Reasons: NPV/[place]/precordial pain Intake Note: NPV Telephonic Case Manager Required: No Accompanied by: Daughter Allergies No Known Allergies Allergy (Verified 04/16/23 09:23) Medication List - Last Reconciled 04/16/23 by Bishop Golden MD cholecalciferol (vitamin D3) 50 mcg PO DAILY 90 days esomeprazole magnesium (Nexium) 40 mg PO DAILY linaclotide (Linzess) 72 mcg PO DAILY sucralfate 1 g PO BEDTIME HPI HPI Comments History of Present Illness Details Courtney is here for consultation regarding chest pains. We have seen her in the past about 2 years ago. Pains somewhat atypical as she points to 1 area in the chest where she has fairly frequent pain. Essentially all the time. There is no clear provoking factors and it can come on any time. There is no history of any coronary disease, myocardial infarction or cardiomyopathy. No major cardiovascular risk factors. [facility] Medical History Anxiety and depression Cervical cancer Chest pain Chronic GERD Cough Depression Elevated platelet count FH: breast cancer in first degree relative Fibromyalgia CATHY (generalized anxiety disorder) GERD (gastroesophageal reflux disease) Hand pain, right Left foot pain Moderate recurrent major depression Obesity (BMI 30.0-34.9) PCOS (polycystic ovarian syndrome) Right foot pain Thyroid nodule Transaminitis Vitamin D deficiency Surgical History H/O cone biopsy of cervix H/O tubal ligation History of esophagogastroduodenoscopy (EGD) Hx of cholecystectomy Hx of colonoscopy Previous back surgery Status post ablation of incompetent vein using laser Family History Mother Diabetes Lung cancer Father Pancreatitis Sister History of breast cancer Ovarian cancer Sister Breast cancer, Onset Age: 50 Sister Breast cancer, Onset Age: 50 Sister Thyroid cancer Breast cancer Bone cancer Social History Housing: House Alcohol intake: never Patient Tobacco Use Status: Never used Tobacco e-Cigarette/Vaping Use: Never Used Second Hand Smoke Exposure: No service: No Current occupational status: employed Current occupation: [employer] Current occupational exposures/hazards: No Sexual orientation: Straight/Heterosexual Gender identity: Female Cognitive needs: No Hearing needs: No Vision needs: No Review of Systems Const Denies chills, Denies daytime sleepiness, Denies fatigue, Denies fever(s), Denies frequent falls, Denies night sweats, Denies snoring, Denies weakness, Denies weight gain and Denies weight loss Eyes Denies loss of vision ENT Denies dizziness and Denies hearing loss Card Denies chest pain, Denies chest pain with activity, Denies syncope, Denies rapid heart rate, Denies edema, Denies claudication, Denies leg edema, Denies lightheadedness, Denies palpitations, Denies dyspnea, Denies dyspnea on exertion and Denies orthopnea Resp Denies cough, Denies excessive phlegm production, Denies dyspnea, Denies dyspnea on exertion, Denies snoring and Denies wheezing GI Denies abdominal pain, Denies hematochezia, Denies change in bowel habits, Denies change in stool character, Denies heartburn, Denies nausea and Denies vomiting Denies hematuria, Denies urinary frequency and Denies dysuria Musc Denies arthralgias, Denies muscle weakness, Denies numbness and Denies tingling Skin/Breast Denies nail changes and Denies rash Neuro Denies Abnormal speech present, Denies dizziness, Denies syncope, Denies frequent falls, Denies loss of vision, Denies memory loss, Denies numbness, Denies tingling and Denies weakness Psych Denies depression and Denies memory loss Endo Denies fatigue and Denies palpitations Aller/Immun Denies wheezing Physical Exam Vital Signs: Last Vital Signs Pulse 52 04/16/23 09:21 BP 108/80 04/16/23 09:21 BMI result Body Mass Index 30.1 Const General: comfortable and no acute distress Orientation/consciousness: patient oriented x3 HEENT Other: Unremarkable Head: Yes normal to inspection Neck Neck: Yes normal visual inspection Chest Chest palpation & inspection: normal inspection of the chest Resp Auscultation: clear to auscultation bilaterally Cardio Palpation: normal PMI Heart sounds: S1 normal heart sound present, S2 normal heart sound present, no gallops, no murmurs and no rubs GI Palpation (GI): Soft to palpation Back/Spine/Pelvis Other: unremarkable Skin General skin exam: no rashes or lesions noted Neuro General: patient oriented x3 Speech: No Abnormal speech present Extrem General: Yes normal to inspection Psych Mental Status: mental status grossly normal Assessment & Plan Assessment & Plan (1) Chest pain: Code(s): R07.9 - Chest pain, unspecified Qualifiers: Chest pain type: unspecified Qualified Code(s): R07.9 - Chest pain, unspecified Plan EKG with sinus bradycardia, 55/Min; no significant ST-T changes and otherwise unremarkable. Normal ND and corrected QT. In the stress test 2020, was able to exercise for 6 minutes and 15 seconds on Raciel protocol. Reached 79% of max predicted heart rate. Shortness of breath and some chest burning but she had the chest pounding even before the exercise. There is no major change during the actual stress test. EKG was nondiagnostic. Overall, atypical symptoms that have been ongoing for quite some time with numerous evaluations as well as stress testing. To rule out any cardiac issues, we will hence proceed with further workup including a coronary CTA/echocardiogram. Discussed with patient. Total time spent including review of data, counseling, documentation, coordination of care-32 minutes. Orders: Orders CA echo transthoracic complete Today I25.10 - Atherosclerotic heart disease of [place] coronary artery without angina pectoris, R07.9 - Chest pain, unspecified CT Cardiac Coronary Angio Today R07.2 - Precordial pain, R07.9 - Chest pain, unspecified Coding Level of Care Code Est Pt Level 4 (12915) Diagnoses Chest pain R07.9 Chest pain type: unspecified
== END 2023-04-16 09:39 | disposition home or self-care (01) ==
PROVIDERS: Visit Provider Internal Medicine
DX: R07.9 Chest pain, unspecified (principal)
CPT/HCPCS: 99214

== ENCOUNTER → 2023-04-16 09:15 | Outpatient (BNVA) | payer OTHER, SELFPAY | PROVIDERS: Visit Provider Internal Medicine | DX: R07.9 Chest pain, unspecified (principal) | CPT/HCPCS: 99212 ==

== ENCOUNTER 2023-04-23 11:39 | Emergency (ER) | payer OTHER, SELFPAY ==
[2023-04-23 12:12] VITALS: BP 150/70; PULSE 99; RESP 19; TEMP 36.7; O2SAT 97; BMI 30.2
--- NOTE | 2023-04-23 12:38 | ED.GENADULT ---
HPI - General Adult General Chief complaint: Dental/Oral Stated complaint: tooth infection Time Seen by Provider: 04/23/23 12:38 Source: patient Mode of arrival: ambulatory Limitations: no limitations History of Present Illness HPI narrative: 48 y/o F with PMHx of chronic pancreatitis presents with tooth pain for 5 days. She reports that her pain is on the right side of her jaw and radiates to her ear. She also has a hard time opening her mouth and reports pain with swallowing. She has tried Aleeve for the pain but reports that it did not help. She also reports subjective fevers, chills, headaches and nausea. Patient denies vomiting, abdominal pain, chest pain, shortness of breath. She has been to two dentists in the past few days who told her that she has an infected R molar, however they did not give her antibiotics. They stated that her molar needs to be removed but she reports that she cannot due to not having dental insurance. She came here because she is unable to tolerate the pain Onset (ago): day(s) (5) Location: face and mouth Severity: mild Severity scale (1-10): 3 Quality: aching and dull Pain Consistency: constant Relieving factors: none Exacerbating factors: none Associated symptoms: denies other symptoms Treatments prior to arrival: NSAID Related Data Previous Rx's Medication Instructions Recorded cholecalciferol (vitamin D3) 50 50 mcg PO DAILY 90 days #90 caps 12/21/21 mcg (2,000 unit) capsule esomeprazole magnesium 40 mg 40 mg PO DAILY #30 caps 02/03/23 capsule,delayed release (Nexium) linaclotide 72 mcg capsule 72 mcg PO DAILY #30 caps 02/03/23 (Linzess) sucralfate 1 gram tablet 1 g PO BEDTIME #90 tabs 03/20/23 chlorhexidine gluconate 0.12 % 15 ml buccal BID #118 mL 04/23/23 mouthwash (Peridex) naproxen 500 mg tablet 500 mg PO BID 7 days #14 tabs 04/23/23 penicillin V potassium 500 mg 500 mg PO BID 10 days #20 tabs 04/23/23 tablet Allergies Allergy/AdvReac Type Severity Reaction Status Date / Time No Known Allergies Allergy Verified 04/16/23 09:23 Review of Systems Constitutional: Constitutional: Reports no additional constitutional complaints, Denies chills, Denies fever(s) and Denies night sweats Eyes: Eyes: Reports no additional eye complaints, Denies blurry vision, Denies change in vision, Denies diplopia, Denies eye discharge, Denies loss of vision and Denies eye pain ENT: Denies dizziness Comments: dental pain Cardiovascular: Cardiovascular: Reports no additional cardiovascular complaints, Denies chest pain, Denies lightheadedness, Denies Loss of Consciousness and Denies dyspnea Respiratory: Respiratory: Reports no additional respiratory complaints and Denies dyspnea Gastrointestinal: Gastrointestinal: Reports no additional gastrointestinal complaints, Denies abdominal pain, Denies melena, Denies hematochezia, Denies change in bowel habits and Denies change in stool character Genitourinary: Genitourinary: Denies hematuria, Denies urinary frequency, Denies dysuria, Denies urinary incontinence, Denies urinary hesitancy and Denies urinary urgency Musculoskeletal: Musculoskeletal: Reports no additional musculoskeletal complaints, Denies numbness and Denies tingling Neurologic: Denies dizziness, Denies loss of vision, Denies numbness and Denies tingling Psychiatric: Psychiatric: Reports no additional psychiatric complaints Endocrine: Endocrine: Reports no additional endocrine complaints Hematologic/Lymphatic: Hematologic/Lymphatic: Reports no additional hematologic/lymphatic complaints Allergic/Immunologic: Allergic/Immunologic: Reports no additional allergic/immunologic complaints [facility] Past Medical History Attestation statement: The following information was validated with the patient. Source: old records reviewed and nursing notes reviewed Medical History (Updated 04/23/23 @ 15:14 by SANGITA Walsh) Abdominal pain Adult general medical exam Anxiety and depression Bilateral hand pain Cervical cancer Chest discomfort Chest pain Chest pain Chronic GERD Cough Depression Elevated liver function tests Elevated platelet count Fatigue FH: breast cancer in first degree relative Fibromyalgia CATHY (generalized anxiety disorder) GERD (gastroesophageal reflux disease) Hand pain, right Left foot pain Moderate recurrent major depression Obesity (BMI 30.0-34.9) Osteoarthritis of foot, right Pain in left shoulder PCOS (polycystic ovarian syndrome) Rib pain on right side Right foot pain Right knee pain Thyroid nodule Transaminitis Vitamin D deficiency Surgical History H/O cone biopsy of cervix H/O tubal ligation History of esophagogastroduodenoscopy (EGD) Hx of cholecystectomy Hx of colonoscopy Previous back surgery Status post ablation of incompetent vein using laser Family History Family History Mother Diabetes Lung cancer Father Pancreatitis Sister History of breast cancer Ovarian cancer Sister Breast cancer, Onset Age: 50 Sister Breast cancer, Onset Age: 50 Sister Thyroid cancer Breast cancer Bone cancer Social History Social History Housing: House Alcohol intake: never Patient Tobacco Use Status: Never used Tobacco e-Cigarette/Vaping Use: Never Used Second Hand Smoke Exposure: No Advance Directives: No Advance Directives Information Provided: No service: No Current occupational status: employed Current occupation: [employer] Current occupational exposures/hazards: No Sexual orientation: Straight/Heterosexual Gender identity: Female Cognitive needs: No Hearing needs: No Vision needs: No Physical Exam ED Vital Signs: Vital Signs - 24 hr 04/23/23 12:12 Temperature 98.0 F Pulse Rate 99 Respiratory Rate 19 Blood Pressure 150/70 H Pulse Oximetry 97 Oxygen Delivery Method Room Air BMI result Body Mass Index 30.2 Const General: cooperative, no acute distress, alert and awake Nutritional Appearance: well nourished Orientation/consciousness: patient oriented x3 Limitations: no limitations HENMT Head: Yes normal to inspection and Yes atraumatic Ears: hearing grossly normal bilaterally and external ears normal General nose exam: Normal external nose present, no nasal discharge noted and no epistaxis Face and sinus: Yes normal facial exam, No abrasion and No laceration Mouth: Normal oral and palatal mucosa present, no drooling and no muffled voice Teeth image: 1. mild erythema and swelling around the tooth, no fluctuance. Eyes General: appearance normal, both eyes and all related structures Periorbital: periorbital findings normal Eyelids: Yes eyelids normal Conjunctivae: conjunctivae normal Pupils: Equal, round and reactive pupils present EOM: EOMs intact bilaterally Neck Neck: Yes normal visual inspection, Yes full ROM and Yes no lymphadenopathy Chest Chest palpation & inspection: normal inspection of the chest Resp Effort & Inspection: normal respiratory effort and able to speak in complete sentences GI Inspection: Yes normal to inspection Neuro General: patient oriented x3 and moves all extremities Cranial nerves: Yes Equal, round and reactive pupils present Cognition (Neuro): normal cognition Motor exam (neuro): 5/5 motor strength present throughout Sensory Exam: Normal double simultaneous stimulation for sensation Coordination: [id number] test normal Extrem General: Yes normal to inspection, Yes full ROM and Yes capillary refill normal Psych Appearance: grossly normal Mental Status: mental status grossly normal Affect: normal affect Attitude: cooperative Thought process: Normal thought process present Thought content: Normal thought content present Insight: Good insight present (Psych) Medications Administered Discontinued Medications Generic Name Dose Route Start Last Admin Trade Name Max PRN Reason Stop Dose Admin Oxycodone HCl 10 mg 04/23/23 13:10 04/23/23 13:28 Oxycodone Hcl Immed Release 5 Mg Tablet PO 04/23/23 13:11 10 mg ONCE ONE Administration Medical Decision Making Medical Decision Making [facility] Narrative: Patient is a 48 year old assigned female at with a history of chronic pancreatitis presenting to the emergency department today with right sided mouth pain. Patient's physical exam was as noted in the physical exam portion of this chart. I explained my physical exam findings to the patient. I answered all questions asked by the patient. Patient received a dose of oxycodone which she stated helped her symptoms significantly. I stressed the importance of the patient taking her medication as prescribed. I stressed the importance of the patient following up with her primary care provider and a dentist. I stressed the importance of the patient returning to the emergency department immediately if her symptoms were to worsen or if she were to develop any dizziness, shortness of breath, difficulty breathing, chest pain, blurry vision, loss of vision, nausea, vomiting, abdominal pain, fever, chills, back pain, or any other complaints. Patient verbalized agreement and understanding with this treatment plan and discharge. Differential Diagnosis Differential Diagnoses: The differential diagnosis associated with the presentation includes Dental abscess Dental pain Mouth pain Prescription Management I considered prescription management with: Pain Medication (patient prescribed pain medication) and Antibiotic (patient prescribed an antibiotic) Discharge Plan Discharge Clinical Impression: Abscess, dental Patient Disposition: Home, Self-Care Instructions: Dental Abscess (ED) Additional Instructions: Follow up with your primary care provider and a dentist. Return to the emergency department immediately if your symptoms worsen or if you develop any dizziness, shortness of breath, difficulty breathing, chest pain, blurry vision, loss of vision, nausea, vomiting, abdominal pain, fever, chills, back pain, or any other complaints. Call or visit any of the clinics below to establish with a dentist: [facility] [address] [place] [address] [facility] [address] [facility], [address] [address] [place] [address] [facility] [address] [facility] [address] [place] [address] [facility] [address] [place] [address] [place] [address] [place] [address] Prescriptions: New penicillin V potassium 500 mg tablet 500 mg PO BID 10 Days Qty: 20 0RF naproxen 500 mg tablet 500 mg PO BID 7 Days Qty: 14 0RF chlorhexidine gluconate [Peridex] 0.12 % mouthwash 15 ml buccal BID Qty: 118 0RF No Action cholecalciferol (vitamin D3) 50 mcg (2,000 unit) capsule 50 mcg PO DAILY 90 Days Qty: 90 1RF esomeprazole magnesium [Nexium] 40 mg capsule,delayed release(DR/EC) 40 mg PO DAILY Qty: 30 5RF Linzess 72 mcg capsule 72 mcg PO DAILY Qty: 30 2RF sucralfate 1 gram tablet 1 g PO BEDTIME Qty: 90 2RF Referrals: [facility] Family Medicine [Provider Group] (Call to establish and follow up with a primary care provider. If you already have a primary care provider, please follow up with them.) [facility] Primary Care, Marylu [Provider Group] (Call to establish and follow up with a primary care provider. If you already have a primary care provider, please follow up with them.) [facility] Primary Care,Jayy [Provider Group] (Call to establish and follow up with a primary care provider. If you already have a primary care provider, please follow up with them.) Interventions: ED Discharge Assessment Last Done: 04/23/23 13:31 Discharge Date/Time: 04/23/23 13:32 Print Language: Latvian
[2023-04-23] MEDS: oxyCODONE HCl Immed Release 5 MG TABLET 10 MG PO (13:28)
== END 2023-04-23 13:32 | disposition home or self-care (01) ==
PROVIDERS: Emergency Provider Emergency Medicine
DX: K04.7 Periapical abscess without sinus (principal); Z79.899 Other long term (current) drug therapy
CPT/HCPCS: 99283

== ENCOUNTER → 2023-06-11 07:59 | Outpatient (REF) | payer OTHER, SELFPAY ==
--- NOTE | 2023-06-11 08:03 | CA_ITS ---
Transthoracic Echocardiogram Patient (Last, First, Middle): Courtney Fuentes, Gender: Female Date of : 1975 Age: 48 Procedure Date: 06/11/2023 Procedure Type: Transthoracic Echocardiogram Location: OP Height: 157.48 cm Weight: 73.48 kg BSA: 1.75 m2 Heart Rate: bpm BP: 122 / 68 mmHg Bid Clerk: Referring MD: Bishop Golden MD Symptoms: I25.10 - Atherosclerotic heart disease of [place] coronary artery without... Study Quality: Adequate w Contast ECG Rhythm: Sinus Conclusions: - The left ventricular systolic function is normal. The calculated ejection fraction is 59% by biplane method. - No obvious valvular pathology seen on this study. Findings Procedure Information Contrast agent, definity, is being given per protocol without apparent complications. Left Ventricle Normal left ventricular cavity size. There is normal left ventricular wall thickness. The left ventricular systolic function is normal. The calculated ejection fraction is 59% by biplane method. There is no evidence of regional wall motion abnormalities. Diastolic function is normal for age. Right Ventricle Normal right ventricular cavity size and systolic function. Atria Both atria are normal in size. Aortic Valve The aortic valve was not well visualized. There is no aortic valve stenosis. There is no aortic valve regurgitation. Mitral Valve The mitral valve appears normal. There is no mitral valve regurgitation. There is no mitral valve stenosis. Pulmonic Valve The pulmonic valve is likely normal. Tricuspid Valve Normal tricuspid valve structure. There is trace tricuspid valve regurgitation. There is no evidence of pulmonary hypertension. Great Vessels The asc aorta and aortic arch are normal in size. Venous The inferior vena cava is normal in size and collapses greater than 50% with inspiration. Pericardium/Pleural There is no evidence of pericardial effusion. Prior Study Comparison No prior study available for comparison. Recommendations, Care & Conclusions No obvious valvular pathology seen on this study. Measurements 2D Linear Measurements RVIDd: 3.41 RVIDd Index: 1.95 IVSd: 0.90 0.6-0.9/0.6-1.0 cm LVIDd: 3.82 3.9-5.3/4.2-5.9 cm LVIDd Index: 2.18 2.4-3.2/2.2-3.1 cm/m2 LVIDs: 2.29 2.0-3.6 cm LVPWd: 0.96 0.7-1.1 cm Ao Root: 3.10 2.1-3.5 cm LA Diam: 2.40 2.7-3.8/3.0-4.0 cm LAIDs Index: 1.37 1.5-2.3 cm/m2 LV Mass: 132.41 67-162/88-224 g LV Mass Index: 75.66 43-95/49-115 g/m2 LVOT Diam: 1.90 3.0+(-)1.3 cm 2D Systolic Function EF 4C: 60.40 >55% EF 2C: 56.20 >55% EF BiP: 59.00 >55% Mitral Valve MV Pk E: 0.90 MV PK A: 0.78 MV Decel Time: 196.00 E/A: 1.20 E'Lateral: 12.60 E'Medial: 6.85 E/E' Med: 13.10 E/E' Lat: 7.10 PHT: 58.00 MVA PHT: 3.79 Decel [place]: 4.58 Aortic Valve AoV Pk [place]: 1.64 AoV Mn [place]: 0.96 AoV VTI: 0.38 AoV Pk Grad: 11.00 Aov Mn Grad: 5.00 ANGELICA Cont.VTI: 2.20 LVOT LVOT Pk [place]: 1.21 LVOT Mn [place]: 0.80 LVOT VTI: 0.29 LVOT Pk Grad: 6.00 LVOT Mn Grad: 3.00 LVOT Diam: 1.90 LVOT Area: 2.84 Diastolic Function MV Pk E: 0.90 MV Pk A: 0.78 E/A: 1.20 E'Medial: 6.85 E/E' Med: 13.10 E' Laterial: 12.60 E/E' Lat: 7.10 Right Ventricle TAPSE (mm): 23.00 Tricuspid Valve TR Pk [place]: 1.93 TR Pk Grad: 15.00 RA Press: 3.00 RVSP: 18.00 Great Vessels Aorta Ao Root-2D: 3.10 2.0-3.7 cm Ao Asc: 3.00 2.1-3.4 cm Ao Arch: 2.90 Pulmonary Valve PV Pk [place]: 1.02 Peak PV Grad: 4.00 Updated in Other Vendor System with Status of Final Bishop Golden MD electronically signed on 06/11/2023 4:15:50 PM with status of Final
== END ==
LOC: HO.CARD 07:59
PROVIDERS: Visit Provider Internal Medicine
DX: R07.9 Chest pain, unspecified (principal); I25.10 Atherosclerotic heart disease of native coronary artery without angina pectoris
CPT/HCPCS: 93306; Q9957

== ENCOUNTER → 2023-06-11 08:03 | Outpatient (BNV) | payer OTHER, SELFPAY | PROVIDERS: Visit Provider Internal Medicine | DX: I25.10 Atherosclerotic heart disease of native coronary artery without angina pectoris (principal) | CPT/HCPCS: 93306 ==

== ENCOUNTER 2023-06-18 09:45 | Outpatient (AMB) | payer OTHER, SELFPAY ==
--- NOTE | 2023-06-18 09:50 | MHC.OFFVIS ---
Intake Vital Signs 06/18/23 09:51 Height 5 ft 2 in Weight 160 lb 14.999 oz BMI 29.4 Blood Pressure Location Lt brachial Position Sitting Intake Visit Reasons: 5 week follow up Intake Note: Courtney presents in the office as a 5 week follow up. CC: Patient was recently in the hospital ([place]) to the due to her stomach pains. She said this time she was vomiting for an hour and the pains were stronger than usually. her LFTs and WBC were high and they told her that she was having inflamation in her pancreas. At the time she was not having any irregular bowel movements. She would like to know if she can be referred over to the Gastro in [place]. They did the MRCP and did not find anything. She was on ABX. 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 Patient was encouraged to avoid dietary triggers in late night snacking. Staying upright for minimal 3 hours after meals discussed with patient. Epigastric pain Postprandial epigastric discomfort. Continue PPI therapy and sucralfate IBS (irritable bowel syndrome) Postprandial abdominal bloating. Continue Linzess, I will see patient in 5 weeks, sooner on as needed basis. Patient is agreeable to this plan and verbalizes understanding of instructions. She was given the opportunity to ask questions and all questions answered. TODAY'S VISIT Patient is here today for follow-up. Patient reports that she stopped taking all of her medications. States that she was not feeling like it was helping her that much. In the beginning Nexium and sucralfate worked. Patient took it for couple months, felt like it stopped working. Patient stopped taking it. Patient had multiple tests done that included MRI and ultrasound. Status post cholecystectomy in November of 2021. ERCP was attempted when admitted to hospital with abdominal pain and increased liver enzymes. However unable to succeed with the procedure, patient was transferred to [facility] and ERCP done at [facility] back in January of 2022. Needle-knife precut papillotomy was performed with successful biliary sphincterotomy. 4 mm bile duct stone retrieved after additional dilation of the ampulla. Normal pancreatogram. Patient had colonoscopy and upper endoscopy in June of 2022. Upper endoscopy showed normal stomach and duodenum and mild esophagitis. We repeated upper endoscopy in July of 2022 and was normal. At that point patient was taking Nexium and sucralfate and continue to taking both untill just couple months ago when she stopped. Patient reports that she is very careful on what she is eating. She is not eating anything fried, spicy. She is not eating any fast food. Two weeks ago on Friday patient went camping and after dinner started having abdominal pain. Patient was vomiting reported severe epigastric discomfort. Patient went to emergency room in [place]. She had elevated liver enzymes ALT 245, AST 349 and lipase 175. Patient's bili uc was 0.9. MRCP showed unremarkable pancreas, hepatic steatosis. No pancreatic duct dilation. Unremarkable study. Impression: Status post cholecystectomy without biliary duct dilation or choledocholithiasis, hepatic steatosis Today in the office patient presents looking well, however she feels frustrated as she continues with occasional epigastric discomfort. Patient states that she was told by providers at the hospital that she needs specialist for her pancreas that possibly she might have dysfunction of sphincter oddi. As mentioned above patient did had sphincterectomy last February. Patient denies drinking alcohol. Patient denies eating food that is spicy like I said earlier patient states that she is eating healthy. [facility] Medical History Fatigue Adult general medical exam Osteoarthritis of foot, right Transaminitis Abdominal pain Chest pain Elevated liver function tests Rib pain on right side GERD (gastroesophageal reflux disease) Bilateral hand pain Right knee pain Cough Right foot pain Left foot pain Elevated platelet count CATHY (generalized anxiety disorder) Moderate recurrent major depression Chronic GERD Pain in left shoulder Chest discomfort Obesity (BMI 30.0-34.9) FH: breast cancer in first degree relative PCOS (polycystic ovarian syndrome) Anxiety and depression Chest pain Vitamin D deficiency Hand pain, right Depression Fibromyalgia Thyroid nodule Cervical cancer Surgical History History of esophagogastroduodenoscopy (EGD) Hx of colonoscopy Status post ablation of incompetent vein using laser Hx of cholecystectomy H/O tubal ligation H/O cone biopsy of cervix Previous back surgery Family History Mother Diabetes Lung cancer Father Pancreatitis Sister History of breast cancer Ovarian cancer Sister Breast cancer, Onset Age: 50 Sister Breast cancer, Onset Age: 50 Sister Thyroid cancer Breast cancer Bone cancer Social History Housing: House Alcohol intake: never Patient Tobacco Use Status: Never used Tobacco e-Cigarette/Vaping Use: Never Used Second Hand Smoke Exposure: No service: No Current occupational status: employed Current occupation: [employer] Current occupational exposures/hazards: No Sexual orientation: Straight/Heterosexual Gender identity: Female Cognitive needs: No Hearing needs: No Vision needs: No Review of Systems Const Denies weight gain and Denies weight loss ENT Reports no additional complaints, Denies dysphagia and Denies odynophagia Card Reports no additional complaints Resp Reports no additional complaints GI Reports abdominal pain (epigastric), Denies belching, Denies melena, Denies bloating, Denies change in bowel habits, Denies dysphagia, Denies excessive flatus, Denies dyspepsia, Reports heartburn, Denies diarrhea, Denies loose stools, Denies nausea, Denies odynophagia and Denies vomiting Reports no additional complaints Musc Reports no additional complaints Neuro Reports no additional complaints Psych Reports no additional complaints Endo Reports no additional complaints Physical Exam Vital Signs: BMI result Body Mass Index 29.4 Const General: healthy appearing, no acute distress and well developed Nutritional Appearance: obese Orientation/consciousness: patient oriented x3 HEENT Head: Yes normal to inspection, Yes normocephalic and Yes atraumatic Face and sinus: Yes normal facial exam Mouth: Normal oral and palatal mucosa present Throat: Yes posterior oropharynx normal, Yes tonsils normal and Yes uvula midline Eyes General: appearance normal, both eyes and all related structures Neck Neck: Yes normal visual inspection, Yes full ROM and Yes trachea midline Thyroid: Thyroid normal Resp Effort & Inspection: normal respiratory effort, able to speak in complete sentences, no tracheal deviation and symmetric chest movement Auscultation: clear to auscultation bilaterally Cardio Rate: regular rate Heart sounds: S1 normal heart sound present and S2 normal heart sound present GI Inspection: Yes normal to inspection, No distended and Yes obesity Palpation (GI): Soft to palpation, not firm, nontender and No hepatosplenomegaly present Auscultation: normal bowel sounds General: Yes no CVA tenderness Back/Spine/Pelvis Back: no CVA tenderness Skin General skin exam: elasticity normal, turgor normal and dry skin Neuro General: patient oriented x3 Psych Appearance: grossly normal Mental Status: mental status grossly normal Speech and movement: Normal speech and movement present Affect: Anxious affect present Assessment & Plan Assessment & Plan (1) Transaminitis: Code(s): R74.01 - Elevation of levels of liver transaminase levels Plan: Will repeat enzymes today. Patient does not drink alcohol. I will check phosphatidylethanol as during the last episode patient's AST was 349 and her ALT was 245. Case discussed with Dr. Nava who will be taking over her case. Patient will probably go for liver biopsy (2) Pancreatitis: Code(s): K85.90 - Acute pancreatitis without necrosis or infection, unspecified Qualifiers: Chronicity: chronic Pancreatitis type: unspecified pancreatitis type Qualified Code(s): K86.1 - Other chronic pancreatitis Plan: Will repeat lipase and amylase. Last admitted 2 weeks ago to with pancreatitis. Patient was treated with antibiotics. (3) Epigastric pain: Code(s): R10.13 - Epigastric pain Plan: Patient continues to have epigastric discomfort. Patient to try does not want to try any medications. Patient states that even though when she took medications before she will feel pain. Tried offering patient also nortriptyline to treat her dyspepsia, however patient reports that she does not want to be on any medications. Appointment was made to see Dr. Nava on July 04. Patient is agreeable to this plan and verbalizes understanding of instructions. She was given the opportunity to ask questions and all questions answered. Thank you for allowing me to participate in care Orders: Orders Liver Panel Today R10.9 - Unspecified abdominal pain Gamma Glutamyl Transpeptidase Today R74.8 - Abnormal levels of other serum enzymes Phosphatidylethanol, Blood Today R74.01 - Elevation of levels of liver transaminase levels Prothrombin Time INR Today R74.8 - Abnormal levels of other serum enzymes Lipase Today R10.9 - Unspecified abdominal pain Bilirubin Direct Today R17 - Unspecified jaundice Bilirubin Total Today R10.9 - Unspecified abdominal pain Liver Kidney Microsomal Ab Today K85.90 - Acute pancreatitis without necrosis or infection, unspecified, R74.01 - Elevation of levels of liver transaminase levels Immunoglobulin G Subclasses Today K85.90 - Acute pancreatitis without necrosis or infection, unspecified Amylase Today K21.9 - Gastro-esophageal reflux disease without esophagitis Coding Level of Care Code Est Pt Level 5 (61213) Diagnoses Transaminitis R74.01 Chronic pancreatitis, unspecified pancreatitis type K86.1 Chronicity: chronic Pancreatitis type: unspecified pancreatitis type Epigastric pain R10.13 Time Spent (min) 50 Comment 30 min spent with pt and add 20 min spent rev. her records consulting w/other provide
[2023-06-18 09:51] VITALS: BMI 29.4
== END 2023-06-18 10:40 | disposition home or self-care (01) ==
PROVIDERS: Visit Provider Nurse Practitioner Family
DX: R74.01 Elevation of levels of liver transaminase levels (principal); K86.1 Other chronic pancreatitis; R10.13 Epigastric pain
CPT/HCPCS: 99215

== ENCOUNTER → 2023-06-18 09:45 | Outpatient (BNVA) | payer OTHER, SELFPAY | PROVIDERS: Visit Provider Nurse Practitioner Family | DX: R10.13 Epigastric pain (principal); R74.01 Elevation of levels of liver transaminase levels; K86.1 Other chronic pancreatitis | CPT/HCPCS: 99212 ==

== ENCOUNTER 2023-07-04 14:22 | Outpatient (AMB) | payer OTHER, SELFPAY ==
[2023-07-04 14:24] VITALS: BP 123/67; PULSE 59; BMI 29.4
--- NOTE | 2023-07-04 14:24 | MHC.OFFVIS ---
Intake Vital Signs 07/04/23 14:24 Height 5 ft 2 in Weight 161 lb BMI 29.4 BP 123/67 Blood Pressure Location Lt brachial Position Sitting Pulse 59 Intake Visit Reasons: 3 week follow up saw hammad Intake Note: Courtney presents in the office as a 3 week follow up. CC: She gets severe acid reflux, pains in the stomach. She gets both constipation and diarrhea. Allergies No Known Allergies Allergy (Verified 07/10/23 14:30) HPI HPI Comments History of Present Illness Details 48 y.o F with PMH of choledocholithiasis s/p ERCP complicated by post-ERCP pancreatitis 01/2022 with [place] [facility] followed by repeat ERCP 02/2022 [place] Ruano) who is here for second opinion for intermittent RUQ abd pain. Pt here by herself. Reports that since her gallbladder issues she continues to have intermittent sharp RUQ pain reminiscent of CBD stone pain. Accompanied by nausea and sometimes vomiting. She has been to ER for this multiple times and while LFTs are noted to be elevated at that time, imaging including MRCP is negative for CBD dil or stone. She has also undergone endoscopic work up for the RUQ pain. Initial EGD with esophagitis which resolved on follow up EGD after high dose PPI therapy. [facility] Medical History (Updated 07/12/23 @ 13:44 by Glenis Nava MD) Transaminitis Fatigue Adult general medical exam Osteoarthritis of foot, right Abdominal pain Chest pain Elevated liver function tests Rib pain on right side GERD (gastroesophageal reflux disease) Bilateral hand pain Right knee pain Cough Right foot pain Left foot pain Elevated platelet count CATHY (generalized anxiety disorder) Moderate recurrent major depression Chronic GERD Pain in left shoulder Chest discomfort Obesity (BMI 30.0-34.9) FH: breast cancer in first degree relative PCOS (polycystic ovarian syndrome) Anxiety and depression Chest pain Vitamin D deficiency Hand pain, right Depression Fibromyalgia Thyroid nodule Cervical cancer Surgical History History of esophagogastroduodenoscopy (EGD) Hx of colonoscopy Status post ablation of incompetent vein using laser Hx of cholecystectomy H/O tubal ligation H/O cone biopsy of cervix Previous back surgery Family History Mother Diabetes Lung cancer Father Pancreatitis Sister History of breast cancer Ovarian cancer Sister Breast cancer, Onset Age: 50 Sister Breast cancer, Onset Age: 50 Sister Thyroid cancer Breast cancer Bone cancer Social History Housing: House Alcohol intake: never Patient Tobacco Use Status: Never used Tobacco e-Cigarette/Vaping Use: Never Used Second Hand Smoke Exposure: No service: No Current occupational status: employed Current occupation: [employer] Current occupational exposures/hazards: No Sexual orientation: Straight/Heterosexual Gender identity: Female Cognitive needs: No Hearing needs: No Vision needs: No Review of Systems Const All systems reviewed & are unremarkable except as noted in HPI and below Physical Exam Vital Signs: Last Vital Signs Pulse 59 07/04/23 14:24 BP 123/67 07/04/23 14:24 BMI result Body Mass Index 29.4 Gen appear: NAD HEENT: nonicteric, no cervical lymphadenopathy Chest: CTA CVS: Regular S1/S2 Abd: soft, nontender, nondistended, bowel sounds + Ext: no peripheral edema Neuro: A/Ox3, noted to move all extremities spontaneously Psych: interacting appropriately Assessment & Plan Assessment & Plan (1) Transaminitis: Code(s): R74.01 - Elevation of levels of liver transaminase levels (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 However, this was challenging to review with the pt including the management i.e repeat ERCP as pt remained convinced that this provider had not looked into the previous procedure and surgical hx and that she had had different procedures/surgery done than the ones outlined above and was not in need of repeat ERCP. Despite going over the chart including scanned documents from [facility], and repeated attempts to go over the assessment and suggested management pt remained quite upset and not agreeable to this provider's recommendations and eventually walked out. She did later get in touch with the office equipment technician and has requested a follow up in a couple of weeks to go over above again. Coding Level of Care Code Est Pt Level 4 (26415) Diagnoses Transaminitis R74.01 Post-cholecystectomy syndrome K91.5 Sphincter of Oddi dysfunction K83.4
== END 2023-07-04 15:30 | disposition home or self-care (01) ==
PROVIDERS: Visit Provider Internal Medicine
DX: R74.01 Elevation of levels of liver transaminase levels (principal); K83.4 Spasm of sphincter of Oddi
CPT/HCPCS: 99214

== ENCOUNTER → 2023-07-04 14:22 | Outpatient (BNVA) | payer OTHER, SELFPAY | PROVIDERS: Visit Provider Internal Medicine | DX: K91.5 Postcholecystectomy syndrome (principal); K83.4 Spasm of sphincter of Oddi; R74.01 Elevation of levels of liver transaminase levels | CPT/HCPCS: 99212 ==

== ENCOUNTER 2023-07-10 14:06 | Outpatient (AMB) | payer OTHER, SELFPAY ==
[2023-07-10 14:07] VITALS: BP 122/80; PULSE 61; O2SAT 100; BMI 29.6
--- NOTE | 2023-07-10 14:07 | MHC.PC.OV ---
Vital Signs 07/10/23 14:07 Height 5 ft 2 in Weight 162 lb BMI 29.6 BP 122/80 Blood Pressure Location Lt brachial Position Sitting Pulse 61 Pulse Source Pulse Oximeter Temp Source Skin Pulse Oximetry (%) 100 Oxygen Delivery Method Room Air Intake Visit Reasons: [facility] 06/06 stomach pain Intake Note: Patient is here to follow-up after a visit the emergency department at [facility] on 06/06/23 Comic Artist Required: No Allergies No Known Allergies Allergy (Verified 07/10/23 14:30) Medication List - Last Reconciled 07/10/23 by IRIS Lai famotidine 10 mg PO BEDTIME PRN Tobacco use date assessed: 07/10/23 Dental Screening Dental Screen Date: 07/10/23 Did you have a dental visit in the last 12 months?: Yes Did you have a dental problem in the last 6 months where you did not have access to dental care?: No Was dental information given to patient?: Patient has dentist HPI [facility] 06/06 stomach pain HPI Details Patient is a 48-year-old female presents today to follow-up after [facility] discharge. Admission date 06/06/2023, discharge date 06/09/2023. Discharge diagnosis abnormal LFTs, abdominal pain. Patient of Dr. Linder. Patient had MRCP 06/07/23 which showed status post cholecystectomy without biliary duct dilation or choledocholithiasis identified. Hepatic steatosis. Patient was instructed to follow up with PCP and GI provider. In the hospital, alk-phos 178, ALT 220, AST 63, total bilirubin 3.1, conjugated bilirubin 2.2. Patient was seen by [facility] provider 06/18/2023 and recommended possibly to have liver biopsy. Patient was scheduled to see Dr. Nava 07/04/2023 although patient did not go to her appointment and she would like to see another provider, patient will call [facility] office and schedule appointment with Dr. Medrano. Patient reports gallbladder removal surgery 01/2023 and since then she started with GI problems. She reports acid reflux, epigastric and right upper quadrant pains. Patient reports that she stopped taking all of her medications due to them not working. Patient reports slightly improved pain after being discharged from the hospital. She does take Pepcid at bedtime sometimes to help with acid reflux. No nausea or vomiting, reports chronic intermittent diarrhea/constipation. Patient was also encouraged to complete her blood work that was ordered by [facility] Medical History (Updated 07/10/23 @ 15:07 by IRIS Lai) Transaminitis Fatigue Adult general medical exam Osteoarthritis of foot, right Abdominal pain Chest pain Elevated liver function tests Rib pain on right side GERD (gastroesophageal reflux disease) Bilateral hand pain Right knee pain Cough Right foot pain Left foot pain Elevated platelet count CATHY (generalized anxiety disorder) Moderate recurrent major depression Chronic GERD Pain in left shoulder Chest discomfort Obesity (BMI 30.0-34.9) FH: breast cancer in first degree relative PCOS (polycystic ovarian syndrome) Anxiety and depression Chest pain Vitamin D deficiency Hand pain, right Depression Fibromyalgia Thyroid nodule Cervical cancer Surgical History History of esophagogastroduodenoscopy (EGD) Hx of colonoscopy Status post ablation of incompetent vein using laser Hx of cholecystectomy H/O tubal ligation H/O cone biopsy of cervix Previous back surgery Family History Mother Diabetes Lung cancer Father Pancreatitis Sister History of breast cancer Ovarian cancer Sister Breast cancer, Onset Age: 50 Sister Breast cancer, Onset Age: 50 Sister Thyroid cancer Breast cancer Bone cancer Social History Housing: House Alcohol intake: never Patient Tobacco Use Status: Never used Tobacco e-Cigarette/Vaping Use: Never Used Second Hand Smoke Exposure: No service: No Current occupational status: employed Current occupation: [employer] Current occupational exposures/hazards: No Sexual orientation: Straight/Heterosexual Gender identity: Female Cognitive needs: No Hearing needs: No Vision needs: No Questionnaire PHQ-9 Over the last 2 weeks, how often have you been bothered by any of the following problems? 1. Little interest or pleasure in doing things: several days 2. Feeling down, depressed, or hopeless: several days 3. Trouble falling or staying asleep, or sleeping too much: not at all 4. Feeling tired or having little energy: not at all 5. Poor appetite or overeating: not at all 6. Feeling bad about yourself - or that you are a failure or have let yourself or your family down: not at all 7. Trouble concentrating on things, such as reading the newspaper or watching television: not at all 8. Moving or speaking so slowly that other people could have noticed. Or the opposite - being so fidgety or restless that you have been moving around a lot more than usual: not at all 9. Thoughts that you would be better off or of hurting yourself in some way: not at all Total score: 2 Depression Screening Interpretation: Negative Depression Screening Done: Yes 01202 - PHQ-9 Billing: Yes Source: Developed by Drs. Lawrence Gross, Whitney Casanova, Linwood Kasper and colleagues, with an educational franck from [employer]. Thrive Questionnaire Date Thrive assessed: 01/22/23 AUDIT C Alcohol Use Questionnaire (AUDIT-C) 1. How often do you have a drink containing alcohol?: Never 3. How often do you have six or more drinks on one occasion?: Never Total Score: 0 Score Reviewed/Action Taken: No CATHY-7 AMB Questionnaire CATHY-7 Date CATHY - 7 assessed: 01/22/23 Source: Developed by Drs. Lawrence Gross, Whitney Casanova, Linwood Kasper and colleagues, with an educational franck from [employer]. Review of Systems Const Denies body aches, Denies chills, Denies fever(s) and Denies headache(s) ENT Denies dizziness, Denies otalgia, Denies headache(s), Denies nasal discharge, Denies sinus pain and Denies sore throat Card Denies chest pain, Denies edema, Denies lightheadedness and Denies dyspnea Resp Denies cough, Denies dyspnea and Denies wheezing GI Reports abdominal pain, Reports bloating, Reports constipation, Reports heartburn, Reports diarrhea, Denies nausea and Denies vomiting Denies dysuria Musc Denies myalgias Skin/Breast Denies rash Neuro Denies dizziness and Denies headache(s) Aller/Immun Denies wheezing Physical exam (Primary Care) Vital Signs: Last Vital Signs Pulse 61 07/10/23 14:07 BP 122/80 07/10/23 14:07 Pulse Ox 100 07/10/23 14:07 Oxygen Delivery Method Room Air 07/10/23 14:07 BMI result Body Mass Index 29.6 Tobacco/Smoking Status: Tobacco use Status Tobacco use date assessed 07/10/23 07/10/23 14:08 Patient Tobacco Use Status Never used Tobacco 07/10/23 14:08 e-Cigarette/Vaping Use Never Used 07/10/23 14:08 PHQ-9: PHQ-9 Score PHQ-9: Total score 2 07/10/23 14:08 Depression Screening Interpretation: Negative Thrive Assessment: Date of Thrive Assessment Date Thrive assessed 01/22/23 07/10/23 14:08 Const General: cooperative and no acute distress Orientation/consciousness: patient oriented x3 HENMT Head: Yes normocephalic and Yes atraumatic Face and sinus: Yes sinuses nontender Mouth: oropharynx normal and moist mucous membranes Throat: Yes posterior oropharynx normal Eyes General: appearance normal, both eyes and all related structures Neck Neck: Yes normal visual inspection, Yes full ROM and Yes no lymphadenopathy Resp Effort & Inspection: normal respiratory effort and able to speak in complete sentences Auscultation: clear to auscultation bilaterally, no crackles, no rales, no rhonchi and no wheezes Cardio Rate: regular rate Rhythm: regular rhythm Heart sounds: S1 normal heart sound present and S2 normal heart sound present GI Palpation (GI): Soft to palpation, not firm, Tenderness to palpation present (GI) in the RUQ; with no rebound tenderness, no guarding, not rigid and no hepatosplenomegaly Auscultation: normal bowel sounds Skin General skin exam: no rashes or lesions noted Neuro General: patient oriented x3 Gait exam (Neuro): Normal gait present Extrem General: Yes full ROM and No edema Assessment and Plan Assessment & Plan (1) Chronic GERD: Code(s): K21.9 - Gastro-esophageal reflux disease without esophagitis Plan: Patient is on Pepcid at bedtime p.r.n. Avoid GERD trigger foods (2) Hospital discharge follow-up: Code(s): Z09 - Encounter for follow-up examination after completed treatment for conditions other than malignant neoplasm (3) Transaminitis: Code(s): R74.01 - Elevation of levels of liver transaminase levels Plan: Patient was encouraged to complete her blood work that was ordered by [facility] Continue to follow-up with [facility], patient will schedule appointment with Dr. Medrano (4) Hepatic steatosis: Code(s): K76.0 - Fatty (change of) liver, not elsewhere classified Plan: Reinforced low-cholesterol diet Plan Keep appointment with PCP as scheduled or follow-up sooner as needed Coding Level of Care Code Est Pt Level 3 (35898) Diagnoses Chronic GERD K21.9 Hospital discharge follow-up Z09 Transaminitis R74.01 Hepatic steatosis K76.0
== END 2023-07-10 15:20 | disposition home or self-care (01) ==
PROVIDERS: Visit Provider Nurse Practitioner Family
DX: K21.9 Gastro-esophageal reflux disease without esophagitis (principal); Z09 Encounter for follow-up examination after completed treatment for conditions other than malignant neoplasm; R74.01 Elevation of levels of liver transaminase levels; K76.0 Fatty (change of) liver, not elsewhere classified; Z85.41 Personal history of malignant neoplasm of cervix uteri
CPT/HCPCS: 99213

== ENCOUNTER 2023-08-18 09:47 | Outpatient (REF) | payer OTHER, SELFPAY ==
[2023-08-18 10:25] LABS: MANUAL DIFF FLAG NO
[2023-08-18 10:59] LABS: Basophils Percent Auto 0.5 % (0-2); Eosinophils Absolute Auto 0.1 X10*3/uL (0.0-0.4); Eosinophils Percent Auto 0.9 % (0-4); Hematocrit 43.7 % (37.0-47.0); Hemoglobin 13.8 g/dl (12.0-16.0); Imm Gran Abs Auto 0.02 X10*3/uL (0.00-0.03); Imm Gran Pct Auto 0.3 % (0.0-0.4); Lymphocytes Percent Auto 26.9 % (20-40); Mean Corpuscular HGB Conc 31.6 g/dl (31.0-35.0); Mean Corpuscular Hemoglobin 27.9 pg (27.0-33.0); Mean Corpuscular Volume 88.3 fL (80.0-98.0); Monocytes Absolute Auto 0.3 X10*3/uL (0.1-1.2); Monocytes Percent Auto 4.2 % (2-11); Neutrophils Percent Auto 67.2 % (45-73); Platelet Count 397 X10*3/uL (160-400); Red Blood Count 4.95 X10*6/uL (4.20-5.50); Red Cell Distribution Width 13.2 % (11.0-16.0); White Blood Count 7.4 X10*3/uL (4.8-10.8)
[2023-08-18 11:36] LABS: Bilirubin Total 0.6 mg/dL (0.0-1.0)
[2023-08-18 11:37] LABS: Bilirubin Direct 0.1 mg/dL (0.0-0.5)
[2023-08-18 11:44] LABS: Alanine Aminotransferase 39 U/L (0-31); Albumin Level 4.3 g/dL (3.5-5.0); Alkaline Phosphatase 124 U/L (39-117); Amylase 107 U/L (28-100); Aspartate Amino Transferase 20 U/L (5-31); Bilirubin Direct 0.2 mg/dL (0.0-0.5); Bilirubin Total 0.5 mg/dL (0.0-1.0); Gamma Glutamyl Transpeptidase 58 U/L (7-33); INTERNATIONAL NORM RATIO 0.9 (0.9-1.1); Prothrombin Time 11.1 SEC (11.1-13.3); Total Protein 7.5 g/dL (6.5-8.0)
[2023-08-18 11:57] LABS: Vitamin D 25-OH Total 34.6 ng/mL (>30)
[2023-08-18 12:03] LABS: Lipase 23 U/L (8-78)
[2023-08-21 09:49] LABS: Liver Kidney Microsomal Ab <=20.0 U (<=20.0)
[2023-08-21 15:43] LABS: Immunoglobulin G Subclass 1 620 mg/dL (382-929); Immunoglobulin G Subclass 2 275 mg/dL (241-700); Immunoglobulin G Subclass 3 44 mg/dL (22-178); Immunoglobulin G Subclass 4 47.3 mg/dL (4-86); Immunoglobulin G Total 1086 mg/dL (600-1640)
[2023-08-22 10:21] LABS: Phosphatidylethanol 16:0-18:1 NEGATIVE; Phosphatidylethanol 16:0-18:2 NEGATIVE
== END 2023-08-18 09:48 | disposition home or self-care (01) ==
LOC: HO.LAB 09:47
PROVIDERS: Absent Provider Nurse Practitioner Family; PCP Internal Medicine; Visit Provider Nurse Practitioner Family
DX: Z00.00 Encounter for general adult medical examination without abnormal findings (principal); R17 Unspecified jaundice; R74.8 Abnormal levels of other serum enzymes; R74.01 Elevation of levels of liver transaminase levels; R10.9 Unspecified abdominal pain; K85.90 Acute pancreatitis without necrosis or infection, unspecified; K21.9 Gastro-esophageal reflux disease without esophagitis
CPT/HCPCS: 36415; 80076; 80321; 82150; 82247; 82248; 82306; 82784; 82977; 83690; 85025; 85610; 86376

== ENCOUNTER 2023-08-19 09:53 | Outpatient (AMB) | payer OTHER, SELFPAY ==
--- NOTE | 2023-08-19 09:56 | MHC.OFFVIS ---
Intake Vital Signs 08/19/23 09:59 Height 5 ft 2 in Weight 163 lb 2.273 oz BMI 29.8 BP 118/61 Blood Pressure Location Lt brachial Position Sitting Pulse 85 Intake Visit Reasons: blood in stool Intake Note: Courtney presents in the office as a follow up for blood in the stool. CC: States that she occasionally has blood in the stool and she states she is constipated all the time. She gets bloating every day in her abdomen. Allergies No Known Allergies Allergy (Verified 08/19/23 09:59) HPI blood in stool HPI Details LAST VISIT WITH DR. 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 However, this was challenging to review with the pt including the management i.e repeat ERCP as pt remained convinced that this provider had not looked into the previous procedure and surgical hx and that she had had different procedures/surgery done than the ones outlined above and was not in need of repeat ERCP. Despite going over the chart including scanned documents from [facility], and repeated attempts to go over the assessment and suggested management pt remained quite upset and not agreeable to this provider's recommendations and eventually walked out. She did later get in touch with the optics technical officer and has requested a follow up in a couple of weeks to go over above again. TODAY'S VISIT Patient is here today for follow-up. Patient was last seen by Dr. Brooks as mentioned above and was recommended to go for ERCP for possible stenosis of sphincter of Oddi. Patient believes that she has appointments set up already. Patient reports to have postprandial abdominal bloating and burning in the right upper quadrant and left upper quadrant with almost anything she eats. Patient reports that she gets occasional constipation. Patient states that she tries to eat healthy is not eating anything high in fat or fried. Patient states that she usually steams her vegetables and avoids eating meat. Patient reports occasional dyspepsia takes famotidine on as needed basis. Patient reports that famotidine helps sometimes, however she continues to feel acid burning her throat. [facility] Medical History Fatigue Adult general medical exam Osteoarthritis of foot, right Transaminitis Abdominal pain Chest pain Elevated liver function tests Rib pain on right side GERD (gastroesophageal reflux disease) Bilateral hand pain Right knee pain Cough Right foot pain Left foot pain Elevated platelet count CATHY (generalized anxiety disorder) Moderate recurrent major depression Chronic GERD Pain in left shoulder Chest discomfort Obesity (BMI 30.0-34.9) FH: breast cancer in first degree relative PCOS (polycystic ovarian syndrome) Anxiety and depression Chest pain Vitamin D deficiency Hand pain, right Depression Fibromyalgia Thyroid nodule Cervical cancer Surgical History History of esophagogastroduodenoscopy (EGD) Hx of colonoscopy Status post ablation of incompetent vein using laser Hx of cholecystectomy H/O tubal ligation H/O cone biopsy of cervix Previous back surgery Family History Mother Diabetes Lung cancer Father Pancreatitis Sister History of breast cancer Ovarian cancer Sister Breast cancer, Onset Age: 50 Sister Breast cancer, Onset Age: 50 Sister Thyroid cancer Breast cancer Bone cancer Social History Housing: House Alcohol intake: never Patient Tobacco Use Status: Never used Tobacco e-Cigarette/Vaping Use: Never Used Second Hand Smoke Exposure: No service: No Current occupational status: employed Current occupation: [employer] Current occupational exposures/hazards: No Sexual orientation: Straight/Heterosexual Gender identity: Female Cognitive needs: No Hearing needs: No Vision needs: No Review of Systems Const Denies weight gain and Denies weight loss ENT Reports no additional complaints, Denies dysphagia and Denies odynophagia Card Reports no additional complaints Resp Reports no additional complaints GI Denies abdominal pain, Denies belching, Denies melena, Denies bloating, Denies change in bowel habits, Reports constipation, Denies dysphagia, Denies excessive flatus, Denies dyspepsia, Reports heartburn, Denies diarrhea, Denies loose stools, Denies nausea, Denies odynophagia and Denies vomiting Reports no additional complaints Musc Reports no additional complaints Neuro Reports no additional complaints Psych Reports no additional complaints Endo Reports no additional complaints Physical Exam Vital Signs: Last Vital Signs Pulse 85 08/19/23 09:59 BP 118/61 08/19/23 09:59 BMI result Body Mass Index 29.8 Const General: healthy appearing, no acute distress and well developed Orientation/consciousness: patient oriented x3 HEENT Head: Yes normal to inspection, Yes normocephalic and Yes atraumatic Face and sinus: Yes normal facial exam Mouth: Normal oral and palatal mucosa present Throat: Yes posterior oropharynx normal, Yes tonsils normal and Yes uvula midline Eyes General: appearance normal, both eyes and all related structures Neck Neck: Yes normal visual inspection, Yes full ROM and Yes trachea midline Thyroid: Thyroid normal Resp Effort & Inspection: normal respiratory effort, able to speak in complete sentences, no tracheal deviation and symmetric chest movement Auscultation: clear to auscultation bilaterally Cardio Rate: regular rate Heart sounds: S1 normal heart sound present and S2 normal heart sound present GI Inspection: Yes normal to inspection, No distended and Yes obesity Palpation (GI): Soft to palpation, not firm, nontender and No hepatosplenomegaly present Auscultation: normal bowel sounds General: Yes no CVA tenderness Back/Spine/Pelvis Back: no CVA tenderness Skin General skin exam: elasticity normal, turgor normal and dry skin Neuro General: patient oriented x3 Psych Appearance: grossly normal Mental Status: mental status grossly normal Affect: normal affect Assessment & Plan Assessment & Plan (1) Hepatic steatosis: Code(s): K76.0 - Fatty (change of) liver, not elsewhere classified (2) Transaminitis: Code(s): R74.01 - Elevation of levels of liver transaminase levels (3) Sphincter of Oddi dysfunction: Code(s): K83.4 - Spasm of sphincter of Oddi Plan Will start patient on Welchol to see if her symptoms will improve.. Will send patient for HIDA scan to check for CBD patency, will consider ERCP pending HIDA scan results, however worry about pancreatitis. Patient was instructed to take Senokot to help her eliminate bowels better. If patient will have no improvement after 2 weeks she will call the office and we can put her on hyoscyamine. I will see patient in 4 weeks, sooner on as needed basis. Patient is agreeable to this plan and verbalizes understanding of instructions. She was given the opportunity to ask questions all questions answered. Thank you for allowing me to participate in her care Orders: Orders NM hepatobiliary wo pharm Today K76.0 - Fatty (change of) liver, not elsewhere classified, K83.4 - Spasm of sphincter of Oddi, R74.01 - Elevation of levels of liver transaminase levels Medications: New colesevelam (WelChol) 1,250 mg (2 x 625 mg) PO BID 120 tabs 2RF famotidine (Pepcid) 20 mg PO BID PRN 60 tabs 3RF acid reflux K29.70 - Gastritis, unspecified, without bleeding sennosides (Natural Senna Laxative) 17.2 mg (2 x 8.6 mg) PO BEDTIME 60 tabs 3RF constipation K59.00 - Constipation, unspecified Coding Level of Care Code Est Pt Level 4 (18079) Diagnoses Hepatic steatosis K76.0 Transaminitis R74.01 Sphincter of Oddi dysfunction K83.4 Time Spent (min) 40 Comment 25 minutes spent with patient and additional 15 minutes spent reviewing her records
[2023-08-19 09:59] VITALS: BP 118/61; PULSE 85; BMI 29.8
== END 2023-08-19 11:40 | disposition home or self-care (01) ==
PROVIDERS: Visit Provider Nurse Practitioner Family
DX: K76.0 Fatty (change of) liver, not elsewhere classified (principal); R74.01 Elevation of levels of liver transaminase levels; K83.4 Spasm of sphincter of Oddi
CPT/HCPCS: 99214

== ENCOUNTER → 2023-08-19 09:53 | Outpatient (BNVA) | payer OTHER, SELFPAY | PROVIDERS: Visit Provider Nurse Practitioner Family | DX: R74.01 Elevation of levels of liver transaminase levels (principal); K76.0 Fatty (change of) liver, not elsewhere classified; K91.5 Postcholecystectomy syndrome | CPT/HCPCS: 99212 ==

== ENCOUNTER 2023-09-02 08:34 | Outpatient (REF) | payer OTHER, SELFPAY ==
[2023-09-03 05:42] LABS: CT PCR NOT DETECTED (Not Detect.); NG PCR NOT DETECTED (Not Detect.)
[2023-09-03 12:21] LABS: BV Int Neg Control Negative (Negative); BV Int Pos Control Positive (Positive)
== END 2023-09-02 08:35 | disposition home or self-care (01) ==
LOC: HO.LNP 08:34
PROVIDERS: Visit Provider Advanced Practice Midwife
DX: Z01.419 Encounter for gynecological examination (general) (routine) without abnormal findings (principal); R10.2 Pelvic and perineal pain; Z20.2 Contact with and (suspected) exposure to infections with a predominantly sexual mode of transmission
CPT/HCPCS: 0353U; 87480; 87510; 87660; 99396

== ENCOUNTER → 2023-09-19 07:41 | Outpatient (REF) | payer OTHER, SELFPAY ==
--- NOTE | ~2023-09-19 | NM_ITS ---
EXAMINATION: BILIARY TRACT IMAGING STUDY CLINICAL INDICATION: Fatty liver. Spasm of sphincter of 40. Abdominal pain. Chronic GERD. Status post cholecystectomy 1 year ago. COMPARISON: CT enterography done on 03/11/2023 and MRCP done on 08/06/2022. TECHNIQUE: Scintillation camera images were obtained over the abdomen for an observation of 60 minutes following the intravenous administration of 5.0 millicuries technetium 99m mebrofenin. The radiotracer was injected through right antecubital superficial vein without complications. FINDINGS: There is good concentration of activity in the liver by 5 minutes post injection. Biliary activity is well visualized by 10 minutes, and there is good visualization of small bowel activity by 17 minutes. The gallbladder is surgically absent. NM/NM hepatobiliary wo pharm IMPRESSION: 1. The gallbladder is surgically absent. 2. The common bile duct is patent. 3. Biliary bowel transit time of 17 minutes. 4. Liver function appears normal.
== END ==
LOC: HO.NUCMED 07:41
PROVIDERS: Visit Provider Nurse Practitioner Family
DX: K76.0 Fatty (change of) liver, not elsewhere classified (principal); K83.4 Spasm of sphincter of Oddi; R74.01 Elevation of levels of liver transaminase levels
CPT/HCPCS: 78226; A9537

== ENCOUNTER 2023-09-24 07:42 | Outpatient (AMB) | payer OTHER, SELFPAY ==
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
[2023-09-24 08:12] VITALS: BP 118/59; BMI 29.3
== END 2023-09-24 08:49 | disposition home or self-care (01) ==
PROVIDERS: Visit Provider Nurse Practitioner Family
DX: K83.4 Spasm of sphincter of Oddi (principal); K21.9 Gastro-esophageal reflux disease without esophagitis; K76.0 Fatty (change of) liver, not elsewhere classified; R74.01 Elevation of levels of liver transaminase levels; K58.2 Mixed irritable bowel syndrome
CPT/HCPCS: 99214

== ENCOUNTER → 2023-09-24 07:42 | Outpatient (BNVA) | payer OTHER, SELFPAY | PROVIDERS: Visit Provider Nurse Practitioner Family | DX: K83.4 Spasm of sphincter of Oddi (principal); K21.9 Gastro-esophageal reflux disease without esophagitis; K76.0 Fatty (change of) liver, not elsewhere classified; K58.2 Mixed irritable bowel syndrome; R74.01 Elevation of levels of liver transaminase levels | CPT/HCPCS: 99212 ==

== ENCOUNTER 2023-10-02 10:41 | Outpatient (REF) | payer OTHER, SELFPAY ==
--- NOTE | ~2023-10-02 | US_ITS ---
EXAMINATION: US PELVIS CLINICAL INFORMATION: Pelvic and perineal pain COMPARISON: CT enterography 03/11/2023. TECHNIQUE: Ultrasound of the pelvis is performed using both transabdominal and transvaginal transducers along with Doppler. Transvaginal imaging is performed due to inadequate visualization transabdominally. FINDINGS: Uterus: The uterus is anteverted and measures 9.5 x 5.7 x 6.7 cm. Uterine volume 190 mL. Left lower uterine segment fibroid measures 2.7 x 2.3 x 2.9 cm. Left fundal fibroid measures 2.7 x 2.1 x 2.5 cm. Question arcuate anatomy. Nabothian cysts in the cervix. The double wall endometrial thickness is 11 mm. Adnexa: The right ovary measures 3.2 x 2.0 x 2.3 cm, volume 7.7 mL. Normal follicle is seen. No follow-up imaging recommended. The left ovary measures 1.7 x 0.9 x 1.8 cm, volume 1.5 mL. Left ovary appears normal. US/US pelvic and transvaginal IMPRESSION: No explanation for pelvic pain.
== END 2023-10-02 10:42 | disposition home or self-care (01) ==
LOC: HO.US 10:41
PROVIDERS: Visit Provider Advanced Practice Midwife
DX: R10.2 Pelvic and perineal pain (principal)
CPT/HCPCS: 76830; 76856

== ENCOUNTER 2023-10-24 08:58 | Outpatient (AMB) | payer OTHER, SELFPAY ==
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
[2023-10-24 09:22] VITALS: BP 118/64; BMI 29.0
== END 2023-10-24 09:35 | disposition home or self-care (01) ==
LOC: HO.HWS 08:58
PROVIDERS: PCP Internal Medicine; Visit Provider Advanced Practice Midwife
DX: Z71.2 Person consulting for explanation of examination or test findings (principal)
CPT/HCPCS: 99213

== ENCOUNTER → 2023-10-24 08:58 | Outpatient (BNVA) | payer OTHER, SELFPAY | PROVIDERS: PCP Internal Medicine; Visit Provider Advanced Practice Midwife | DX: Z71.2 Person consulting for explanation of examination or test findings (principal) | CPT/HCPCS: 99212 ==

== ENCOUNTER 2023-10-29 08:38 | Outpatient (REF) | payer OTHER, SELFPAY ==
[2023-10-29 10:19] LABS: Alanine Aminotransferase 24 U/L (0-31); Albumin Level 4.3 g/dL (3.5-5.0); Alkaline Phosphatase 112 U/L (39-117); Aspartate Amino Transferase 17 U/L (5-31); Bilirubin Direct 0.1 mg/dL (0.0-0.5); Bilirubin Total 0.6 mg/dL (0.0-1.0); Lipase 23 U/L (8-78); Total Protein 7.6 g/dL (6.5-8.0)
== END 2023-10-29 08:39 | disposition home or self-care (01) ==
LOC: HO.LAB 08:38
PROVIDERS: PCP Internal Medicine; Visit Provider Nurse Practitioner Family
DX: R10.9 Unspecified abdominal pain (principal); R74.01 Elevation of levels of liver transaminase levels; K83.4 Spasm of sphincter of Oddi; K21.9 Gastro-esophageal reflux disease without esophagitis; K76.0 Fatty (change of) liver, not elsewhere classified; K58.2 Mixed irritable bowel syndrome
CPT/HCPCS: 36415; 80076; 83690; 99212

== ENCOUNTER 2023-10-29 09:09 | Outpatient (AMB) | payer OTHER, SELFPAY ==
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
[2023-10-29 09:20] VITALS: BP 116/70; PULSE 74; BMI 28.9
== END 2023-10-29 10:04 | disposition home or self-care (01) ==
PROVIDERS: Visit Provider Nurse Practitioner Family
DX: K83.4 Spasm of sphincter of Oddi (principal); K21.9 Gastro-esophageal reflux disease without esophagitis; K76.0 Fatty (change of) liver, not elsewhere classified; R74.01 Elevation of levels of liver transaminase levels; K58.2 Mixed irritable bowel syndrome
CPT/HCPCS: 99214

== ENCOUNTER 2023-11-06 08:51 | Day surgery (SDC) | payer OTHER, SELFPAY ==
[2023-11-04 12:01] VITALS: BMI 28.9
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
[2023-11-06 09:35] VITALS: BMI 27.4
[2023-11-06 09:39] VITALS: BP 109/73; PULSE 72; RESP 18; TEMP 36.8; O2SAT 100
[2023-11-06] MEDS: Lactated Ringers 1,000 ML 100 ML IVCONT (11:19)
--- NOTE | 2023-11-06 12:31 | MHC.SHP ---
Pre-Procedural Eval Section A - 24 Hr Update-Section A only Date of Service: 11/06/23 Section B - Complete if H&P > 30 days Chief Complaint: gerd Details of Present Illness: epigastric pain and discomfort Relevant Family History (Specify if Yes): No Relevant Social History: None Present Medications: see Short Stay Collaborative assessment Medical History: Significant History (Fatigue Osteoarthritis of foot, right Transaminitis Abdominal pain Chest pain Elevated liver function tests Rib pain on right side GERD (gastroesophageal reflux disease) Bilateral hand pain Right knee pain Cough Right foot pain Left foot pain Elevated platelet count CATHY (generalized anxiety disorder) History of Previous Operations: Relevant previous surgery/procedure and date(s) (History of esophagogastroduodenoscopy (EGD) Hx of colonoscopy Status post ablation of incompetent vein using laser Hx of cholecystectomy H/O tubal ligation H/O cone biopsy of cervix Previous back surgery) Allergies: Allergies Allergy/AdvReac Type Severity Reaction Status Date / Time No Known Allergies Allergy Verified 10/29/23 09:15 Review of Systems Sugical H&P ROS: Negative: Constitution, Cardiovascular, Respiratory, Neurological, Psychiatric, Hem-Onc, Allergic/Immunologic, Gastrointestinal, Genitourinary, Musculoskeletal, Integumentary, Endocrine and Eyes/Ears/Nose/Throat Exam Surgical H&P Exam: Normal: HEENT, Normal: Heart, Normal: Lungs, Normal: Extremities, Normal: Abdomen, Normal: Skin and Normal: Neurological Plan Diagnosis/Plan: Unchanged I have reviewed the history and physical and performed a pertinent physical examination on my patient. No changes have occurred unless specified. Time Spent With Patient Time: Total time managing care of this patient today ____ minutes.
--- NOTE | 2023-11-06 13:24 | W.PM.OPN ---
Operative Note Operative Note Date of Service: 11/06/23 Narrative: Procedure Description: EGD Indication: GERD Anesthesia: MAC FLEXIBLE TRANSORAL UPPER GASTROINTESTINAL ENDOSCOPY UPPER ENDOSCOPY Consent: Indications for the procedure and potential complications of bleeding, perforation, reaction to medications and missed diagnosis were discussed with the patient and informed consent was obtained. Instrument: Olympus GIF H 190 J mid size upper endoscope Monitoring: Vital signs and clinical assessment, continuous EKG monitoring, Pulse oximetry, Carbon Dioxide monitoring and blood pressure monitoring were done throughout the procedure. Procedure: The patient was placed in the left lateral decubitis position and pre-procedure medications were administered and a bite block was placed. The endoscope was inserted into the mouth and advanced under direct vision to the third part of duodenum. A careful inspection was made as the upper endoscope was withdrawn including a retroflexed examination of the proximal stomach; Findings and interventions are described below. Findings: Larynx:normal Esophagus: GE junction at 34 cm, diaphragm hiatus at 38 cm, possible short segment barretts, bx taken, 4 cm sliding hiatal hernia noted, bx also taken from distal and proximal esophagus with note of tertiary contractions Stomach: Patchy gastric erythema. Biopsies were obtained. Grade 3 flap valve on retroflexed examination of the cardia. Duodenum: Mild bulbar duodenitis - bx taken Intervention: Biopsies as noted above Impression/Findings: hiatal hernia possible barretts duodenitis PLAN: await bx reflux precautions consider PPI trial trial of dicyclomine
[2023-11-06 13:27] VITALS: BP 107/60; PULSE 66; RESP 16; TEMP 36.9; O2SAT 98
[2023-11-06 13:42] VITALS: BP 114/56; PULSE 73; RESP 18; TEMP 36.9; O2SAT 98
[2023-11-06 13:57] VITALS: BP 121/59; PULSE 58; RESP 16; TEMP 36.3; O2SAT 99
== END 2023-11-06 14:45 | disposition home or self-care (01) ==
PROVIDERS: PCP Internal Medicine; Visit Provider Internal Medicine Gastroenterology
PROC: 0DJ08ZZ Inspection of Upper Intestinal Tract, Via Natural or Artificial Opening Endoscopic (ICD-10-PCS; CPT 43235; principal; 2023-11-06 12:40)
DX: K29.80 Duodenitis without bleeding (principal); K29.60 Other gastritis without bleeding; K22.4 Dyskinesia of esophagus; K44.9 Diaphragmatic hernia without obstruction or gangrene; K21.9 Gastro-esophageal reflux disease without esophagitis
CPT/HCPCS: 43239; 88305; 88313; 88341; 88342; J1596; J2704

== ENCOUNTER → 2023-11-06 08:51 | Outpatient (BNV) | payer OTHER, SELFPAY | PROVIDERS: PCP Internal Medicine; Visit Provider Internal Medicine Gastroenterology | DX: K21.9 Gastro-esophageal reflux disease without esophagitis (principal); K22.70 Barrett's esophagus without dysplasia; K29.80 Duodenitis without bleeding | CPT/HCPCS: 43239 ==

== ENCOUNTER 2023-11-13 10:49 | Outpatient (AMB) | payer OTHER, SELFPAY ==
[2023-11-13 10:50] VITALS: BP 108/70; BMI 29.3
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
== END 2023-11-13 11:35 | disposition home or self-care (01) ==
PROVIDERS: Visit Provider Internal Medicine
DX: T78.40XA Allergy, unspecified, initial encounter (principal); R00.1 Bradycardia, unspecified; E04.9 Nontoxic goiter, unspecified; K21.9 Gastro-esophageal reflux disease without esophagitis
CPT/HCPCS: 99214

== ENCOUNTER 2023-12-09 10:28 | Outpatient (REF) | payer OTHER, SELFPAY ==
--- NOTE | ~2023-12-09 | US_ITS ---
EXAMINATION: US THYROID CLINICAL INFORMATION: Nontoxic goiter, unspecified. COMPARISON: Ultrasound soft tissue head/neck thyroid dated 10/31/2021 and 10/12/2020. TECHNIQUE: Linear transducer grayscale and color Doppler examination with attention to the region of the thyroid. FINDINGS: SIZE: Measurements of the thyroid lobes and nodules are given in sagittal, anteroposterior and transverse dimensions respectively. Right Thyroid Lobe: 4.6 x 1.3 x 1.3 cm, volume 4.1 mL. Previously 5.1 x 1.4 x 1.5 cm, volume 5.6 mL. Parenchyma: The gland echotexture is homogeneous. Thyroid vascularity is normal. Left Thyroid Lobe: 4.2 x 1.2 x 1.4 cm, volume 3.6 mL. Previously 5.1 x 1.0 x 1.7 cm, volume 4.5 mL. Parenchyma: The gland echotexture is homogeneous. Thyroid vascularity is normal. Isthmus: 0.2 cm in maximum AP dimension. Previously 0.3 cm. No focal thyroid nodule is seen. NODES: No lymphadenopathy is seen in the tissue surrounding the thyroid gland. A normal-appearing lymph node is noted within the upper neck below the chin which measures 1.1 x 0.7 x 0.8 cm. US/US thyroid IMPRESSION: Normal-sized thyroid gland which demonstrates homogeneous echotexture and normal vascularity. No discrete thyroid nodules visualized.
== END 2023-12-09 10:29 | disposition home or self-care (01) ==
LOC: HO.US 10:28
PROVIDERS: PCP Internal Medicine; Visit Provider Internal Medicine
DX: E04.9 Nontoxic goiter, unspecified (principal)
CPT/HCPCS: 76536

== ENCOUNTER 2023-12-22 11:46 | Outpatient (AMB) | payer OTHER, SELFPAY ==
[2023-12-22 11:48] VITALS: BP 119/65; PULSE 59; O2SAT 99; BMI 29.4
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
== END 2023-12-22 12:28 | disposition home or self-care (01) ==
PROVIDERS: PCP Internal Medicine; Visit Provider Nurse Practitioner Family
DX: K21.9 Gastro-esophageal reflux disease without esophagitis (principal); K76.0 Fatty (change of) liver, not elsewhere classified; R74.01 Elevation of levels of liver transaminase levels; K22.70 Barrett's esophagus without dysplasia; K58.9 Irritable bowel syndrome, unspecified
CPT/HCPCS: 99214

== ENCOUNTER → 2023-12-22 11:46 | Outpatient (BNVA) | payer OTHER, SELFPAY | PROVIDERS: PCP Internal Medicine; Visit Provider Nurse Practitioner Family | DX: K59.00 Constipation, unspecified (principal); K58.9 Irritable bowel syndrome, unspecified; K76.0 Fatty (change of) liver, not elsewhere classified; K21.9 Gastro-esophageal reflux disease without esophagitis; K22.70 Barrett's esophagus without dysplasia; R10.13 Epigastric pain; R11.0 Nausea; R42 Dizziness and giddiness; R10.12 Left upper quadrant pain; R10.11 Right upper quadrant pain; R74.01 Elevation of levels of liver transaminase levels; R74.8 Abnormal levels of other serum enzymes; D64.9 Anemia, unspecified | CPT/HCPCS: 99212 ==

== ENCOUNTER 2023-12-29 09:57 | Outpatient (REF) | payer OTHER, SELFPAY | END 2023-12-29 09:58 | disposition home or self-care (01) | LOC: HO.MAMMO 09:57 | PROVIDERS: PCP Internal Medicine; Visit Provider Internal Medicine | DX: Z12.31 Encounter for screening mammogram for malignant neoplasm of breast (principal) | CPT/HCPCS: 77063; 77067 ==

== ENCOUNTER → 2023-12-29 10:00 | Outpatient (BNV) | payer OTHER, SELFPAY | PROVIDERS: PCP Internal Medicine; Visit Provider Radiology Diagnostic Radiology | DX: Z12.31 Encounter for screening mammogram for malignant neoplasm of breast (principal) | CPT/HCPCS: 77063; 77067 ==

== ENCOUNTER 2024-01-06 08:45 | Outpatient (REF) | payer OTHER, SELFPAY ==
[2024-01-06 09:32] LABS: Hematocrit 42.8 % (37.0-47.0); Hemoglobin 13.7 g/dl (12.0-16.0); Mean Corpuscular Hemoglobin 28.2 pg (27.0-33.0); Mean Corpuscular Volume 88.2 fL (80.0-98.0); Mean Platelet Volume 9.8 fL (9.4-12.3); Platelet Count 417 X10*3/uL (160-400); Red Blood Count 4.85 X10*6/uL (4.20-5.50); Red Cell Distribution Width 13.5 % (11.0-16.0); White Blood Count 8.9 X10*3/uL (4.8-10.8)
[2024-01-06 10:05] LABS: Iron 72 mcg/dL (30-160); Percent Iron Saturation 23 % (15-50); Total Iron Binding Capacity 307 mcg/dL (228-428); Unsaturated Iron Binding 235 ug/dL
[2024-01-06 10:23] LABS: Ferritin 62 ng/mL (10-250); TSH reflex Free T4 0.82 uIU/mL (0.32-4.0)
== END 2024-01-06 08:46 | disposition home or self-care (01) ==
LOC: HO.LAB 08:45
PROVIDERS: PCP Internal Medicine; Visit Provider Nurse Practitioner Family
DX: K21.9 Gastro-esophageal reflux disease without esophagitis (principal); K59.00 Constipation, unspecified; D64.9 Anemia, unspecified; R74.8 Abnormal levels of other serum enzymes
CPT/HCPCS: 36415; 82728; 83540; 84443; 85027

== ENCOUNTER 2024-01-26 09:28 | Outpatient (AMB) | payer OTHER, SELFPAY ==
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
[2024-01-26 09:36] VITALS: BP 137/75; PULSE 61; BMI 28.5
== END 2024-01-26 10:09 | disposition home or self-care (01) ==
PROVIDERS: PCP Internal Medicine; Visit Provider Nurse Practitioner Family
DX: K21.9 Gastro-esophageal reflux disease without esophagitis (principal); K76.0 Fatty (change of) liver, not elsewhere classified; K22.70 Barrett's esophagus without dysplasia; K58.9 Irritable bowel syndrome, unspecified
CPT/HCPCS: 99213

== ENCOUNTER → 2024-01-26 09:28 | Outpatient (BNVA) | payer OTHER, SELFPAY | PROVIDERS: PCP Internal Medicine; Visit Provider Nurse Practitioner Family | DX: K21.9 Gastro-esophageal reflux disease without esophagitis (principal); K76.0 Fatty (change of) liver, not elsewhere classified; K22.70 Barrett's esophagus without dysplasia; K58.9 Irritable bowel syndrome, unspecified | CPT/HCPCS: 99212 ==